=== PATIENT | male | born 1950 | race Caucasian/White ===

== ENCOUNTER → 2021-07-13 10:51 | Outpatient (BNVA) | payer OTHER, SELFPAY | PROVIDERS: Visit Provider Orthopaedic Surgery | DX: M25.561 Pain in right knee (principal); M76.891 Other specified enthesopathies of right lower limb, excluding foot | CPT/HCPCS: 73560; 73565 ==

== ENCOUNTER → 2021-12-26 13:01 | Outpatient (BNVA) | payer OTHER, SELFPAY | PROVIDERS: PCP Family Medicine; Referring Provider Family Medicine; Visit Provider Podiatrist Foot & Ankle Surgery | DX: R23.4 Changes in skin texture (principal); E11.42 Type 2 diabetes mellitus with diabetic polyneuropathy; L60.3 Nail dystrophy; M21.619 Bunion of unspecified foot; M21.41 Flat foot [pes planus] (acquired), right foot; M21.611 Bunion of right foot; M21.42 Flat foot [pes planus] (acquired), left foot; M21.612 Bunion of left foot | CPT/HCPCS: 11056; 11721; 99204 ==

== ENCOUNTER → 2022-01-21 13:59 | Outpatient (BNVA) | payer OTHER, SELFPAY | PROVIDERS: PCP Family Medicine; Visit Provider Internal Medicine | DX: I25.10 Atherosclerotic heart disease of native coronary artery without angina pectoris (principal); R07.9 Chest pain, unspecified; I10 Essential (primary) hypertension; E78.5 Hyperlipidemia, unspecified; Z95.1 Presence of aortocoronary bypass graft; I44.0 Atrioventricular block, first degree | CPT/HCPCS: 93005; 99204 ==

== ENCOUNTER 2022-03-01 10:25 | Outpatient (CLI) | payer OTHER, SELFPAY ==
[2022-03-01 10:51] VITALS: BMI 38.5
--- NOTE | 2022-03-01 10:53 | ECG_ITS ---
[facility] Test Date: 2022-03-01 Pat Name: German Carreon Department: Room: Gender: Male Business Coordinator: Mera Bravo : 1950 Requested By: Kamlesh Duckworth Order Number: [id number] Windy MD: Kamlesh Duckworth M.D. Interpretive Statements NAME OF STUDY: LEXISCAN SESTAMIBI STRESS TEST INDICATION: [sob/cp, ] Procedure: At the baseline, the blood pressure was 105/75 mmHg with a heart rate of 64 bpm. The electrocardiogram showed normal sinus rhythm, incomplete right bundle branch block, normal axis with normal ST and T's. The Lexiscan was infused over a period of 20 seconds. A total of 0.4 mg of Lexiscan was infused. The stress phase was continued for a total of 5 minutes. Heart rate was at the end of stress phase was 76 bpm and a blood pressure of 107/73 mmHg. The EKG at the peak infusion revealed since normal sinus rhythm with no significant ST-T wave changes. Sestamibi was injected 20 seconds after the Lexiscan infusion. Blood pressure at the end of recovery phase was 124/74 mmHg with a heart rate of 71 bpm. Conclusion: 1. Normal EKG response to Lexiscan infusion 2. No Lexiscan induced chest pain or cardiac arrhythmia. 3. Normal blood pressure and heart rate response. 4. Sestamibi/sestamibi perfusion scan pending; see separate report. Electronically Signed On 03-12-2022 14:53:02 CDT by Kamlesh Duckworth M.D. [email or web address]
--- NOTE | 2022-03-01 10:54 | NMCV_ITS ---
NM carolyne perf SPECT r/s* [id number] Velma German Age: 71 Gender: M : 1950 Exam Date: 03/01/2022 10:54 Ordering Phys: Kamlesh Duckworth M.D ([email or web address]) Technologist: MAHI Diaz Exam Location: [facility] Indications: SHORTNESS OF BREATH STRESS TEST Please see separate stress test report in [facility] for full findings IMAGE PROTOCOL Rest/Stress 1 Lexiscan Day Radiopharmaceutical Dose (mCi) Administration Site Administered by Rest: Tc-99m 10.6 IV MAHI Quintero Sestamibi Stress:Tc-99m 33.0 IV MAHI Diaz Sestamiiban Rest: 01-Mar-2022 60 Discovery 630 Stress: 01-Mar-2022 30 Discovery 630 0.4mg Lexiscan. Supine position only as patient was unable to lay prone. SPECT RESULTS Technical Quality: Good Raw Data Analysis: Normal Image Corrections: No attenuation or motion correction applied Summed Stress Score: 4 Summed Rest Score: 2 Summed Difference Score: 2 PERFUSION FINDINGS There is a moderate to large sized mostly reversible perfusion defect in the lateral, anterior and anrterolateral car[place]. This is consistent with ischemia in the LAD and Left circumflex artery territory. FUNCTIONAL RESULTS (calculated via Gated SPECT) Stress Image LV EF (%): 52 Stress EDV (mL):119 TID: 1.16 Stress ESV (mL):57 FUNCTIONAL FINDINGS: There is normal left ventricular systolic function. IMPRESSIONS 1. Abnormal myocardial perfusion imaging with evidence of moderate to large area of ischemia in the LAD and left circumflex artery territory. 2. LV systolic function is normal Kamlesh Duckworth MD (Electronically Signed) Final Date: 05 March 2022 17:43 S
[2022-03-01 12:39] VITALS: BP 124/74; PULSE 74
[2022-03-01] MEDS: regadenoson 0.4 Mg/5 ml Syringe IVP (12:41)
== END 2022-03-01 10:26 | disposition home or self-care (01) ==
LOC: CDL 10:27
PROVIDERS: PCP Family Medicine; Visit Provider Internal Medicine
DX: R06.02 Shortness of breath (principal); I25.9 Chronic ischemic heart disease, unspecified
CPT/HCPCS: 78452; 93017; A9500; J2785

== ENCOUNTER 2022-03-18 11:05 | Outpatient (CLI) | payer OTHER, SELFPAY ==
[2022-03-18 12:18] LABS: Basophils # 0.1 10^3/uL (0.0-0.1); Basophils % 0.9 %; Eosinophils # 0.3 10^3/uL (0.0-0.8); Eosinophils % 3.4 %; Hemoglobin 16.5 g/dL (11.7-16.6); Lymphocytes # 2.2 10^3/uL (0.8-4.8); Mean Corpuscular HGB Conc 33.7 g/dL (30.0-36.0); Mean Corpuscular Hemoglobin 29.5 pg (28.0-34.0); Mean Corpuscular Volume 87.7 fl (80-94); Mean Platelet Volume 10.8 fL (7.4-10.4); Monocytes # 0.6 10^3/uL (0.2-0.9); Neutrophils # 4.23 10^3/uL (1.8-7.7); Neutrophils % 57.4 %; Nucleated Red Blood Cells % 0 %; Platelet Count 201 10^3/cmm (130-400); Red Blood Count 5.59 10^6/uL (4.1-5.3); Red Cell Distribution Width 13.7 % (12.1-15.1); White Blood Count 7.4 10^3/uL (4.0-10.0)
[2022-03-18 12:33] LABS: INR 1.01 (0.83-1.21); Prothrombin Time (Patient) 13.6 Seconds (12.0-15.1)
== END 2022-03-18 11:06 | disposition home or self-care (01) ==
LOC: LAB 11:08
PROVIDERS: PCP Family Medicine; Visit Provider Internal Medicine
DX: I10 Essential (primary) hypertension (principal); R58 Hemorrhage, not elsewhere classified
CPT/HCPCS: 85025; 85610

== ENCOUNTER 2022-03-21 07:14 | Outpatient (CLI) | payer OTHER, SELFPAY ==
[2022-03-20 11:42] LABS: Anion Gap 13.7 (5-19); Blood Urea Nitrogen 20 mg/dL (8-23); Calcium 8.8 mg/dL (8.5-10.5); Carbon Dioxide 30 mmol/L (22-29); Chloride 97 mmol/L (98-107); Glucose 127 mg/dL (65-115); Osmolality Calculated 286 mOsm/kg (285-295); Potassium 4.7 mmol/L (3.5-5.1); Sodium 136 mmol/L (136-145)
[2022-03-21] VITALS (18 sets, daily range): BP systolic 87–137; BP diastolic 54–81; PULSE 57–84; RESP 14–23; TEMP 36.6; O2SAT 95–98; BMI 39.2
[2022-03-21] MEDS: diphenhydrAMINE 50 mg Capsule PO (08:12)
--- NOTE | 2022-03-21 08:30 | XACV_ITS ---
Exam Room: 2 Ht: 188 cm Wt: 139 kg BSA: 2.75 m2 Gender: Male : 1950 Any Known Allergies: No known allergies Exam Priority: Routine Procedure(s): Procedure Description: Diagnostic procedure Procedure Description: Venous Graft Catheterization Procedure Description: ANSARI Graft Catheterization Procedure Description: Miscellaneous Procedure Description: Angio-Seal Procedure Description: Coronary Angiography Diagnostic Cath Status: Elective Diagnostic Findings * INDICATION: 72-year-old man with past medical history of hypertension, coronary artery disease s/p three-vessel CABG in 2010 who was referred for new onset substernal chest pains for several months. He underwent stress test that shows moderate large area of ischemia in LAD and left circumflex artery territory. . * Left main artery: Patent LAD: Totally occluded in the proximal section. Gives rise to small sized diagonal arteries that are diffusely diseased. Left circumflex artery: Ostially occluded. RCA: Occluded SVG to RCA: Patent however does not supply a large area. SVG to OM: Patent. Has moderate stenosis close to anastomosis. ANSARI to LAD: Patent. However [place] artery after ANSARI touchdown has severe diffuse disease with subtotal occlusion.. * Coronary angiography shows right dominance. Conclusions 1. Left main artery: Patent LAD: Totally occluded in the proximal section. Gives rise to small sized diagonal arteries that are diffusely diseased. Left circumflex artery: Ostially occluded. RCA: Occluded SVG to RCA: Patent however does not supply a large area. SVG to OM: Patent. Has moderate stenosis close to anastomosis. ANSARI to LAD: Patent. However [place] artery after ANSARI touchdown has severe diffuse disease with subtotal occlusion.. 2. Patient has prior CABG. Recommendations * After touchdown LAD has diffuse disease and subtotal occlusion. Unfortunately it is not revascularizable given the diffuse disease and small sized vessel. We will medically manage CAD at this time. * Ordering echocardiogram * . * We will uptitrate Imdur as tolerated. * Outpatient cardiology follow-up 2 weeks. Interventional RX Recommendation: medical therapy and/or counseling Diagnostic RX Recommendation: medical therapy and/or counseling Pressures Phase:Rest AO : 100 / 75 ( 87 ) @ 10:11:00 AM 105 / 73 ( 88 ) @ 10:15:00 AM 106 / 77 ( 90 ) @ 10:22:00 AM Clinical Evaluation EBL: 5mL-10mL Procedural Details Procedure Consent Obtained. Pre-Procedure Time Out. Identified patient by full name and date of as verbalized by the patient/guarantor. Does the consent match the physician's order: Yes. Accurate & Complete Informed Consent: Yes. Inpatient/Outpatient History & Physical on Chart: Yes. If H&P is completed, is and addenduem needed: No; If yes, is the addendum complete: N/A. Relevant Radiology Images available: Yes. Pre-op teaching completed and patient verbalized understanding. The risks, benefits, and alternatives of sedation and/or procedure were discussed by physician. The patient agrees to continue. Procedure started. [facility] Clinical Fraility Score: 3: Managing Well. Physician arrived. Supply Chain Intern Indications: Suspected CAD. Chest Pain Symptom Assessment: Atypical Angina. Correct patient, site and procedure confirmed by cath team. Current diagnosis: Chest Pain. PERRLA. Strong, equal hand material specialist bilaterally. Lungs clear x 5 lobes. IV Site on Arrival: 20 gauge in the right anticubital. IV Fluids: 0.9% NaCl at KVO. 0 mL infused prior to dairy laboratory technician. Pre Procedural Pulses: bilateral dorsalis pedis was 2+. Pre Procedural Pulses: bilateral posterior tibial was 1+. Pre Procedural Pulses: right radial was 1+. Oxygen started at 2liters/min via nasal canula. bilateral groins was prepped with chloroprep then draped in the usual sterile fashion. Baseline sample Acquired. HR: 66 BPM. Physician scrubbed in. Immediate Pre-Procedure Time Out. Correct Patient: Yes; Correct Procedure: Yes; Correct Site: Yes; Correct Patient Position: Yes; Correct Supplies: Yes; Dried Flammable Prep: Yes; Blood Products Available: N/A;. Lidocaine 1% infiltrated to the right groin. Arterial access obtained with micropuncture set. A 6 greek JL4 catheter in over wire. Multiple views taken of left coronary artery. Catheter removed over the standard wire. A 5 greek JR4 catheter in over wire. A view taken of right coronary artery. SVG's to RCA visualized and patent. ANSARI to LAD visualized. Catheter removed over the standard wire. A 5 greek LCB catheter in over wire. Catheter removed over the standard wire. A 5 greek AL1 catheter in over wire. Catheter removed over the standard wire. A 5 greek Angled Pig catheter in over wire. Catheter removed over the standard wire. A 5 greek JR4 catheter in over wire. Catheter removed over the standard wire. A 5 greek AL1 catheter in over wire. SVG's to OM visualized and patent. Catheter removed over the standard wire. A Right femoral angiogram was performed to determine safe placement of closure device. Lidocaine 1% infiltrated to the right groin. A Angio-Seal VIP ([place]) was successful obtaining hemostatsis at the Right Femoral artery insertion site. Post Procedure: Pulses reassessed and unchanged. PERRLA. Strong, equal hand material specialist bilaterally. No VTE prophylaxis required. Total IV fluids: 70 mL. Medication's Wasted: Lidocaine 1% = 2 mL. Contrast type used: Omnipaque 300 mgI/mL, 500 mL bottle. Complications: None. Estimated blood loss: 5mL-10mL. Responsiveness - Normal response to verbal stimuli; alert and oriented, PERRLA. Airway - Unaffected, no intervention required; spontaneous ventilation. Circulation: W/N/L, pulses unchanged. Nausea/Vomiting: No. Procedure completed. Patient transferred by bed to ICU. Vital chart was stopped. Access Site Site: Right Femoral artery Sheath Size: 6 Fr Hemostasis Method: Angio-Seal VIP ([place]) Hemostasis Success: Successful Procedure Medications Start: 9:00 AM Stop: 9:00 AM Medication: Versed Amount: 1 mg Route: I.V. Start: 9:00 AM Stop: 9:00 AM Medication: Fentanyl Amount: 50 mcg Route: I.V. Start: 9:06 AM Stop: 9:06 AM Medication: Versed Amount: 1 mg Route: I.V. Start: 9:14 AM Stop: 9:14 AM Medication: Versed Amount: 1 mg Route: I.V. Start: 9:27 AM Stop: 9:27 AM Medication: Versed Amount: 1 mg Route: I.V. Start: 9:49 AM Stop: 9:49 AM Medication: Fentanyl Amount: 25 mcg Route: I.V. Start: 9:52 AM Stop: 9:52 AM Medication: Fentanyl Amount: 25 mcg Route: I.V. I, the attending physician, have reviewed and verified all procedure medications. Yes, all medications given per verbal order History/Risk Factors Hypertension: Yes Dyslipidemia: Yes Peripheral Arterial Disease (PAD): No Myocardial Infarction (MT): No Obesity: No Renal Disease: No Prior Interventions CABG: Yes Valve Surgery: No Report Signatures Finalized by Kamlesh Duckworth MD on 03/28/2022 11:43 AM
--- NOTE | 2022-03-21 08:54 | P.HP_ITS ---
Same Day Surgery H&P Indication for Procedure/HPI DATE OF PROCEDURE: March 21, 2022 CHIEF COMPLAINT/INDICATIONFOR SURGICAL PROCEDURE: Chest pain/abnormal stress test PREOP DIAGNOSIS: Chest pain/abnormal stress test PLANNED PROCEDURE: Operation Date: 03/21/22 08:30 Proposed Procedures p Cardiac Catheterization(Left) - Kamlesh Duckworth M.D Possible percutaneous coronary intervention 71-year-old man with past medical history of hypertension, coronary artery disease s/p three-vessel CABG in 2010 was referred for new onset chest pain symptoms. Imdur was uptitrated and chest discomfort symptoms are relatively better but he still is getting those. Stress test showed moderate to large area of reversible ischemia in LAD and left circumflex artery territory. Plan for left heart cath with possible percutaneous coronary intervention. Medications/Allergies* Home Medications Medication Instructions Recorded Confirmed Type artifi.tears(hypromellose)(PF) 0.3 1 drp OPHTHALMIC (EYE) DAILY PRN 07/13/21 03/21/22 History % eye drops aspirin 81 mg tablet,delayed 81 mg PO DAILY 07/13/21 03/21/22 History release atenolol 100 mg tablet 100 mg PO DAILY 07/13/21 03/21/22 History lisinopril 20 1 tab PO DAILY 07/13/21 03/21/22 History mg-hydrochlorothiazide 25 mg tablet pregabalin 150 mg capsule 150 mg PO DAILY 07/13/21 03/21/22 History sildenafil 25 mg tablet 25 mg PO DAILY PRN 07/13/21 03/21/22 History sildenafil 50 mg tablet 50 mg PO DAILY PRN 07/13/21 03/21/22 History simvastatin 80 mg tablet 80 mg PO DAILY 07/13/21 03/21/22 History tamsulosin 0.4 mg capsule 0.4 mg PO DAILY 07/13/21 03/21/22 History alpha lipoic acid 600 mg capsule 600 mg PO BID 01/21/22 03/21/22 History citalopram 40 mg tablet 40 mg PO DAILY tab 01/21/22 03/21/22 History doxepin 75 mg capsule 75 mg PO BID cap 01/21/22 03/21/22 History glipizide 5 mg tablet 5 mg PO DAILY tab 01/21/22 03/21/22 History hemp PO 01/21/22 03/11/22 History isosorbide mononitrate 60 mg 60 mg PO DAILY 01/21/22 03/21/22 History tablet,extended release 24 hr metformin 500 mg tablet 1,000 mg PO BID tab 01/21/22 03/21/22 History Allergies/Adverse Reactions Allergy/AdvReac Type Severity Reaction Status Date / Time No Known Allergies Allergy Verified 03/11/22 11:06 Current Medications: Generic Name Dose Route Start Last Admin Trade Name Freq PRN Reason Stop Dose Admin Sodium Chloride 1,000 mls @ 50 mls/hr 03/21/22 07:30 03/21/22 08:12 Sodium Chloride 0.9% IV 03/22/22 03:29 Not Given .Q20H ONE Pertinent History/Comorbid Conditions* Medical History (Updated 01/21/22 @ 15:42 by Kamlesh Duckworth M.D) Alcohol abuse Atherosclerotic heart disease of [place] coronary artery with unspecified angina pectoris Benign prostatic hyperplasia with lower urinary tract symptoms Carpal tunnel syndrome History of malignant melanoma Hyperlipidemia Hypertension Major depressive disorder Male erectile dysfunction Malignant neoplasm of skin Multiple nodules of lung Opioid abuse PTSD (post-traumatic stress disorder) Thoracic aortic aneurysm without rupture Type 2 diabetes mellitus Social History Smoking and tobacco status: never smoked Alcohol intake: former History of recent travel: Yes Pertinent Exam Findings alert, oriented x 3, clear to auscultation bilaterally and regular rate & rhythm Conscious Sedation Assessment PATIENT ASSESSED PRIOR TO SEDATION, WITH NO CHANGE NOTED: Yes AIRWAY EVAL/ANESTHESIA PLAN: normal airway, ASA III, Local Anesthesia, Risks, benefits & alternatives of sedation and/or procedure discussed and Patient agrees to continue as planned ADDITIONAL INFORMATION: Moderate sedation Recommendations Surgery/Procedure today (Left heart cath with possible percutaneous coronary intervention) Coding Level of Care Code Acute Automation Sales Manager for Daniella Mosquera
--- NOTE | 2022-03-21 10:30 | PC.NURSE ---
Pt was admitted to ICU via bed post cath. Dressing in place over right groin site. No hematoma noted.
--- NOTE | 2022-03-21 15:45 | PC.NURSE ---
All discharge instructions were given to pt and teach back method was used. Pt asked to be discharged so he could go to the vending machines and wait on his . Right groin site showed no signs of hematoma.
== END 2022-03-21 15:00 | disposition home or self-care (01) ==
LOC: CCL 07:21 → ICU 09:03
PROVIDERS: PCP Family Medicine; Visit Provider Internal Medicine
DX: I25.10 Atherosclerotic heart disease of native coronary artery without angina pectoris (principal); I10 Essential (primary) hypertension; Z95.1 Presence of aortocoronary bypass graft; E78.5 Hyperlipidemia, unspecified; E11.9 Type 2 diabetes mellitus without complications
CPT/HCPCS: 36415; 80048; 93455; 96360; 99152; 99153; C1760; C1769; C1887; C1894; J1644; J2250; J3010; J7030; Q0163; Q9967

== ENCOUNTER → 2022-03-26 13:41 | Outpatient (BNVA) | payer OTHER, SELFPAY | PROVIDERS: PCP Family Medicine; Visit Provider Internal Medicine | DX: I25.119 Atherosclerotic heart disease of native coronary artery with unspecified angina pectoris (principal); I10 Essential (primary) hypertension; E78.5 Hyperlipidemia, unspecified | CPT/HCPCS: 99213; 99214 ==

== ENCOUNTER 2022-04-08 13:59 | Outpatient (CLI) | payer OTHER, SELFPAY ==
--- NOTE | 2022-04-08 14:30 | USCV_ITS ---
German Carreon Age: 72 Gender: M : 1950 Exam Date: 04/08/2022 15:09 Ordering Phys: Kamlesh Duckworth M.D ([email or web address]) Technologist: Fadumo Cavazos Exam Location: [facility] Indication: SOB, CP, CAD BP: 110 / 70 HR: 62 Rhythm: Sinus Technical Quality: Fair MEASUREMENTS (Male / Female) Normal Values 2D ECHO LV Diastolic Diameter PLAX 4.1 cm 4.2 - 5.9 / 3.9 - 5.3 cm LV Systolic Diameter PLAX 2.4 cm IVS Diastolic Thickness 1.5 cm 0.6 - 1.0 / 0.6 - 0.9 cm IVS Systolic Thickness 1.8 cm LVPW Diastolic Thickness 1.8 cm 0.6 - 1.0 / 0.6 - 0.9 cm LVPW Systolic Thickness 2.8 cm LVOT Diameter 2.3 cm LV Ejection Fraction 2D Teich 73.5 % LV Ejection Fraction MOD 2C 55.5 % LV Ejection Fraction 2C AL 58.6 % LA Diameter 4.0 cm LA Width 3.6 cm LA Height 5.8 cm RA Width 4.5 cm RA Height 4.1 cm Aorta at Sinotubular Diameter 3.3 cm IVC Diameter 1.6 cm DOPPLER AV Peak Velocity 113.0 cm/s LVOT Peak Velocity 93.0 cm/s AV Area Cont Eq vti 3.2 cm squared AV Area Cont Eq pk 3.4 cm squared MV Peak Velocity 83.0 cm/s MV Area PHT 4.3 cm squared Mitral E to A Ratio 1.1 MV E' Velocity 37.2 cm/s Mitral E to MV E' Ratio 8.8 Mitral E to LV E' Lateral Ratio 7.8 Mitral E to LV E' Septal Ratio 10.1 Right Atrial Pressure 3.0 mmHg PV Peak Velocity 55.0 cm/s RV Acceleration Time 0.1 s FINDINGS Left Ventricle Normal left ventricular size. Technically limited quality echocardiogram because of poor ultrasonic windows. Grossly LV systolic function is moderately reduced. Accurate assessment of regional wall motion abnormality is not possible because of poor ultrasonic windows Right Ventricle The right ventricle is normal in size and function. Right Atrium The right atrium is normal in size. Left Atrium The left atrium is normal in size. Mitral Valve Structurally normal mitral valve without significant stenosis or prolapse. There is no mitral regurgitation. Aortic Valve Grossly normal. Mild aortic regurgitation. No significant stenosis Tricuspid Valve Grossly normal Pulmonic Valve Not well-visualized Pericardium Normal pericardium without effusion. Aorta Mildly dilated aorta IVC CONCLUSIONS Technically limited quality echocardiogram because of poor ultrasonic windows. Grossly LV systolic function is moderately reduced. Regional wall motion abnormalities cannot be assessed accurately because of poor ultrasonic windows. Mild aortic regurgitation. Mildly dilated aorta No comparison studies are available Kamlesh Duckworth MD (Electronically Signed) Final Date: 17 April 2022 18:01 S
== END 2022-04-08 14:00 | disposition home or self-care (01) ==
LOC: RAD 14:01
PROVIDERS: PCP Family Medicine; Visit Provider Internal Medicine
DX: R06.02 Shortness of breath (principal); R07.9 Chest pain, unspecified; I25.10 Atherosclerotic heart disease of native coronary artery without angina pectoris; I35.1 Nonrheumatic aortic (valve) insufficiency
CPT/HCPCS: 93306

== ENCOUNTER → 2022-04-24 10:54 | Outpatient (BNVA) | payer OTHER, SELFPAY | PROVIDERS: PCP Family Medicine; Visit Provider Podiatrist Foot & Ankle Surgery | DX: M21.41 Flat foot [pes planus] (acquired), right foot (principal); M21.611 Bunion of right foot; M21.42 Flat foot [pes planus] (acquired), left foot; M21.612 Bunion of left foot; R23.4 Changes in skin texture; L60.3 Nail dystrophy; E11.42 Type 2 diabetes mellitus with diabetic polyneuropathy; Z79.84 Long term (current) use of oral hypoglycemic drugs | CPT/HCPCS: 99214 ==

== ENCOUNTER 2022-09-19 13:49 | Outpatient (CLI) | payer OTHER, SELFPAY ==
[2022-09-19 14:25] LABS: Basophils # 0.1 10^3/uL (0.0-0.1); Basophils % 0.8 %; Eosinophils # 0.2 10^3/uL (0.0-0.8); Eosinophils % 3.2 %; Hematocrit 53.4 % (42.0-52.0); Hemoglobin 17.6 g/dL (11.7-16.6); Lymphocytes # 3.3 10^3/uL (0.8-4.8); Lymphocytes % 43.6 %; Mean Corpuscular Hemoglobin 27.6 pg (28.0-34.0); Mean Corpuscular Volume 83.8 fl (80-94); Monocytes # 0.6 10^3/uL (0.2-0.9); Neutrophils # 3.36 10^3/uL (1.8-7.7); Neutrophils % 44.3 %; Nucleated Red Blood Cells % 0 %; Platelet Count 234 10^3/cmm (130-400); Red Blood Count 6.37 10^6/uL (4.1-5.3); Red Cell Distribution Width 15.1 % (12.1-15.1); White Blood Count 7.6 10^3/uL (4.0-10.0)
[2022-09-19 14:46] LABS: Alanine Aminotransferase 25 U/L (0-41); Albumin Level 4.2 g/dL (3.5-5.2); Alkaline Phosphatase 117 U/L (40-130); Anion Gap 13.3 (5-19); Aspartate Amino Transferase 21 U/L (0-40); Blood Urea Nitrogen 16 mg/dL (8-23); Calcium 9.7 mg/dL (8.5-10.5); Carbon Dioxide 26 mmol/L (22-29); Chloride 99 mmol/L (98-107); Glucose 159 mg/dL (65-115); Lactate Dehydrogenase 193 U/L (135-225); Osmolality Calculated 283 mOsm/kg (285-295); Potassium 4.3 mmol/L (3.5-5.1); Sodium 134 mmol/L (136-145); Total Bilirubin 0.5 mg/dL (0.15-1.2); Total Protein 7.2 g/dL (6.6-8.7)
== END 2022-09-19 13:50 | disposition home or self-care (01) ==
PROVIDERS: PCP Family Medicine; Visit Provider Nurse Practitioner Family
DX: R53.83 Other fatigue (principal); R59.1 Generalized enlarged lymph nodes; Z85.820 Personal history of malignant melanoma of skin
CPT/HCPCS: 36415; 80053; 83615; 85025

== ENCOUNTER → 2022-09-24 15:25 | Outpatient (BNVA) | payer OTHER, SELFPAY | PROVIDERS: PCP Family Medicine; Visit Provider Internal Medicine | DX: R07.9 Chest pain, unspecified (principal); I10 Essential (primary) hypertension; E78.5 Hyperlipidemia, unspecified; I25.10 Atherosclerotic heart disease of native coronary artery without angina pectoris | CPT/HCPCS: 99214 ==

== ENCOUNTER → 2022-12-17 10:10 | Outpatient (BNVA) | payer OTHER, SELFPAY | PROVIDERS: PCP Family Medicine; Visit Provider Podiatrist Foot & Ankle Surgery | DX: E11.8 Type 2 diabetes mellitus with unspecified complications (principal); R23.4 Changes in skin texture; E11.42 Type 2 diabetes mellitus with diabetic polyneuropathy; L60.3 Nail dystrophy; M21.42 Flat foot [pes planus] (acquired), left foot; M21.41 Flat foot [pes planus] (acquired), right foot; M21.611 Bunion of right foot; M21.612 Bunion of left foot; Z79.84 Long term (current) use of oral hypoglycemic drugs | CPT/HCPCS: 99213 ==

== ENCOUNTER 2022-12-20 11:49 | Outpatient (CLI) | payer OTHER, SELFPAY ==
--- NOTE | 2022-12-20 12:02 | CT_ITS ---
WS: [id number] CT CHEST, ABDOMEN AND PELVIS WITH AND WITHOUT CONTRAST. HISTORY: Malignant melanoma excised additional Lymphadenopathy. TECHNIQUE: Noncontrast imaging through the chest. Contiguous 5 mm axial imaging performed through the chest, abdomen and pelvis with IV contrast, oral contrast has been provided. Coronal and sagittal re formats chest. Coronal and sagittal reformats through the abdomen and pelvis. All CT scans at [facility] use at least one of these dose optimization techniques: automated exposure control; mA an d/or kV adjustment per patient size (includes targeted exams where dose is matched to clinical indica tion); or iterative reconstruction. CONTRAST: Omnipaque 350; 100 mL IV. DLP: 3101.04 mGy.cm COMPARISON: None available. Chest CT: RIGHT upper lobe and LEFT lower lobe calcified nodules consistent with granulomas. There is a noncalcified 2 mm nodule in the superior segment RIGHT lower lobe. Additional noncalcified 3 mm no dule at the RIGHT lung base. No pneumonia. Atherosclerosis aorta. Prior CABG. Normal size pulmonary a rtery. Heart size is normal. No pericardial or pleural effusions. No mediastinal or hilar adenopathy. No destructive bone lesions. Abdomen CT: Small hiatal hernia. No metastatic lesions within the liver. Normal portal vein. Well-dis tended gallbladder. Small amount of debris layering in the dependent gallbladder may be stones. No pe richolecystic fluid. Fatty replacement of the pancreas. No bile duct dilatation. Normal spleen and ad renal glands. No renal obstruction. Mild atherosclerosis aorta. Stomach is nondistended. No small bowel obstruction. Moderate diffuse constipation. Appendix is not d efinitely visualized. No colon obstruction. No ascites or adenopathy. No mesenteric implants. Pelvic CT: Minimally distended urinary bladder. No prostate enlargement. No adenopathy. No enlarged i nguinal lymph nodes are identified. No soft tissue implants are identified. No osteoblastic or osteolytic bone disease. CT/[place]dpel wo/w [id number] IMPRESSION: 1. No suspicious lymphadenopathy within the chest, abdomen or pelvis. 2. No ascites. 3. Benign calcified granulomata RIGHT upper and LEFT lower lobes. 4. Additional very small micronodules in the RIGHT lower lobe. Largest nodule is 3 mm. These are typically benign. With patient's history of possible metasta tic disease consider 3-[address] follow-up. 5. Mild debris in the gallbladder may be cholelithiasis. No evidence for acute cholecystitis. 6. Diffuse constipation.
[2022-12-20] MEDS: iohexol 350 mg/mL 500 mL Btl (per mL) IV (12:04)
[2022-12-20] MEDS: iohexol 350 mg/mL 500 mL Btl (per mL) PO (12:05)
[2022-12-20 13:48] LABS: Blood Urea Nitrogen 23 mg/dL (8-23)
== END 2022-12-20 11:50 | disposition home or self-care (01) ==
LOC: RAD 11:52
PROVIDERS: PCP Family Medicine; Visit Provider Nurse Practitioner Family
DX: Z85.820 Personal history of malignant melanoma of skin (principal); R53.83 Other fatigue; R59.1 Generalized enlarged lymph nodes; K59.00 Constipation, unspecified
CPT/HCPCS: 71260; 74178; 82565; 84520; Q9967

== ENCOUNTER 2022-12-27 11:51 | Outpatient (CLI) | payer OTHER, SELFPAY ==
--- NOTE | 2022-12-27 12:04 | CT_ITS ---
WS: [id number] CT NECK WITH CONTRAST HISTORY: Malignant melanoma excised additional Lymphadenopathy. TECHNIQUE: Contiguous 5 mm axial images are performed through the neck with intravenous contrast. Sag ittal and coronal reformats are also submitted. All CT scans at [facility] use at least one o f these dose optimization techniques: automated exposure control; mA and/or kV adjustment per patient size (includes targeted exams where dose is matched to clinical indication); or iterative reconstruc tion. CONTRAST: CONTRAST: Omnipaque 350; 100 mL IV. DLP: 365.08 mGy.cm COMPARISON: None available. Marker is placed along the LEFT neck at the site of the prior skin biopsy. There is very minimal soft tissue thickening but no aggressive process identified by CT. Nasopharynx, oropharynx, hypopharynx and larynx are unremarkable. No soft tissue masses or abnormal e nhancement. Torus tubarius and fossa of [place]ull[place] and parapharyngeal fat are normal. No significant lymphadenopathy is identified. Thyroid gland and salivary glands are normally enhancing with no masses. No osseous abnormalities. Visualized portions of the skull base demonstrate no abnormalities. Orbits and globes are within norm al limits. No soft tissue masses. Visualized paranasal sinuses and mastoid air cells are normal. Granuloma RIGHT upper lobe. Atherosclerosis aorta and carotid arteries. CT/CT neck w con* [id number] IMPRESSION: 1. No lymphadenopathy throughout the cervical chains. 2. No residual mass identified at the region of the skin biopsy.
[2022-12-27] MEDS: iohexol 350 mg/mL 100 mL Btl IV (12:45)
== END 2022-12-27 11:52 | disposition home or self-care (01) ==
PROVIDERS: PCP Family Medicine; Visit Provider Nurse Practitioner Family
DX: Z85.820 Personal history of malignant melanoma of skin (principal); R59.1 Generalized enlarged lymph nodes; R53.83 Other fatigue
CPT/HCPCS: 70491; Q9967

== ENCOUNTER → 2023-02-03 10:44 | Outpatient (BNVA) | payer OTHER, SELFPAY | PROVIDERS: PCP Family Medicine; Visit Provider Internal Medicine Pulmonary Disease | DX: R91.8 Other nonspecific abnormal finding of lung field (principal); Z85.820 Personal history of malignant melanoma of skin; I25.10 Atherosclerotic heart disease of native coronary artery without angina pectoris; Z95.5 Presence of coronary angioplasty implant and graft | CPT/HCPCS: 99204 ==

== ENCOUNTER → 2023-03-26 14:13 | Outpatient (BNVA) | payer OTHER, SELFPAY | PROVIDERS: PCP Family Medicine; Visit Provider Internal Medicine | DX: R07.9 Chest pain, unspecified (principal); I10 Essential (primary) hypertension; E78.5 Hyperlipidemia, unspecified; I25.10 Atherosclerotic heart disease of native coronary artery without angina pectoris | CPT/HCPCS: 99214 ==

== ENCOUNTER 2023-07-21 12:00 | Outpatient (CLI) | payer OTHER, SELFPAY ==
--- NOTE | 2023-07-21 12:10 | CT_ITS ---
WS: [id number] CT CHEST TECHNIQUE: Contrast enhanced CT of the chest with coronal and sagittal reformatted images. CLINICAL INFORMATION: FOLLOW UP COMPARISON: CT 12/20/2022 DLP: 739.[address] scans at [facility] use at least one of these dose optimization techniques: automated e xposure control; mA and/or kV adjustment per patient size (includes targeted exams where dose is matc hed to clinical indication); or iterative reconstruction. FINDINGS: No acute pulmonary infiltrates. No focal pneumonia or pleural fluid. A few stable tiny nodules RIGHT lower lobe. These are unchanged. No new suspicious pulmonary parenchymal opacities. Calcified granulo ma RIGHT upper and RIGHT lower lobes. Cholelithiasis. Adrenal glands are normal. IMPRESSION: 1. Previously described tiny nodules in RIGHT lower lobe are stable. No new suspicious pulmonary par enchymal opacities. 2. No mediastinal or hilar lymphadenopathy. 3. Cholelithiasis.
[2023-07-21] MEDS: iohexol 350 mg/mL 500 mL Btl (per mL) IV (12:49)
== END 2023-07-21 12:01 | disposition home or self-care (01) ==
LOC: RAD 12:00
PROVIDERS: PCP Family Medicine; Visit Provider Family Medicine
DX: Z01.89 Encounter for other specified special examinations (principal); R91.8 Other nonspecific abnormal finding of lung field; K80.20 Calculus of gallbladder without cholecystitis without obstruction
CPT/HCPCS: 71260; Q9967

== ENCOUNTER → 2023-08-07 08:48 | Outpatient (BNVA) | payer OTHER, SELFPAY | PROVIDERS: PCP Family Medicine; Visit Provider Internal Medicine Pulmonary Disease | DX: R91.8 Other nonspecific abnormal finding of lung field (principal); Z85.820 Personal history of malignant melanoma of skin; I25.10 Atherosclerotic heart disease of native coronary artery without angina pectoris; Z95.5 Presence of coronary angioplasty implant and graft | CPT/HCPCS: 99214 ==

== ENCOUNTER → 2023-08-20 13:05 | Outpatient (BNVA) | payer OTHER, SELFPAY | PROVIDERS: PCP Family Medicine; Visit Provider Nurse Practitioner Family | DX: L57.8 Other skin changes due to chronic exposure to nonionizing radiation (principal); L81.4 Other melanin hyperpigmentation; D22.4 Melanocytic nevi of scalp and neck; Z85.828 Personal history of other malignant neoplasm of skin; Z08 Encounter for follow-up examination after completed treatment for malignant neoplasm; Z85.820 Personal history of malignant melanoma of skin; L57.0 Actinic keratosis | CPT/HCPCS: 17000; 99213 ==

== ENCOUNTER → 2023-10-01 14:42 | Outpatient (BNVA) | payer OTHER, SELFPAY | PROVIDERS: PCP Family Medicine; Visit Provider Internal Medicine | DX: R07.9 Chest pain, unspecified (principal); I10 Essential (primary) hypertension; E78.5 Hyperlipidemia, unspecified; I25.10 Atherosclerotic heart disease of native coronary artery without angina pectoris | CPT/HCPCS: 99214 ==

== ENCOUNTER 2024-01-08 13:33 | Outpatient (CLI) | payer OTHER, SELFPAY ==
--- NOTE | 2024-01-08 13:36 | MR_ITS ---
WS: [id number] MRI BRAIN WITHOUT CONTRAST HISTORY: VERTIGO COMPARISON: None available. TECHNIQUE: Diffusion imaging, multiplanar T1, T2 and FLAIR imaging obtained. No evidence for acute infarct or hemorrhage. Harris-white matter differentiation is normal. Moderate patchy and confluent small vessel ischemic disease throughout the white matter. No ischemic change in the wolfgang or cerebellum. Mild temporal lobe atrophy. Ventricles and extra-axial spaces are normal. No inferior displacement of cerebellar tonsils. The sella turcica and pituitary gland are unremarkabl e. Dural venous sinuses and [place] demonstrate no abnormality on this unenhanced studies. Very small caliber distal RIGHT vertebral artery. Paranasal sinuses: Clear. Mastoid air cells: Normal. Calvarium and scalp: Intact. IMPRESSION: 1. No acute infarct. 2. Moderate small vessel ischemic changes bilaterally throughout the white matter. No prior infarct.
== END 2024-01-08 13:34 | disposition home or self-care (01) ==
LOC: RAD 13:33
PROVIDERS: PCP Family Medicine; Visit Provider Family Medicine
DX: R42 Dizziness and giddiness (principal)
CPT/HCPCS: 70551

== ENCOUNTER → 2024-01-27 10:18 | Outpatient (BNVA) | payer OTHER, SELFPAY | PROVIDERS: PCP Family Medicine; Visit Provider Nurse Practitioner Family | DX: L57.0 Actinic keratosis (principal); L81.4 Other melanin hyperpigmentation; D22.5 Melanocytic nevi of trunk; D17.21 Benign lipomatous neoplasm of skin and subcutaneous tissue of right arm; L60.3 Nail dystrophy; Z85.820 Personal history of malignant melanoma of skin; Z85.828 Personal history of other malignant neoplasm of skin | CPT/HCPCS: 17000; 99213 ==

== ENCOUNTER → 2024-02-02 10:43 | Outpatient (BNVA) | payer OTHER, SELFPAY | PROVIDERS: PCP Family Medicine; Visit Provider Podiatrist Foot & Ankle Surgery | DX: E11.42 Type 2 diabetes mellitus with diabetic polyneuropathy; R23.4 Changes in skin texture; M21.611 Bunion of right foot; M21.612 Bunion of left foot; Z79.84 Long term (current) use of oral hypoglycemic drugs | CPT/HCPCS: 99213 ==

== ENCOUNTER → 2024-04-07 15:18 | Outpatient (BNVA) | payer OTHER, SELFPAY | PROVIDERS: PCP Family Medicine; Visit Provider Internal Medicine | DX: R07.9 Chest pain, unspecified (principal); I10 Essential (primary) hypertension; E78.5 Hyperlipidemia, unspecified; I25.10 Atherosclerotic heart disease of native coronary artery without angina pectoris | CPT/HCPCS: 99214 ==

== ENCOUNTER 2024-04-09 13:37 | Outpatient (CLI) | payer OTHER, SELFPAY ==
--- NOTE | 2024-04-09 13:39 | CT_ITS ---
WS: [id number] CTA THORACIC TECHNIQUE: Contrast enhanced CTA of the thoracic aorta with coronal and sagittal reformatted images a nd maximum intensity projection (MIP) images. CLINICAL INFORMATION: THORACIC ANEURYSM COMPARISON: CT 2022 DLP: 1188.[address] scans at [facility] use at least one of these dose optimization techniques: automated e xposure control; mA and/or kV adjustment per patient size (includes targeted exams where dose is matc hed to clinical indication); or iterative reconstruction. FINDINGS: Slightly ectatic ascending thoracic aorta measuring 4.1 cm. Aortic calcification. Coronary calcificat ion. Sternotomy with CABG. Proximal main pulmonary arteries are normal. Adrenal glands are normal. Mild thoracic curve. Hypertro phic changes thoracic spine. A few scattered subcentimeter pulmonary nodules largest measuring 4 mm R IGHT lower lobe. Nodule with central calcification LEFT lower lobe. Few calcified granulomas. Cholelithiasis. Adrenal glands are normal. CT/CT angio chest [id number] IMPRESSION: 1. Slightly ectatic ascending thoracic aorta measuring 4.1 cm. Normal aortic a rch and descending thoracic aorta. 2. Prior CABG. Coronary calcification. 3. Cholelithiasis 4. No other acute findings.
[2024-04-09] MEDS: iohexol 350 mg/mL 500 mL Btl (per mL) IV (14:13)
== END 2024-04-09 13:38 | disposition home or self-care (01) ==
LOC: RAD 13:37
PROVIDERS: PCP Family Medicine; Visit Provider Family Medicine
DX: Z95.1 Presence of aortocoronary bypass graft (principal); I77.810 Thoracic aortic ectasia; R91.8 Other nonspecific abnormal finding of lung field; I25.10 Atherosclerotic heart disease of native coronary artery without angina pectoris; M43.8X4 Other specified deforming dorsopathies, thoracic region; K80.20 Calculus of gallbladder without cholecystitis without obstruction
CPT/HCPCS: 71275; Q9967

== ENCOUNTER 2024-05-07 13:42 | Outpatient (CLI) | payer OTHER, SELFPAY ==
--- NOTE | 2024-05-07 14:15 | USCV_ITS ---
German Carreon Age: 74 Gender: M : 1950 Exam Date: 05/07/2024 14:01 Ordering Phys: Kamlesh Duckworth M.D ([email or web address]) Technologist: CT Exam Location: [facility] Indication: cp BP: 140 / 76 HR: 71 Rhythm: Sinus Technical Quality: Adequate MEASUREMENTS (Male / Female) Normal Values 2D ECHO LVOT Diameter 2.6 cm LV Ejection Fraction MOD 4C 41.5 % LV Ejection Fraction MOD 2C 50.1 % LV Ejection Fraction 2C AL 49.9 % LA Diameter 4.1 cm RA Systolic Volume 4C AL 47.9 ml RA Systolic Volume 4C MOD 48.9 ml LA Sys Volume AL 62.6 cm cubed LA Sys Volume Index AL 22.6 cm cubed/m squared Aorta at Sinotubular Diameter 3.3 cm M-MODE LA Ao Ratio MM 1.4 AV Cusp Separation MM 2.6 cm DOPPLER AV Peak Velocity 102.0 cm/s LVOT Peak Velocity 78.0 cm/s AV Area Cont Eq vti 3.8 cm squared AV Area Cont Eq pk 4.1 cm squared MV Peak Velocity 87.0 cm/s MV Area PHT 3.7 cm squared Mitral E to A Ratio 1.1 TR Peak Velocity 107.0 cm/s TR Peak Gradient 4.6 mmHg TV Peak E Velocity 79.0 cm/s Right Atrial Pressure 3.0 mmHg Pulmonary Artery Systolic Pressu 7.6 mmHg PV Peak Velocity 77.0 cm/s FINDINGS Left Ventricle Technically limited quality echocardiogram because of poor ultrasonic windows. Left ventricle is normal in size. LV systolic function is normal with EF of 50 to 55%. No regional wall motion abnormalities are seen. Right Ventricle Normal in size and function Right Atrium Normal in size Left Atrium Normal in size Mitral Valve Mitral valve is thickened. Trace mitral regurgitation. Aortic Valve Structurally normal aortic valve. Mild aortic regurgitation. No significant stenosis. Tricuspid Valve Insufficient TR jet to calculate RVSP. Pulmonic Valve Not well visualized Pericardium Normal Aorta Normal in size IVC Not well visualized CONCLUSIONS Technically limited quality echocardiogram because of poor ultrasonic windows. LV systolic function is normal with EF of 50 to 55%. Trace mitral regurgitation Mild aortic regurgitation Accurate comparison with prior study is not possible because of limited visualization on prior study. Kamlesh Duckworth MD (Electronically Signed) Final Date: 14 May 2024 22:18 S
== END 2024-05-07 13:43 | disposition home or self-care (01) ==
LOC: RAD 13:44
PROVIDERS: PCP Family Medicine; Visit Provider Internal Medicine
DX: R07.9 Chest pain, unspecified (principal)
CPT/HCPCS: 93306

== ENCOUNTER 2024-06-10 12:11 | Emergency (ER) | payer OTHER, MEDICARE, SELFPAY ==
[2024-06-10] VITALS (28 sets, daily range): BP systolic 100–143; BP diastolic 63–110; PULSE 71–82; RESP 7–33; TEMP 36.9; O2SAT 82–95; BMI 40.1
--- NOTE | 2024-06-10 12:16 | XRR_ITS ---
PROCEDURE INFORMATION: Exam: XR Chest Exam date and time: 06/10/2024 12:49 PM Age: 74 years old Clinical indication: Shortness of breath; Prior surgery; Surgery date: 6+ months; Surgery type: Open heart/bypass, patient HX: HX of melanoma; Additional info: SOB TECHNIQUE: Imaging protocol: Radiologic exam of the chest. Views: 1 view. COMPARISON: CT angio chest [id number] 04/09/2024 2:00 PM FINDINGS: Tubes, catheters and devices: Median sternotomy suture wires. Lungs: Unremarkable. No consolidation. Pleural spaces: Unremarkable. No pleural effusion. No pneumothorax. Heart/Mediastinum: See Vasculature finding. Vasculature: Mild cardiomegaly and uncoiling of the thoracic aorta. Bones/joints: Unremarkable. XR/XR chest 1V portable [id number] IMPRESSION: No acute findings.
--- NOTE | 2024-06-10 12:22 | ECG_ITS ---
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 Measurements Intervals [place] Rate: 76 P: 56 [place]: 243 QRS: -21 QRSD: 110 T: 66 QT: 395 QTc: 444 Interpretive Statements SINUS RHYTHM WITH FIRST DEGREE AV BLOCK INDETERMINATE AXIS LOW QRS VOLTAGE IN PRECORDIAL LEADS [QRS DEFLECTION < 1.0 mV IN CHEST LEADS] PATTERN CONSISTENT WITH PULMONARY DISEASE INFERIOR MYOCARDIAL INFARCTION , OF INDETERMINATE AGE [40+ ms Q WAVE AND/OR ST/T ABNORMALITY IN II/aVF] INTERPRETATION BASED ON A DEFAULT AGE OF 40 YEARS No previous ECG available for comparison Electronically Signed On 06-10-2024 13:57:41 CDT by Janneth Dia M.D. [id number] f
--- NOTE | 2024-06-10 13:05 | ED_ITS ---
HPI - SOB/Dyspnea 2 General: Chief Complaint: Shortness of Breath/Dyspnea Stated Complaint[facility], sob Time Seen by Provider: 06/10/24 13:00 Source: patient Mode of arrival: ambulatory Limitations: no limitations History of Present Illness: HPI Narrative: 74-year-old male [facility] he states he has been having increasing shortness of breath for the last month or 2. He states it is very exertional in nature he denies any chest pains. He denies any cough or fever denies any history of COPD or CHF. Patient was 84% here on room air currently on 3 L Associated symptoms: Deny abdominal pain, chest pain, fever(s), nausea or vomiting Related Data Home Medications Medication Instructions Recorded Confirmed aspirin 81 mg tablet,delayed 81 mg PO DAILY 07/13/21 06/10/24 release atenolol 100 mg tablet 50 mg PO DAILY 07/13/21 06/10/24 lisinopril 20 1 tab PO DAILY 07/13/21 06/10/24 mg-hydrochlorothiazide 25 mg tablet pregabalin 150 mg capsule 150 mg PO DAILY 07/13/21 06/10/24 sildenafil 50 mg tablet 50 mg PO DAILY PRN Sexual Activity 07/13/21 06/10/24 simvastatin 80 mg tablet 80 mg PO DAILY 07/13/21 06/10/24 tamsulosin 0.4 mg capsule 0.4 mg PO DAILY 07/13/21 06/10/24 alpha lipoic acid 600 mg capsule 600 mg PO BID 01/21/22 06/10/24 glipizide 5 mg tablet 5 mg PO BID 01/21/22 06/10/24 isosorbide mononitrate 60 mg 60 mg PO DAILY 01/21/22 06/10/24 tablet,extended release 24 hr fluticasone propionate 50 2 spray intranasal DAILY PRN 08/07/23 06/10/24 mcg/actuation nasal allergy symptoms spray,suspension (Allergy Relief (fluticasone)) doxepin 75 mg capsule 75 mg PO TID 04/07/24 06/10/24 ammonium lactate 12 % topical cream 1 applic topical BID PRN Dry Skin 06/10/24 06/10/24 furosemide 20 mg tablet (Lasix) 20 mg PO BID Edema 06/10/24 06/10/24 metformin 1,000 mg tablet 1,000 mg PO BID 06/10/24 06/10/24 mupirocin 2 % topical ointment 1 applic topical BID PRN Skin 06/10/24 06/10/24 Irritation pregabalin 200 mg capsule 200 mg PO BEDTIME 06/10/24 06/10/24 ranolazine 500 mg tablet,extended 500 mg PO BID 06/10/24 06/10/24 release,12 hr Previous Rx's Medication Instructions Recorded potassium chloride 10 mEq 10 meq PO DAILY #14 tabs 04/12/24 tablet,extended release Allergies Allergy/AdvReac Type Severity Reaction Status Date / Time No Known Allergies Allergy Verified 04/07/24 15:38 Review of Systems 2 Const: Denies: fever(s), chills, body aches or change in appetite ENMT: Denies: throat pain or dental pain Card: Denies: chest pain Resp: Reports: dyspnea GI: Denies: abdominal pain, nausea, vomiting or diarrhea Musc: Denies: neck pain or back pain Skin/Breast: Denies: rash Neuro: Denies: headache(s) PFSH ED 2 PFSH: Medical History History of nonmelanoma skin cancer History of malignant melanoma Atherosclerotic heart disease of [place] coronary artery with unspecified angina pectoris Benign prostatic hyperplasia with lower urinary tract symptoms Carpal tunnel syndrome Hypertension Hyperlipidemia Major depressive disorder Male erectile dysfunction Multiple nodules of lung PTSD (post-traumatic stress disorder) Type 2 diabetes mellitus Alcohol abuse Opioid abuse Malignant neoplasm of skin Thoracic aortic aneurysm without rupture Social History Smoking and tobacco/nicotine status: never used tobacco/nicotine Alcohol intake: former Physical Exam 2 Const: COMMON NORMALS: patient oriented x3 HENMT: COMMON NORMALS: normocephalic and atraumatic HEAD & SCALP: n ormocephalic and atraumatic Eye: COMMON NORMALS: Equal, round and reactive pupils present and EOMs intact bilaterally PUPIL: Yes Equal, round and reactive pupils present Neck/C-Spine: COMMON NORMALS: full ROM and supple Chest: COMMONS NORMALS: normal inspection of the chest and normal palpation of entire chest wall Resp: COMMON NORMALS: normal respiratory effort, No retractions, No use of accessory muscles and clear to auscultation bilaterally AUSCULTATION: clear to auscultation bilaterally Cardio: COMMON NORMALS: regular rate, regular rhythm and No murmurs present (Cardio) RATE: regular rate RHYTHM: regular rhythm Extremity: COMMON NORMALS: normal to inspection and full ROM Neuro: COMMON NORMALS: patient oriented x3, moves all extremities and no focal motor deficits Psych: COMMON NORMALS: mental status grossly normal, Normal thought process present and cooperative THOUGHT PROCESS: Normal thought process present Skin: COMMON NORMALS: no rashes or lesions noted and no wounds GENERAL SKIN EXAM: no rashes or lesions noted Course 2 Vital Signs: Vital signs: Vital Signs Temperature 98.4 F 06/10/24 12:18 Pulse Rate 76 06/10/24 15:50 Respiratory Rate 21 H 06/10/24 15:50 Blood Pressure 109/63 06/10/24 15:50 Pulse Oximetry 92 06/10/24 15:50 Oxygen Delivery Me thod Nasal Cannula 06/10/24 15:50 Oxygen Flow Rate 3 06/10/24 15:50 MDM - SOB/Dyspnea Medical Decision Making Patient presents for shortness of breath was hypoxic here as well. Dyspnea is been going on for quite some time he is had no worsening he denies any chest pain or cough chest x-ray showed no pneumonia as his D-dimer was negative no signs of PE is likely been chronically hypoxic. Did offer him admission he states that he wants to go home does not want to stay did set him up for home oxygen of 3 L [facility] worsening. Medical Records I reviewed the patient's medical records. Lab Data I reviewed the patient's lab results. 06/10/24 13:30 06/10/24 13:30 Labs/Radiology: Radiology Impressions Chest X-Ray 06/10/24 12:16 IMPRESSION: No acute findings. Laboratory Results WBC 8.24 10^3/uL (3.29-11.43) 06/10/24 13:30 RBC 5.59 10^6/uL (3.85-5.65) 06/10/24 13:30 Hgb 17.00 g/dL (11.27-16.99) H 06/10/24 13:30 Hct 47.9 % (37-53) 06/10/24 13:30 MCV 85.7 fl (82-101) 06/10/24 13:30 MCH 30.4 pg (27-33) 06/10/24 13:30 MCHC 35.5 g/dL (30-55) 06/10/24 13:30 RDW 13.2 % (12.1-15.1) 06/10/24 13:30 Plt Count 220 10^3/cmm (157-399) 06/10/24 13:30 MPV 9.9 fL (7.4-10.4) 06/10/24 13:30 Neut % (Auto) 53.8 % 06/10/24 13:30 Lymph % (Auto) 34.6 % 06/10/24 13:30 Morrill % (Auto) 8.4 % 06/10/24 13:30 Eos % (Auto) 2.3 % 06/10/24 13:30 Baso % (Auto) 0.7 % 06/10/24 13:30 Neut # (Auto) 4.43 10^3/uL (1.8-7.7) 06/10/24 13:30 Lymph # (Auto) 2.9 10^3/uL (0.8-4.8) 06/10/24 13:30 Morrill # (Auto) 0.7 10^3/uL (0.2-0.9) 06/10/24 13:30 Eos # (Auto) 0.2 10^3/uL (0.0-0.8) 06/10/24 13:30 Baso # (Auto) 0.1 10^3/uL (0.0-0.1) 06/10/24 13:30 Nucleated RBC % (auto) 0 % 06/10/24 13:30 Nucleated RBCs # 0.0 /100WBC 06/10/24 13:30 D-Dimer 0.39 ug/mLFEU (0-0.59) 06/10/24 13:30 Sodium 139 mmol/L (136-145) 06/10/24 13:30 Potassium 4.4 mmol/L (3.5-5.1) 06/10/24 13:30 Chloride 99 mmol/L (98-107) 06/10/24 13:30 Carbon Dioxide 28 mmol/L (22-29) 06/10/24 13:30 Anion Gap 16.4 (5-19) 06/10/24 13:30 BUN 17 mg/dL (8-23) 06/10/24 13:30 Creatinine 0.9 mg/dL (0.7-1.2) 06/10/24 13:30 GFR Calculation Not Reportable 06/10/24 13:30 Glucose 111 mg/dL (65-115) 06/10/24 13:30 Calculated Osmolality 290 mOsm/kg (285-295) 06/10/24 13:30 Calcium 8.8 mg/dL (8.5-10.5) 06/10/24 13:30 Total Bilirubin 0.5 mg/dL (0.15-1.2) 06/10/24 13:30 AST 16 U/L (0-40) 06/10/24 13:30 ALT 15 U/L (0-41) 06/10/24 13:30 Alkaline Phosphatase 110 U/L (40-130) 06/10/24 13:30 Troponin T Baseline 15 ng/L (0-15) 06/10/24 13:30 NT-Pro-B Natriuret Pep 250 pg/mL (0-125) H 06/10/24 13:30 Total Protein 6.6 g/dL (6.6-8.7) 06/10/24 13:30 Albumin 4.2 g/dL (3.5-5.2) 06/10/24 13:30 Globulin 2.4 g/dL (1.3-4.6) 06/10/24 13:30 Coronavirus (PCR) Negative (Negative) 06/10/24 13:40 Influenza A (PCR) Negative (Negative) 06/10/24 13:40 Influenza Type B (PCR) Negative (Negative) 06/10/24 13:40 RSV (PCR) Negative (Negative) 06/10/24 13:40 All radiology interpretation(s) finalized by discharge EKG Data EKG 1: I personally reviewed and interpreted this EKG as follows: EKG Interpretation Date: 06/10/24 EKG interpretation time: 12:22 Interpretation: nsr hr [address] elevation qrs 110 qtc 425 Discharge Plan Discharge Patient Disposition: Home Clinical Impression: Hypoxia Condition: Stable Prescriptions: No Action atenolol 100 mg tablet 50 mg PO DAILY lisinopril-hydrochlorothiazide 20-25 mg tablet 1 tab PO DAILY pregabalin 150 mg capsule 150 mg PO DAILY Rx Instructions: along with 200mg [id number] total simvastatin 80 mg tablet 80 mg PO DAILY aspirin 81 mg tablet,delayed release (DR/EC) 81 mg PO DAILY sildenafil 50 mg tablet 50 mg PO DAILY PRN (Reason: Sexual Activity) Rx Instructions: administer 30 minutes to 4 hours before activity tamsulosin 0.4 mg capsule 0.4 mg PO DAILY glipizide 5 mg tablet 5 mg PO BID doxepin 75 mg capsule 75 mg PO TID isosorbide mononitrate 60 mg tablet extended release 24 hr 60 mg PO DAILY alpha lipoic acid 600 mg capsule 600 mg PO BID fluticasone propionate [Allergy Relief (fluticasone)] 50 mcg/actuation spray,suspension 2 spray intranasal DAILY PRN (Reason: allergy symptoms) Rx Instructions: administer into each nostril potassium chloride 10 mEq tablet extended release 10 meq PO DAILY Qty: 14 0RF metformin 1,000 mg Tablet 1,000 mg PO BID pregabalin 200 mg capsule 200 mg PO BEDTIME Rx Instructions: along with 150mg [id number] total ranolazine 500 mg Tablet Extended Release 12 Hr 500 mg PO BID ammonium lactate 12 % cream 1 applic topical BID PRN (Reason: Dry Skin) mupirocin 2 % ointment 1 applic topical BID PRN (Reason: Skin Irritation) Lasix 20 mg tablet 20 mg PO BID Discharge Orders: Discharge ED (Routine); Ordered 06/10/24 Ordered By: Gustavo Prakash Other Ambulatory Orders: DME: Oxygen (Order) Location: None Selected Ordered By: Gustavo Prakash Referrals: Suzy Castaneda MD [Primary Care Provider] - Discharge Diet: Advance as tolerated Discharge Activity: Resume usual activity Patient Instructions: Hypoxia (ED) Coding Level of Care Code ED Otter Trawler Boatswain for Daniella Mosquera
--- NOTE | 2024-06-10 13:06 | ECG_ITS ---
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 Measurements Intervals [place] Rate: 72 P: 50 [place]: 248 QRS: -36 QRSD: 114 T: 65 QT: 404 QTc: 443 Interpretive Statements SINUS RHYTHM WITH FIRST DEGREE AV BLOCK LEFT AXIS DEVIATION [QRS AXIS < -30] PATTERN CONSISTENT WITH PULMONARY DISEASE INFERIOR MYOCARDIAL INFARCTION , OF INDETERMINATE AGE [40+ ms Q WAVE AND/OR ST/T ABNORMALITY IN II/aVF] Compared to ECG 06/10/2024 12:22:22 Left-axis deviation now present Indeterminate axis no longer present Myocardial infarct finding still present Electronically Signed On 06-10-2024 13:57:23 CDT by Janneth Dia M.D. [id number]
--- NOTE | 2024-06-10 13:46 | PC.PHAR ---
[facility] 06/10/24 1:45pm
[2024-06-10 13:52] LABS: Basophils # 0.1 10^3/uL (0.0-0.1); Basophils % 0.7 %; Eosinophils # 0.2 10^3/uL (0.0-0.8); Eosinophils % 2.3 %; Hematocrit 47.9 % (37-53); Lymphocytes # 2.9 10^3/uL (0.8-4.8); Lymphocytes % 34.6 %; Mean Corpuscular HGB Conc 35.5 g/dL (30-55); Mean Corpuscular Hemoglobin 30.4 pg (27-33); Mean Corpuscular Volume 85.7 fl (82-101); Mean Platelet Volume 9.9 fL (7.4-10.4); Monocytes # 0.7 10^3/uL (0.2-0.9); Monocytes % 8.4 %; Neutrophils # 4.43 10^3/uL (1.8-7.7); Neutrophils % 53.8 %; Nucleated Red Blood Cells % 0 %; Platelet Count 220 10^3/cmm (157-399); Red Blood Count 5.59 10^6/uL (3.85-5.65); Red Cell Distribution Width 13.2 % (12.1-15.1); White Blood Count 8.24 10^3/uL (3.29-11.43)
[2024-06-10 14:10] LABS: D Dimer 0.39 ug/mLFEU (0-0.59)
[2024-06-10 14:21] LABS: Troponin(5th) Baseline 15 ng/L (0-15)
[2024-06-10 14:33] LABS: Covid PCR NEGATIVE (Negative); Influenza A NEGATIVE (Negative); Influenza B NEGATIVE (Negative); Respiratory Syncytial Virus Ce NEGATIVE (Negative)
[2024-06-10 14:36] LABS: Alanine Aminotransferase 15 U/L (0-41); Albumin Level 4.2 g/dL (3.5-5.2); Alkaline Phosphatase 110 U/L (40-130); Aspartate Amino Transferase 16 U/L (0-40); Blood Urea Nitrogen 17 mg/dL (8-23); Calcium 8.8 mg/dL (8.5-10.5); Carbon Dioxide 28 mmol/L (22-29); Chloride 99 mmol/L (98-107); Creatinine Clr Calc Pharmacy 108.0746; Globulin 2.4 g/dL (1.3-4.6); Glucose 111 mg/dL (65-115); NT Pro B Type Natriuretic Pept 250 pg/mL (0-125); Osmolality Calculated 290 mOsm/kg (285-295); Sodium 139 mmol/L (136-145); Total Bilirubin 0.5 mg/dL (0.15-1.2); Total Protein 6.6 g/dL (6.6-8.7)
[2024-06-10 14:39] LABS: Anion Gap 16.4 (5-19); Potassium 4.4 mmol/L (3.5-5.1)
[2024-06-10] MEDS: dexamethasone 10 mg/mL INJ IVP (14:56)
== END 2024-06-10 16:00 | disposition home or self-care (01) ==
PROVIDERS: Emergency Provider Emergency Medicine; PCP Family Medicine
DX: R09.02 Hypoxemia (principal); Z79.82 Long term (current) use of aspirin; Z79.84 Long term (current) use of oral hypoglycemic drugs; I25.10 Atherosclerotic heart disease of native coronary artery without angina pectoris; I10 Essential (primary) hypertension; E78.5 Hyperlipidemia, unspecified; E11.9 Type 2 diabetes mellitus without complications
CPT/HCPCS: 0241U; 71045; 80053; 83880; 84484; 85025; 85378; 93005; 96374; 99285; J1100

== ENCOUNTER 2024-07-02 14:02 | Outpatient (CLI) | payer OTHER, SELFPAY ==
--- NOTE | 2024-07-02 14:07 | CTR_ITS ---
PROCEDURE INFORMATION: Exam: CT Chest With Contrast; Diagnostic Exam date and time: 07/02/2024 2:41 PM Age: 74 years old Clinical indication: Dyspnea; Prior surgery; Surgery date: 6+ months; Surgery type: --3x bypass, stents; Additional info: Dyspnea, no tobacco HX, lung scarring, hypoxia TECHNIQUE: Imaging protocol: Diagnostic computed tomography of the chest with contrast. Radiation optimization: All CT scans at this facility use at least one of these dose optimization techniques: automated exposure control; mA and/or kV adjustment per patient size (includes targeted exams where dose is matched to clinical indication); or iterative reconstruction. Contrast material: OMNI 350; Contrast volume: 95 ml; Contrast route: INTRAVENOUS (IV); COMPARISON: 1. CT angio chest [id number] 04/09/2024 2:[address] dated 07/21/2023. RADIATION DOSE METRICS: Total DLP (mGy-cm): 790.36 FINDINGS: Thyroid: The visualized thyroid gland is normal. Trachea: The central airways are patent. Lungs: Multiple stable bilateral subcentimeter nodules measuring up to 6 mm in the posterior aspect of the right upper lobe, stable dating back to 2022. Stable left lower lobe subpleural nodule with coarse central calcification, unchanged since 2022. Pleural spaces: No significant pleural effusion. No pneumothorax. Heart: The heart is enlarged. No pericardial effusion. Coronary arteries: Status post CABG. Cannot assess for patency of the graft in this non tailored examination. Severe coronary artery disease. Lymph nodes: No enlarged lymph nodes by size criteria. Vasculature: Stable mild aneurysmal dilation of the ascending aorta measuring up to 4.2 cm. The aorta demonstrates moderate atherosclerotic calcification. Bones/joints: Status post median sternotomy. The spine demonstrates mild degenerative changes at multiple levels. Soft tissues: Soft tissues are unremarkable as visualized. CT/CT chest w con* [id number] IMPRESSION: 1. No acute findings. 2. Stable mild aneurysmal dilation of the ascending aorta measuring up to 4.2 cm. 3. Multiple stable bilateral subcentimeter nodules measuring up to 6 mm in the posterior aspect of the right upper lobe, stable dating back to 2022. Consider CT follow-up in 1 year to document 2 year stability. 4. Stable left lower lobe pulmonary nodule with coarse central calcification.
[2024-07-02] MEDS: iohexol 350 mg/mL 500 mL Btl (per mL) IV (15:42)
== END 2024-07-02 14:03 | disposition home or self-care (01) ==
LOC: RAD 14:03
PROVIDERS: PCP Family Medicine; Visit Provider Family Medicine
DX: R91.8 Other nonspecific abnormal finding of lung field (principal)
CPT/HCPCS: 71260

== ENCOUNTER → 2024-07-29 10:46 | Outpatient (BNVA) | payer OTHER, SELFPAY | PROVIDERS: PCP Family Medicine; Referring Provider Family Medicine; Visit Provider Student in an Organized Health Care Education/Training Program | DX: Z12.11 Encounter for screening for malignant neoplasm of colon (principal); R03.0 Elevated blood-pressure reading, without diagnosis of hypertension | CPT/HCPCS: 99204 ==

== ENCOUNTER → 2024-08-03 10:48 | Outpatient (BNVA) | payer OTHER, SELFPAY | PROVIDERS: PCP Family Medicine; Visit Provider Podiatrist Foot & Ankle Surgery | DX: E11.42 Type 2 diabetes mellitus with diabetic polyneuropathy; R23.4 Changes in skin texture; M21.611 Bunion of right foot; M21.612 Bunion of left foot; Z79.84 Long term (current) use of oral hypoglycemic drugs | CPT/HCPCS: 99213 ==

== ENCOUNTER 2024-10-04 10:28 | Day surgery (SDC) | payer OTHER, SELFPAY ==
--- OUTSIDE RECORDS SUMMARY | 2024-07-29 16:01 | XMS_ITS | Patient Health Record ---
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 Name Role Phone Brant Oviedo MD Primary Care Provider Raymundo Todd Unavailable [phone] Reason For Referral Reason abdominal aortic ane urysm - attempted unsuccessfully to obtain previous imaging multiple times patient needs CTA abd/pelvis once [facility] auth received - faxed RFS on 11/14/23 refaxed [facility] on 01/28/24 Diagnosis 1 Abdominal aortic ane urysm (AAA) without rupture, unspecified part (I71.40) Referring Provider First Name [place] Christopher ff Referring Provider Last Name [place] Referring Provider [facility] Referred Organization [facility] Referred Provider Raymundo Anne Referred Address [address] [facility] [address], [place],[address], Referred Provider Specialty Vascular Arabella aj General Notes Danielle Carrasco 11/19/2022 11:09:00 AM >[facility] called to check status of authorization, Monster Taveras 11/27/2022 02:00:21 PM >[facility] CALLED TO CHECK STATUS, Ainsley Fisher 11/27/2022 03:00:38 PM >requested that images be sent by disk and a copy of the report by fax.Phillip Lisa 11/28/2022 04:20:07 PM >received Echo and stress test - need something showing aneurysm, Ainsley Fisher 12/05/2022 08:32:47 AM >called and left a message with [facility] to find out what testing the patient has recently had, DaniloDanielle 12/16/2022 08:21:30 AM >[facility] checking status of patient, Ainsley Fisher 12/17/2022 01:40:08 PM >bring patient in to see nachtigal with US, DaniloAnu huangsammy Xiao 12/18/2022 01:14:27 PM >Called patient to schedule appointment LVM, Danielle Carrasco 12/18/2022 04:13:57 PM >Appointment scheduled on 01.16 @ 2:45, Ainsley Fisher 02/24/2024 03:51:15 PM >Contact patient to see if he wishes to follow-up with a CTA, Ainsley Fisher 02/25/2024 02:46:28 PM >called and left a message to return call, Ainsley Fisher 02/26/2024 08:48:25 AM >patient returned call. He thinks that [facility] is [facility] to follow[facility] in [place] but isn't sure. He will call [facility] and try to find out something., Ainsley Fisher 03/12/2024 10:34:30 AM >per [facility] - seeing another vascular surgeon Referral Priority Routine Medications Medication SIG (Take, Route, Frequency, Duration) Notes Start Date End Date Status Tamsulosin HCl 0.4 MG 1 capsule Orally O nce a day Active Doxepin HCl 75 MG 1 capsule at bedtime Orally Once a day Active Aspirin Adult Low Dose 81 MG 1 tablet Orally Once a day Active Lyrica 300 MG 1 capsule in the john nathaniel 1 to 3 hours before bedtime Orally Once a day Active Simvastatin 40 MG 1 tablet in the even ing Orally Once a day Active Citalopram Hydrobromide 40 MG 0.5 tablet Orally Once a day Active glipiZIDE 5 MG 1 tablet 30 minutes before breakfast Orally twice daily Active metFORMIN HCl 1000 MG 1 tablet with a me al Orally twice a day Active Lisinopril-hydroCHLOROthiaz pao 20-25 MG 1 tablet Orally Once a day Active Isosorbide Mononitrate ER 60 MG 1 tablet in the morning Orally Once a day Active Social History Tobacco Use: Social History Observation Description Date Details (start date - stop date) Never Smoker NA - NA xTobacco Use/Smoking Question Answer Notes Are you a nonsmoker Plan Of Treatment Pending Test Test Name Order Date US Doppler Aorta, IVC, [id number] 01/16 US Doppler Aorta, IVC, [id number] 01/16 Future Test Test Name Order Date Blood Urea Nitrogen (BUN) [id number] 01/22/20 23 Creatinine (B) 45196 01/21/2023 CT Angio Abd/Pelvis w/con, incl noncontr ast [id number] 01/21/2023 Insurance Providers Payer Name Payer Address Payer Phone Subscriber Number Group Number Insured Name Patient Relationship to Insured Coverage Start Date Coverage End Date [employer] [address] [place] [phone] [id number] GREER CALIX Self - patient is the insured Medical (General) History Medical History History ICD Code CAD HTN DM hyper cholestrolemia Surgical History Surgery Date(Month/Year) CABG x #
[2024-10-04 11:12] VITALS: BP 125/86; PULSE 75; RESP 16; TEMP 36.3; O2SAT 93
--- NOTE | 2024-10-04 11:22 | ANES.PREANE2 ---
Pre-Anesthetic Assessment Height/Weight: Height 1.88 m Preop Diagnosis: screening Operation Date: 10/04/24 11:45 Proposed Procedures p COLONOSCOPY - 43484,G0121,Z12.11(Not Applicable) - Jacoby Charles MD Familial anesthetic complications: none Last intake: meal 10/02/23 clear- 1999 Social No alcohol and No tobacco Exam alert, oriented x 3, clear to auscultation bilaterally and regular rate & rhythm Airway Submandibular: within normal limits Cervical ROM: within normal limits Mallampati: Class II Comments: Comments: some missing teeth partial removed. Pulmonary Shortness of Breath (pulmonary nodules following diagnosis 15 years old.) supposed to wear oxygen patient wears PRN. 93% on room air. CV/HEM Stable Angina (reports improvement of cardiac symptoms.), Coronary Artery Disease, Hypertension and Myocardial Infarction 2010- CABG 04/2024 CONCLUSIONS Technically limited quality echocardiogram because of poor ultrasonic windows. LV systolic function is normal with EF of 50 to 55%. Trace mitral regurgitation Mild aortic regurgitation Accurate comparison with prior study is not possible because of limited visualization on prior study. None reported Hepatic None reported GI Gastroesophageal Reflux Disease Metabolic Diabetes Mellitus, Hyperlipidemia and Morbid Obesity Musc/skel cane use. Neuropsych Anxiety, Depression and Transient Ischemic Attack Anesthetic Plan ASA status: 4 Anesthesia: MAC Other: cardiac risk explained to patient. Medications/Allergies Home Medications Medication Instructions Recorded Confirmed Last Taken Type aspirin 81 mg tablet,delayed 81 mg PO DAILY 07/13/21 10/01/24 10/01/24 History release atenolol 100 mg tablet 50 mg PO DAILY 07/13/21 10/01/24 10/03/24 History lisinopril 20 1 tab PO DAILY 07/13/21 10/01/24 10/04/24 History mg-hydrochlorothiazide 25 mg tablet pregabalin 150 mg capsule 150 mg PO DAILY 07/13/21 10/01/24 10/01/24 History sildenafil 50 mg tablet 50 mg PO DAILY PRN Sexual Activity 07/13/21 10/01/24 10/01/24 History simvastatin 80 mg tablet 80 mg PO DAILY 07/13/21 10/01/24 10/01/24 History tamsulosin 0.4 mg capsule 0.4 mg PO DAILY 07/13/21 10/01/24 10/01/24 History alpha lipoic acid 600 mg capsule 600 mg PO BID 01/21/22 10/01/24 10/01/24 History glipizide 5 mg tablet 5 mg PO BID 01/21/22 10/01/24 10/01/24 History isosorbide mononitrate 60 mg 60 mg PO DAILY 01/21/22 10/01/24 10/04/24 History tablet,extended release 24 hr fluticasone propionate 50 2 spray intranasal DAILY PRN 08/07/23 10/01/24 10/01/24 History mcg/actuation nasal allergy symptoms spray,suspension (Allergy Relief (fluticasone)) doxepin 75 mg capsule 150 mg PO DAILY 04/07/24 10/01/24 10/01/24 History metformin 1,000 mg tablet 1,000 mg PO BID 06/10/24 10/01/24 10/01/24 History pregabalin 200 mg capsule 200 mg PO BEDTIME 06/10/24 10/01/24 10/01/24 History ranolazine 500 mg tablet,extended 500 mg PO BID 06/10/24 10/01/24 10/01/24 History release,12 hr bisacodyl 5 mg tablet,delayed 5 mg PO DAILY #4 tabs 07/29/24 10/01/24 10/01/24 Rx release (Dulcolax (bisacodyl)) magnesium citrate 300 ml PO DAILY PRN constipation 07/29/24 10/01/24 10/01/24 Rx #296 mL finasteride 5 mg tablet 5 mg PO DAILY 10/01/24 10/01/24 10/01/24 History Allergies Allergy/AdvReac Type Severity Reaction Status Date / Time No Known Allergies Allergy Verified 08/03/24 10:59 [facility] Anesthesia Medical History History of nonmelanoma skin cancer History of malignant melanoma Atherosclerotic heart disease of [place] coronary artery with unspecified angina pectoris Benign prostatic hyperplasia with lower urinary tract symptoms Carpal tunnel syndrome Hypertension Hyperlipidemia Major depressive disorder Male erectile dysfunction Multiple nodules of lung PTSD (post-traumatic stress disorder) Type 2 diabetes mellitus Alcohol abuse Opioid abuse Malignant neoplasm of skin Thoracic aortic aneurysm without rupture Social History Smoking and tobacco/nicotine status: never used tobacco/nicotine Alcohol intake: former Data Anesthesia Cardiac Studies: Echocardiogram 05/07/24 Sestamibi Stress Test (Cardiology) 03/01/22
[2024-10-04] MEDS: sodium chloride 0.9% 1,000 ML 30 ML IV (11:23)
[2024-10-04 11:28] LABS: Glucose Point of Care 137 mg/dL (70-110)
--- NOTE | 2024-10-04 11:30 | ANE.PACU2 ---
Inpatient post-anesthesia follow up: Airway intact: Yes Vital signs: Temperature 97.1 F Pulse Rate 68 Respiratory Rate 20 Blood Pressure 120/73 Pulse Oximetry 94 Oxygen Delivery Me thod Room Air Oxygen Flow Rate Fraction of Inspir ed Oxygen Hydration adequate: Yes Nausea and vomiting: No Pain level: 1 Mental status: Baseline
--- NOTE | 2024-10-04 11:38 | P.HP_ITS ---
Same Day Surgery H&P Indication for Procedure/HPI DATE OF PROCEDURE: October 04, 2024 CHIEF COMPLAINT/INDICATIONFOR SURGICAL PROCEDURE: changes in bowel habits PREOP DIAGNOSIS: changes in bowel habits PLANNED PROCEDURE: Operation Date: 10/04/24 11:45 Proposed Procedures p COLONOSCOPY - 06430,G0121,Z12.11(Not Applicable) - Jacoby Charles MD Medications/Allergies* Home Medications Medication Instructions Recorded Confirmed Type aspirin 81 mg tablet,delayed 81 mg PO DAILY 07/13/21 10/01/24 History release atenolol 100 mg tablet 50 mg PO DAILY 07/13/21 10/01/24 History lisinopril 20 1 tab PO DAILY 07/13/21 10/01/24 History mg-hydrochlorothiazide 25 mg tablet pregabalin 150 mg capsule 150 mg PO DAILY 07/13/21 10/01/24 History sildenafil 50 mg tablet 50 mg PO DAILY PRN Sexual Activity 07/13/21 10/01/24 History simvastatin 80 mg tablet 80 mg PO DAILY 07/13/21 10/01/24 History tamsulosin 0.4 mg capsule 0.4 mg PO DAILY 07/13/21 10/01/24 History alpha lipoic acid 600 mg capsule 600 mg PO BID 01/21/22 10/01/24 History glipizide 5 mg tablet 5 mg PO BID 01/21/22 10/01/24 History isosorbide mononitrate 60 mg 60 mg PO DAILY 01/21/22 10/01/24 History tablet,extended release 24 hr fluticasone propionate 50 2 spray intranasal DAILY PRN 08/07/23 10/01/24 History mcg/actuation nasal allergy symptoms spray,suspension (Allergy Relief (fluticasone)) doxepin 75 mg capsule 150 mg PO DAILY 04/07/24 10/01/24 History metformin 1,000 mg tablet 1,000 mg PO BID 06/10/24 10/01/24 History pregabalin 200 mg capsule 200 mg PO BEDTIME 06/10/24 10/01/24 History ranolazine 500 mg tablet,extended 500 mg PO BID 06/10/24 10/01/24 History release,12 hr finasteride 5 mg tablet 5 mg PO DAILY 10/01/24 10/01/24 History Allergies/Adverse Reactions Allergy/AdvReac Type Severity Reaction Status Date / Time No Known Allergies Allergy Verified 08/03/24 10:59 Current Medications: Generic Name Dose Route Start Last Admin Trade Name Perfectoq PRN Reason Stop Dose Admin Sodium Chloride 1,000 mls @ 30 mls/hr 10/04/24 11:00 10/04/24 11:23 Sodium Chloride 0.9% IV 30 mls/hr .Q24H [place] Administration Pertinent History/Comorbid Conditions* Medical History (Updated 06/10/24 @ 14:51 by Gustavo Prakash MD) History of nonmelanoma skin cancer History of malignant melanoma Atherosclerotic heart disease of [place] coronary artery with unspecified angina pectoris Benign prostatic hyperplasia with lower urinary tract symptoms Carpal tunnel syndrome Hypertension Hyperlipidemia Major depressive disorder Male erectile dysfunction Multiple nodules of lung PTSD (post-traumatic stress disorder) Type 2 diabetes mellitus Alcohol abuse Opioid abuse Malignant neoplasm of skin Thoracic aortic aneurysm without rupture Social History Smoking and tobacco/nicotine status: never used tobacco/nicotine Alcohol intake: former Pertinent Exam Findings alert, oriented x 3, clear to auscultation bilaterally, regular rate & rhythm a nd procedure specific exam findings abdomen soft, nt, nd Recommendations Surgery/Procedure today Coding Level of Care Code Acute Code for Chg Fwd
[2024-10-04 11:57] VITALS: BP 105/56; PULSE 67; RESP 20; TEMP 36.2; O2SAT 99
[2024-10-04 12:02] VITALS: BP 97/61; PULSE 66; RESP 20; O2SAT 92
[2024-10-04 12:12] VITALS: BP 107/67; PULSE 67; RESP 20; O2SAT 91
[2024-10-04 12:18] VITALS: BP 120/73; PULSE 68; RESP 20; O2SAT 94
== END 2024-10-04 12:30 | disposition home or self-care (01) ==
PROVIDERS: PCP Family Medicine; Visit Provider Student in an Organized Health Care Education/Training Program
PROC: 0DJD8ZZ Inspection of Lower Intestinal Tract, Via Natural or Artificial Opening Endoscopic (ICD-10-PCS; CPT 45330; principal; 2024-10-04 11:45)
DX: Z12.11 Encounter for screening for malignant neoplasm of colon (principal); E11.9 Type 2 diabetes mellitus without complications; E78.5 Hyperlipidemia, unspecified; E66.01 Morbid (severe) obesity due to excess calories; Z68.37 Body mass index [BMI] 37.0-37.9, adult; F41.9 Anxiety disorder, unspecified; F32.A Depression, unspecified; Z86.73 Personal history of transient ischemic attack (TIA), and cerebral infarction without residual deficits; Z79.82 Long term (current) use of aspirin; Z79.84 Long term (current) use of oral hypoglycemic drugs; I10 Essential (primary) hypertension
CPT/HCPCS: 36416; 45330; 82962; J2371; J2704; J3490; J7030

== ENCOUNTER → 2024-10-13 13:50 | Outpatient (BNVA) | payer OTHER, SELFPAY | PROVIDERS: PCP Family Medicine; Visit Provider Internal Medicine | DX: I25.10 Atherosclerotic heart disease of native coronary artery without angina pectoris (principal); R07.9 Chest pain, unspecified; I10 Essential (primary) hypertension; E78.5 Hyperlipidemia, unspecified | CPT/HCPCS: 99214 ==

== ENCOUNTER 2024-11-16 10:18 | Day surgery (SDC) | payer OTHER, SELFPAY ==
[2024-11-16 10:27] VITALS: BP 127/81; PULSE 73; RESP 18; TEMP 36.1; O2SAT 93
[2024-11-16] MEDS: sodium chloride 0.9% 500 ML 15 ML IV (10:52)
[2024-11-16 11:24] LABS: Glucose Point of Care 133 mg/dL (70-110)
--- NOTE | 2024-11-16 12:35 | ANES.PREANE2 ---
Pre-Anesthetic Assessment Height/Weight: Height 1.88 m Weight 131.542 kg Temp Pulse Resp BP Pulse Ox O2 Del Method 97.0 F L 73 18 127/81 93 Room Air 11/16/24 10:27 11/16/24 10:27 11/16/24 10:27 11/16/24 10:27 11/16/24 10:27 11/16/24 10:27 Operation Date: 11/16/24 11:45 Proposed Procedures p [id number], G0121, Z12.11(Not Applicable) - Jacoby Charles MD Familial anesthetic complications: none Was Beta Ariella taken within 24 hours: N/A Was Clonidine taken within 24 hours: N/A Last intake: Intake Last Liquid Date 11/15/24 Last Liquid Time 21:00 Last Solid Date 11/14/24 Last Solid Time 18:00 Social No alcohol and No tobacco Exam alert and oriented x 3 Airway Submandibular: within normal limits Cervical ROM: within normal limits Mallampati: Class I Dentition: full Pulmonary Shortness of Breath (pulmonary nodules following diagnosis 15 years old.) supposed to wear oxygen patient wears PRN. 91% on room air. CV/HEM Stable Angina (reports improvement of cardiac symptoms.), Coronary Artery Disease, Hypertension and Myocardial Infarction 2010- CABG 04/2024 CONCLUSIONS Technically limited quality echocardiogram because of poor ultrasonic windows. LV systolic function is normal with EF of 50 to 55%. Trace mitral regurgitation Mild aortic regurgitation Accurate comparison with prior study is not possible because of limited visualization on prior study. None reported Hepatic None reported Metabolic Diabetes Mellitus, Hyperlipidemia and Morbid Obesity Neuropsych Transient Ischemic Attack Anesthetic Plan ASA status: 4 Anesthesia: Anesthesia Evaluation and MAC Medications/Allergies Home Medications ?Medication ?Instructions ?Recorded ?Confirmed ?Last Taken ?Type aspirin 81 mg tablet,delayed 81 mg PO DAILY 07/13/21 11/11/24 11/11/24 History release atenolol 100 mg tablet 50 mg PO DAILY 07/13/21 11/11/24 11/16/24 History lisinopril 20 1 tab PO DAILY 07/13/21 11/11/24 11/15/24 History mg-hydrochlorothiazide 25 mg tablet pregabalin 150 mg capsule 150 mg PO BEDTIME 07/13/21 11/11/24 11/15/24 History sildenafil 50 mg tablet 50 mg PO DAILY PRN Sexual Activity 07/13/21 11/11/24 11/15/24 History simvastatin 80 mg tablet 80 mg PO DAILY 07/13/21 11/11/24 11/15/24 History tamsulosin 0.4 mg capsule 0.4 mg PO DAILY 07/13/21 11/11/24 11/15/24 History alpha lipoic acid 600 mg capsule 600 mg PO BID 01/21/22 11/11/24 11/15/24 History glipizide 5 mg tablet 5 mg PO BID 01/21/22 11/11/24 11/11/24 History isosorbide mononitrate 60 mg 60 mg PO DAILY 01/21/22 11/11/24 11/16/24 History tablet,extended release 24 hr fluticasone propionate 50 2 spray intranasal DAILY PRN 08/07/23 11/11/24 11/15/24 History mcg/actuation nasal allergy symptoms spray,suspension (Allergy Relief (fluticasone)) doxepin 75 mg capsule 150 mg PO DAILY 04/07/24 11/11/24 11/15/24 History metformin 1,000 mg tablet 1,000 mg PO BID 06/10/24 11/11/24 11/11/24 History pregabalin 200 mg capsule 200 mg PO BEDTIME 06/10/24 11/11/24 11/15/24 History ranolazine 500 mg tablet,extended 500 mg PO BID 06/10/24 11/11/24 11/15/24 History release,12 hr finasteride 5 mg tablet 5 mg PO DAILY 10/01/24 11/11/24 11/15/24 History Allergies Allergy/AdvReac Type Severity Reaction Status Date / Time No Known Allergies Allergy Verified 11/11/24 11:39 Current Medications Generic Name Dose Route Start Last Admin Trade Name Freq PRN Reason Stop Dose Admin Sodium Chloride 500 mls @ 15 mls/hr 11/16/24 10:24 11/16/24 10:52 Sodium Chloride 0.9% IV 11/17/24 10:23 15 mls/hr .Q24H PRN Administration COLONOSCOPY FLUIDS PFSH Anesthesia Medical History History of nonmelanoma skin cancer History of malignant melanoma Atherosclerotic heart disease of [place] coronary artery with unspecified angina pectoris Benign prostatic hyperplasia with lower urinary tract symptoms Carpal tunnel syndrome Hypertension Hyperlipidemia Major depressive disorder Male erectile dysfunction Multiple nodules of lung PTSD (post-traumatic stress disorder) Type 2 diabetes mellitus Alcohol abuse Opioid abuse Malignant neoplasm of skin Thoracic aortic aneurysm without rupture Social History Smoking and tobacco/nicotine status: never used tobacco/nicotine Alcohol intake: former Data Anesthesia Cardiac Studies: Echocardiogram 05/07/24 Sestamibi Stress Test (Cardiology) 03/01/22
--- NOTE | 2024-11-16 12:38 | W.PM.OPSFHP ---
Same Day Surgery H&P Indication for Procedure/HPI DATE OF PROCEDURE: November 16, 2024 CHIEF COMPLAINT/INDICATIONFOR SURGICAL PROCEDURE: screening colonoscopy PREOP DIAGNOSIS: screening colonoscopy PLANNED PROCEDURE: Operation Date: 11/16/24 11:45 Proposed Procedures p [id number], G0121, Z12.11(Not Applicable) - Jacoby Charles MD Medications/Allergies* Home Medications ?Medication ?Instructions ?Recorded ?Confirmed ?Type aspirin 81 mg tablet,delayed 81 mg PO DAILY 07/13/21 11/11/24 History release atenolol 100 mg tablet 50 mg PO DAILY 07/13/21 11/11/24 History lisinopril 20 1 tab PO DAILY 07/13/21 11/11/24 History mg-hydrochlorothiazide 25 mg tablet pregabalin 150 mg capsule 150 mg PO BEDTIME 07/13/21 11/11/24 History sildenafil 50 mg tablet 50 mg PO DAILY PRN Sexual Activity 07/13/21 11/11/24 History simvastatin 80 mg tablet 80 mg PO DAILY 07/13/21 11/11/24 History tamsulosin 0.4 mg capsule 0.4 mg PO DAILY 07/13/21 11/11/24 History alpha lipoic acid 600 mg capsule 600 mg PO BID 01/21/22 11/11/24 History glipizide 5 mg tablet 5 mg PO BID 01/21/22 11/11/24 History isosorbide mononitrate 60 mg 60 mg PO DAILY 01/21/22 11/11/24 History tablet,extended release 24 hr fluticasone propionate 50 2 spray intranasal DAILY PRN 08/07/23 11/11/24 History mcg/actuation nasal allergy symptoms spray,suspension (Allergy Relief (fluticasone)) doxepin 75 mg capsule 150 mg PO DAILY 04/07/24 11/11/24 History metformin 1,000 mg tablet 1,000 mg PO BID 06/10/24 11/11/24 History pregabalin 200 mg capsule 200 mg PO BEDTIME 06/10/24 11/11/24 History ranolazine 500 mg tablet,extended 500 mg PO BID 06/10/24 11/11/24 History release,12 hr finasteride 5 mg tablet 5 mg PO DAILY 10/01/24 11/11/24 History Allergies/Adverse Reactions Allergy/AdvReac Type Severity Reaction Status Date / Time No Known Allergies Allergy Verified 11/11/24 11:39 Current Medications: Generic Name Dose Route Start Last Admin Trade Name Freq PRN Reason Stop Dose Admin Sodium Chloride 500 mls @ 15 mls/hr 11/16/24 10:24 11/16/24 10:52 Sodium Chloride 0.9% IV 11/17/24 10:23 15 mls/hr .Q24H PRN Administration COLONOSCOPY FLUIDS Pertinent History/Comorbid Conditions* Medical History (Updated 06/10/24 @ 14:51 by Gustavo Prakash MD) History of nonmelanoma skin cancer History of malignant melanoma Atherosclerotic heart disease of [place] coronary artery with unspecified angina pectoris Benign prostatic hyperplasia with lower urinary tract symptoms Carpal tunnel syndrome Hypertension Hyperlipidemia Major depressive disorder Male erectile dysfunction Multiple nodules of lung PTSD (post-traumatic stress disorder) Type 2 diabetes mellitus Alcohol abuse Opioid abuse Malignant neoplasm of skin Thoracic aortic aneurysm without rupture Social History Smoking and tobacco/nicotine status: never used tobacco/nicotine Alcohol intake: former Pertinent Exam Findings alert, oriented x 3, clear to auscultation bilaterally, regular rate & rhythm and procedure specific exam findings abdomen soft, nt, nd Recommendations Surgery/Procedure today Coding Level of Care Code Acute Code for Chg Fwd
[2024-11-16 13:06] VITALS: BP 107/66; PULSE 82; RESP 18; TEMP 36.2; O2SAT 90
--- NOTE | 2024-11-16 13:09 | ANE.PACU2 ---
Inpatient post-anesthesia follow up: Airway intact: Yes Vital signs: Temperature 97.0 F Pulse Rate 73 Respiratory Rate 18 Blood Pressure 127/81 Pulse Oximetry 93 Oxygen Delivery Me thod Room Air Oxygen Flow Rate Fraction of Inspir ed Oxygen Hydration adequate: Yes Nausea and vomiting: No Pain level: 1 Mental status: Baseline
[2024-11-16 13:21] VITALS: BP 103/82; PULSE 76; RESP 18; O2SAT 91
== END 2024-11-16 13:43 | disposition home or self-care (01) ==
PROVIDERS: PCP Family Medicine; Visit Provider Student in an Organized Health Care Education/Training Program
PROC: 0DJD8ZZ Inspection of Lower Intestinal Tract, Via Natural or Artificial Opening Endoscopic (ICD-10-PCS; CPT 45378; principal; 2024-11-16 11:45)
DX: Z12.11 Encounter for screening for malignant neoplasm of colon (principal); I25.10 Atherosclerotic heart disease of native coronary artery without angina pectoris; I10 Essential (primary) hypertension; E78.5 Hyperlipidemia, unspecified; E11.9 Type 2 diabetes mellitus without complications; F32.9 Major depressive disorder, single episode, unspecified; Z79.82 Long term (current) use of aspirin; Z79.899 Other long term (current) drug therapy; Z79.84 Long term (current) use of oral hypoglycemic drugs; Z85.820 Personal history of malignant melanoma of skin
CPT/HCPCS: 36416; 45378; 82962; J2704; J7040

== ENCOUNTER → 2024-12-16 11:05 | Outpatient (BNVA) | payer OTHER, SELFPAY | PROVIDERS: PCP Family Medicine; Visit Provider Nurse Practitioner Family | DX: S80.921A Unspecified superficial injury of right lower leg, initial encounter (principal); X58.XXXA Exposure to other specified factors, initial encounter; L81.4 Other melanin hyperpigmentation; D22.5 Melanocytic nevi of trunk; L57.8 Other skin changes due to chronic exposure to nonionizing radiation; Z85.820 Personal history of malignant melanoma of skin; Z08 Encounter for follow-up examination after completed treatment for malignant neoplasm; Z85.828 Personal history of other malignant neoplasm of skin; D48.5 Neoplasm of uncertain behavior of skin; L57.0 Actinic keratosis | CPT/HCPCS: 11102; 17000; 99214 ==

== ENCOUNTER → 2025-04-07 13:56 | Outpatient (BNVA) | payer OTHER, SELFPAY | PROVIDERS: PCP Family Medicine; Visit Provider Podiatrist Foot & Ankle Surgery | DX: L97.513 Non-pressure chronic ulcer of other part of right foot with necrosis of muscle (principal) | CPT/HCPCS: 87070; 87075; 87205 ==

== ENCOUNTER 2025-04-07 14:17 | Outpatient (CLI) | payer OTHER, SELFPAY | END 2025-04-07 14:18 | disposition home or self-care (01) | LOC: SPT 14:19 | PROVIDERS: PCP Family Medicine; Visit Provider Podiatrist Foot & Ankle Surgery | DX: Z46.89 Encounter for fitting and adjustment of other specified devices (principal); L97.513 Non-pressure chronic ulcer of other part of right foot with necrosis of muscle | CPT/HCPCS: L4361 ==

== ENCOUNTER → 2025-04-18 11:10 | Outpatient (BNVA) | payer OTHER, SELFPAY | PROVIDERS: PCP Family Medicine; Visit Provider Podiatrist Foot & Ankle Surgery | DX: E11.621 Type 2 diabetes mellitus with foot ulcer (principal); L97.512 Non-pressure chronic ulcer of other part of right foot with fat layer exposed; E11.42 Type 2 diabetes mellitus with diabetic polyneuropathy; L03.115 Cellulitis of right lower limb; M20.21 Hallux rigidus, right foot; M21.611 Bunion of right foot; M21.612 Bunion of left foot; Z79.84 Long term (current) use of oral hypoglycemic drugs | CPT/HCPCS: 11042; 99214 ==

== ENCOUNTER → 2025-05-02 10:02 | Outpatient (BNVA) | payer OTHER, SELFPAY | PROVIDERS: PCP Family Medicine; Visit Provider Podiatrist Foot & Ankle Surgery | DX: E11.42 Type 2 diabetes mellitus with diabetic polyneuropathy (principal); M20.21 Hallux rigidus, right foot; M21.611 Bunion of right foot; M21.612 Bunion of left foot; Z79.84 Long term (current) use of oral hypoglycemic drugs | CPT/HCPCS: 99213 ==

== ENCOUNTER → 2025-05-17 13:29 | Outpatient (BNVA) | payer OTHER, SELFPAY | PROVIDERS: PCP Family Medicine; Visit Provider Internal Medicine | DX: I25.118 Atherosclerotic heart disease of native coronary artery with other forms of angina pectoris (principal); I10 Essential (primary) hypertension; E78.5 Hyperlipidemia, unspecified; Z79.82 Long term (current) use of aspirin | CPT/HCPCS: 99214 ==

== ENCOUNTER → 2025-05-25 13:52 | Outpatient (BNVA) | payer OTHER, SELFPAY | PROVIDERS: PCP Family Medicine; Visit Provider Podiatrist Foot & Ankle Surgery | DX: E11.621 Type 2 diabetes mellitus with foot ulcer (principal); L97.512 Non-pressure chronic ulcer of other part of right foot with fat layer exposed; E11.42 Type 2 diabetes mellitus with diabetic polyneuropathy; M20.21 Hallux rigidus, right foot; L03.115 Cellulitis of right lower limb; M21.612 Bunion of left foot; M21.611 Bunion of right foot; Z79.84 Long term (current) use of oral hypoglycemic drugs | CPT/HCPCS: 11042; 99214 ==

== ENCOUNTER 2025-05-31 09:23 | Outpatient (CLI) | payer OTHER, SELFPAY ==
--- NOTE | 2025-05-31 | ECG_ITS ---
[facility] Test Date: 2025-05-31 Pat Name: German Carreon Department: Room: Gender: Male Wind Development Director: : 1950 Requested By: Kamlesh Duckworth Order Number: [id number] Windy MD: Kamlesh Duckworth M.D. Interpretive Statements LEXISCAN: Procedure: At the baseline, the blood pressure was 123/79 mmHg with a heart rate of 66 bpm. The electrocardiogram showed normal sinus rhythm, incomplete right bundle branch block with normal ST and T's. The Lexiscan was infused over a period of 20 seconds. A total of 0.4 mg of Lexiscan was infused. The stress phase was continued for a total of 5 minutes. Heart rate was at the end of stress phase was 77 bpm and a blood pressure of 96/70 mmHg. The EKG at the peak infusion revealed normal sinus rhythm with no significant ST-T wave changes. Sestamibi was injected 20 seconds after the Lexiscan infusion. Blood pressure at the end of recovery phase was 103/59 mmHg with a heart rate of 76 bpm. Conclusion: 1. Normal EKG response to Lexiscan infusion 2. No Lexiscan induced chest pain or cardiac arrhythmia. 3. Normal blood pressure and heart rate response. 4. Sestamibi/sestamibi perfusion scan pending; see separate report. Electronically Signed On 06-08-2025 21:11:21 CDT by Kamlesh Duckworth M.D. [email or web address] [id number]
[2025-05-31 10:05] VITALS: BMI 38.5
--- NOTE | 2025-05-31 10:08 | NMCV_ITS ---
NM carolyne perf SPECT r/s* [id number] German Carreon Age: 75 Gender: M : 1950 Exam Date: 05/31/2025 10:49 Ordering Phys: Kamlesh Duckworth M.D ([email or web address]) Technologist: MAHI Daniel Exam Location: [facility] Indications: cp STRESS TEST [facility] IMAGE PROTOCOL Rest/Stress 1 Lexiscan Day Radiopharmaceutical Dose (mCi) Administration Site Administered by Rest: Tc-99m 10.5 IV MAHI Daniel Sestamibi Stress:Tc-99m 33 IV Rachana Burton, YARD JOCKEY Sestamibi Rest: 31-May-2025 60 Discovery 630 Stress: 31-May-2025 30 Discovery 630 0.4mg Lexiscan. Supine position only as patient was unable to lay prone. SPECT RESULTS Technical Quality: Good Raw Data Analysis: Normal Image Corrections: No attenuation or motion correction applied Summed Stress Score: 13 Summed Rest Score: 5 Summed Difference Score: 9 PERFUSION FINDINGS Large area of reversible perfusion defect seen in the anterior, anterolateral carrington. This is consistent with large area of ischemia seen in the LAD territory. Large area of partially reversible perfusion defect seen in the inferolateral and apical lateral carrington. This is consistent with large area of prior infarct with large area of jesica-infarct ischemis seen in the left circumflex artery territory. FUNCTIONAL RESULTS (calculated via Gated SPECT) Stress Image LV EF (%): 61 Stress EDV (mL):113 TID: 0.86 Stress ESV (mL):44 FUNCTIONAL FINDINGS: There is normal left ventricular systolic function. IMPRESSIONS 1. Abnormal myocardial perfusion imaging with large area of ischemia in the LAD territory. 2. Large area of prior infarct with large area of jesica-infarct ischemia seen in the left circumflex artery 3. LV systolic function is normal Kamlesh Duckworth MD (Electronically Signed) Final Date: 05 June 2025 00:58 S
[2025-05-31 11:37] VITALS: BP 103/59; PULSE 76
== END 2025-05-31 09:24 | disposition home or self-care (01) ==
PROVIDERS: PCP Family Medicine; Visit Provider Internal Medicine
DX: R07.9 Chest pain, unspecified (principal)
CPT/HCPCS: 36415; 78452; 93017; 96374; A9500; J2785

== ENCOUNTER → 2025-06-02 12:17 | Outpatient (BNVA) | payer OTHER, SELFPAY | PROVIDERS: PCP Family Medicine; Visit Provider Podiatrist Foot & Ankle Surgery | DX: E11.42 Type 2 diabetes mellitus with diabetic polyneuropathy (principal); M20.21 Hallux rigidus, right foot; E11.621 Type 2 diabetes mellitus with foot ulcer; L97.512 Non-pressure chronic ulcer of other part of right foot with fat layer exposed; L03.115 Cellulitis of right lower limb; M21.611 Bunion of right foot; M21.612 Bunion of left foot; Z79.84 Long term (current) use of oral hypoglycemic drugs | CPT/HCPCS: 99213 ==

== ENCOUNTER 2025-06-24 08:33 | Outpatient (CLI) | payer OTHER, SELFPAY ==
[2025-06-24] VITALS (28 sets, daily range): BP systolic 102–140; BP diastolic 62–92; PULSE 70–83; RESP 15–27; TEMP 36.4–36.8; O2SAT 89–96; BMI 38.5; BMI 40.4
--- NOTE | 2025-06-24 09:00 | XACV_ITS ---
Exam Room: 2 Ht: 188 cm Wt: 136 kg BSA: 2.72 m2 Gender: Male : 1950 Any Known Allergies: No known allergies Exam Priority: Routine Procedure(s): Procedure Description: Diagnostic procedure Procedure Description: PCI procedure Procedure Description: Venous Graft Catheterization Procedure Description: ANSARI Graft Catheterization Procedure Description: Drug Eluting Coronary Stent Procedure Description: PTCA Procedure Description: Miscellaneous Procedure Description: Angio-Seal Procedure Description: ACT Procedure Description: Coronary Angiography Diagnostic Cath Status: Elective Diagnostic Findings * INDICATION: Worsening angina/ abnormal stress test. * Left Main has moderate to severe disease. * Proximal Left Anterior Descending: chronic total occlusion, RAYNA: 0 flow. * Proximal Right Coronary Artery: chronic total occlusion, RAYNA: 0 flow. * Proximal Circumflex: chronic total occlusion, RAYNA: 0 flow. * Bypass grafts: ANSARI to LAD is patent. However after touchdown, LAD is subtotally to totally occluded. SVG to RCA has critical 99% mid graft stenosis. SVG to OM has severe 70-80% stenosis. . * Coronary angiography shows right dominance. PCI Status: Elective Interventional Findings * Procedure detail: We engaged SVG to RCA with JR4 guide catheter. We placed 3.0 x 22 mm resolute [place] drug-eluting stent in mid SVG graft. Postdilated the stent with 3.25 x 15 mm NC balloon at high pressure. At this time final angiogram showed excellent stent expansion and no residual stenosis. Guidewire and guide catheter were removed. We used AL-1 guide catheter to engage SVG to OM. We tried to advance a stent however because of degree of stenosis and lack of guide support could not be advanced. We used guide liner and predilated the stenosis with 3.2 515 mm NC balloon. This was followed by placement of a 4.0 x 15 mm resolute [place] drug-eluting stent. At this time final angiogram was performed that showed excellent stent, no residual stenosis and RAYNA 3 flow. Guidewire and guide catheter were removed. Patient left the test lab technician in a stable condition. . Conclusions 1. Severe SVG to OM stenosis s/p PCI with 1 stent. Severe mid SVG to RCA stenosis s/p PCI with 1 stent. 2. Patient has prior CABG. Recommendations * Dual antiplatelet therapy with aspirin and plavix. * High intensity statin therapy. * Outpatient cardiology follow up in 2 weeks. Interventional RX Recommendation: PCI w/o planned CABG Diagnostic RX Recommendation: PCI w/o planned CABG Anticoagulation: Heparin Pressures Phase:Rest AO : 106 / 81 ( 93 ) @ 11:42:00 AM 109 / 85 ( 98 ) @ 11:58:00 AM 101 / 75 ( 88 ) @ 12:11:00 PM Clinical Evaluation EBL: 5mL-10mL Procedural Details Procedure Consent Obtained. Pre-Procedure Time Out. Identified patient by full name and date of as verbalized by the patient/guarantor. Does the consent match the physician's order: Yes. Accurate & Complete Informed Consent: Yes. Inpatient/Outpatient History & Physical on Chart: Yes. If H&P is completed, is and addenduem needed: No. Visualize and Verify Site with Patient/Guarantor: N/A. Relevant Radiology Images available: Yes. The risks, benefits, and alternatives of sedation and/or procedure were discussed by physician. The patient agrees to continue. Procedure started. [facility] Clinical Fraility Score: 3: Managing Well. [place] Worker Indications: Suspected CAD/Abnormal stress test. Chest Pain Symptom Assessment: Typical Angina Symptoms. Cardiovascular Instability: No. Correct patient, site and procedure confirmed by cath team. PERRLA. Strong, equal hand coffin maker bilaterally. Lungs clear x 5 lobes. IV Site on Arrival: 20 gauge in the right wrist. IV Fluids: 0.9% NaCl at KVO. 0 mL infused prior to test lab technician. Pre Procedural Pulses: right dorsalis pedis was 3+. Pre Procedural Pulses: left dorsalis pedis was 1+. Pre Procedural Pulses: right posterior tibial was 2+. Pre Procedural Pulses: left posterior tibial was 1+. Pre Procedural Pulses: bilateral radial was 3+. Oxygen started at 4liters/min via nasal canula. bilateral groins was prepped with chloroprep then draped in the usual sterile fashion. Physician notified. Baseline sample Acquired. HR: 77 BPM. Patient's family is in CPRU room #4. Dr. Duckworth will update at the completion of the procedure. Equipment: 6F - Femoral. Cardiac Cath Pack. ACIST Manifold Kit Model BT 2000. Heparinized Saline (2 units/mL), 1000 mL bag. Kit, Micropuncture. Physician arrived. Physician scrubbed in. Immediate Pre-Procedure Time Out. Correct Patient: Yes; Correct Procedure: Yes; Correct Site: Yes; Correct Patient Position: Yes; Correct Supplies: Yes; Dried Flammable Prep: Yes; Blood Products Available: N/A;. Lidocaine 1% infiltrated to the right groin. Arterial access obtained with micropuncture set. A 5 [place] JL4 catheter in over the exchange J wire. Multiple views taken of left coronary artery. Catheter removed over the standard J wire. A 5 [place]oc[place] JR4 catheter in over the standard J wire. Catheter redirected to the SVG --> RCA. SVG's to RCA visualized. Catheter removed over the standard J wire. A 5 moroccan JR4 catheter in over wire. ANSARI to LAD visualized. Catheter removed over the standard J wire. A 5 moroc[place] AL1 catheter in over the standard J wire. SVG's to OM visualized. Catheter removed over the standard J wire. PCI Indication: CAD (without ischemic symptoms). 6 moroccan JR 4 guide catheter was inserted over the standard J wire. Runthrough guidewire was advanced through the guide catheter to lesion in the SVG-->mid RCA. Inflation Number : 1 A MDT R TARA 3.0X22 WERO -Lot Number# [id number] Exp. was prepped and advanced across the Aorta Right -> Mid RCA. The stent was deployed at 14 ANASTASIA for 0:18 seconds. Stent balloon out over wire. Inflation number : 2 A MDT NC EUPHORA RX [id number] BALLOON was prepped and advanced across the Aorta Right -> Mid RCA , then inflated to 16 ANASTASIA for 0:16 seconds. Balloon out. Wire out. Guide catheter out over the standard J wire. 6 moroccan AL I guide catheter was inserted over the standard J wire. Runthrough guidewire was advanced through the guide catheter to lesion in the SVG --> OM. TARA 4.0mm x 15mm stent in. Unable to cross, removed intact. MDT NC [place] 3.25mm x 15mm balloon in, unable to cross, removed. Guideliner in OTW. Inflation number: 1 The MDT NC EUPHORA RX [id number] BALLOON was reinflated across the Aorta Right -> 1st Ob [place], to 12 ANASTASIA for 0:12 seconds. Balloon out. Inflation Number : 1 A MDT R TARA 4.0X15 WERO -Lot Number# [id number] Exp. was prepped and advanced across the Aorta Right -> 1st Ob [place]. The stent was deployed at 12 ANASTASIA for 0:15 seconds. Stent balloon out over wire. Guideliner out OTW. Results checked. Wire out. ACT drawn. Results out of range HI. Guide catheter out over the standard J wire. A Right femoral angiogram was performed to determine safe placement of closure device. A Angio-Seal VIP ([place]) was successful obtaining hemostatsis at the Right Femoral artery insertion site. Lidocaine 1% infiltrated to the right groin. Angioseal placed without complications. No signs or symptoms of hematoma noted. Sterile dressing applied per usual sterile fashion. Lot # [id number] Exp. . Post Procedure: Pulses reassessed and unchanged. PERRLA. Strong, equal hand coffin maker bilaterally. No VTE prophylaxis required. Medication's Wasted: Heparin = 3000 units. Total IV fluids: 85 mL. Post-op diagnosis: WERO x 1 to SVG --> Mid RCA/WERO x 1 to SCG --> OM. Complications: none. Estimated blood loss: 5mL-10mL. Responsiveness - Normal response to verbal stimuli; alert and oriented, PERRLA. Airway - Unaffected, no intervention required; spontaneous ventilation. Circulation: W/N/L, pulses unchanged. Nausea/Vomiting: No. Vital chart was stopped. Procedure completed. Patient transferred by bed to CPRU. Access Site Site: Right Femoral artery Sheath Size: 6 Fr Hemostasis Method: Angio-Seal VIP ([facility]) Hemostasis Success: Successful Procedure Medications Start: 10:34 AM Stop: 10:34 AM Medication: Versed Amount: 2 mg Route: I.V. Start: 10:36 AM Stop: 10:36 AM Medication: Versed Amount: 1 mg Route: I.V. Start: 10:37 AM Stop: 10:37 AM Medication: Versed Amount: 1 mg Route: I.V. Start: 10:56 AM Stop: 10:56 AM Medication: Heparin Amount: 04450 units Route: I.V. Start: 11:01 AM Stop: 11:01 AM Medication: Versed Amount: 1 mg Route: I.V. Start: 11:04 AM Stop: 11:04 AM Medication: Heparin Amount: 1000 units Route: I.V. Start: 11:15 AM Stop: 11:15 AM Medication: Heparin Amount: 1000 units Route: I.V. Start: 11: AM Stop: : AM Medication: Versed Amount: 1 mg Route: I.V. Start: 11: AM Stop: : AM Medication: Heparin Amount: 1000 units Route: I.V. Start: 11:45 AM Stop: 11:45 AM Medication: Plavix Amount: 600 mg Route: P.O. I, the attending physician, have reviewed and verified all procedure medications. Yes, all medications given per verbal order History/Risk Factors Hypertension: Yes Dyslipidemia: Yes Peripheral Arterial Disease (PAD): No Myocardial Infarction ([place]): No Obesity: Yes Renal Disease: No Tobacco Use: Never Prior Interventions PCI: No CABG: Yes Valve Surgery: No Report Signatures Finalized by Kamlesh Duckworth MD on 06/26/2025 11:56 AM
[2025-06-24 09:16] LABS: Hematocrit 49.7 % (37-53); Hemoglobin 17.30 g/dL (11.27-16.99); Mean Corpuscular HGB Conc 34.8 g/dL (30-55); Mean Corpuscular Hemoglobin 31.1 pg (27-33); Mean Corpuscular Volume 89.4 fl (82-101); Nucleated Red Blood Cells % 0 %; Platelet Count 217 10^3/cmm (157-399); Red Blood Count 5.56 10^6/uL (3.85-5.65); White Blood Count 8.63 10^3/uL (3.29-11.43)
[2025-06-24 09:35] LABS: Anion Gap 17.3 (5-19); Blood Urea Nitrogen 13 mg/dL (8-23); Calcium 9.0 mg/dL (8.5-10.5); Carbon Dioxide 27 mmol/L (22-29); Chloride 99 mmol/L (98-107); Glucose 134 mg/dL (65-115); Osmolality Calculated 290 mOsm/kg (285-295); Potassium 4.3 mmol/L (3.5-5.1); Sodium 139 mmol/L (136-145)
--- NOTE | 2025-06-24 10:13 | W.PM.OPSFHP ---
Same Day Surgery H&P Indication for Procedure/HPI DATE OF PROCEDURE: June 24, 2025 CHIEF COMPLAINT/INDICATIONFOR SURGICAL PROCEDURE: Worsening angina/abnormal stress test PREOP DIAGNOSIS: Worsening angina/abnormal stress test PLANNED PROCEDURE: Operation Date: 06/24/25 10:00 Proposed Procedures p Cardiac Catheterization - [facility] w/wo lv & coros(Left) - Kamlesh Duckworth M.D Possible percutaneous coronary intervention 75 year old man with PMH of CAD and CABG in 2010. He has been having worsening angina and dyspnea on exertion. Had stress test that is abnormal. Plan for coronary angiogram with possible PCI Medications/Allergies* Home Medications ?Medication ?Instructions ?Recorded ?Confirmed ?Type aspirin 81 mg tablet,delayed 81 mg PO DAILY 07/13/21 06/23/25 History release atenolol 100 mg tablet 50 mg PO DAILY 07/13/21 06/23/25 History lisinopril 20 1 tab PO DAILY 07/13/21 06/23/25 History mg-hydrochlorothiazide 25 mg tablet pregabalin 150 mg capsule 150 mg PO BEDTIME 07/13/21 06/23/25 History simvastatin 80 mg tablet 80 mg PO DAILY 07/13/21 06/23/25 History tamsulosin 0.4 mg capsule 0.4 mg PO DAILY 07/13/21 06/23/25 History alpha lipoic acid 600 mg capsule 600 mg PO BID 01/21/22 06/23/25 History glipizide 5 mg tablet 5 mg PO BID 01/21/22 06/23/25 History isosorbide mononitrate 60 mg 60 mg PO DAILY 01/21/22 06/23/25 History tablet,extended release 24 hr fluticasone propionate 50 2 spray intranasal DAILY PRN 08/07/23 06/23/25 History mcg/actuation nasal allergy symptoms spray,suspension (Allergy Relief (fluticasone)) doxepin 75 mg capsule 150 mg PO DAILY 04/07/24 06/23/25 History metformin 1,000 mg tablet 1,000 mg PO BID 06/10/24 06/23/25 History pregabalin 200 mg capsule 200 mg PO BEDTIME 06/10/24 06/23/25 History ranolazine 500 mg tablet,extended 500 mg PO BID 06/10/24 06/23/25 History release,12 hr finasteride 5 mg tablet 5 mg PO DAILY 10/01/24 06/23/25 History Allergies/Adverse Reactions Allergy/AdvReac Type Severity Reaction Status Date / Time No Known Allergies Allergy Verified 06/02/25 12:41 Current Medications: Generic Name Dose Route Start Last Admin Trade Name Car PRN Reason Stop Dose Admin Sodium Chloride 1,000 mls @ 50 mls/hr 06/24/25 09:00 06/24/25 09:32 Sodium Chloride 0.9% IV 06/25/25 04:59 Not Given .Q20H ONE Pertinent History/Comorbid Conditions* Medical History (Updated 04/22/25 @ 15:14 by Dao Barnes DPM) History of nonmelanoma skin cancer History of malignant melanoma Atherosclerotic heart disease of [place] coronary artery with unspecified angina pectoris Benign prostatic hyperplasia with lower urinary tract symptoms Carpal tunnel syndrome Hypertension Hyperlipidemia Major depressive disorder Male erectile dysfunction Multiple nodules of lung PTSD (post-traumatic stress disorder) Type 2 diabetes mellitus Alcohol abuse Opioid abuse Malignant neoplasm of skin Thoracic aortic aneurysm without rupture Social History Smoking and tobacco/nicotine status: never used tobacco/nicotine Alcohol intake: former Pertinent Exam Findings alert, oriented x 3, clear to auscultation bilaterally and regular rate & rhythm Conscious Sedation Assessment PATIENT ASSESSED PRIOR TO SEDATION, WITH NO CHANGE NOTED: Yes AIRWAY EVAL/ANESTHESIA PLAN: normal airway, ASA III, Monitored Anesthesia and Local Anesthesia ADDITIONAL INFORMATION: Moderate sedation Recommendations Risks and benefits of procedure reviewed and Patient/family agree to proceed Surgery/Procedure today (Left heart cath with possible PCI) Coding Level of Care Code Acute Code for Daniella Fwreynaldo
--- NOTE | 2025-06-24 11:55 | PM.PROC ---
Procedure Note: Date of procedure: 06/24/25 Pre-procedure diagnosis: Worsening angina/ abnormal stress test Post-procedure diagnosis: other (Severe SVG to OM stenosis s/p PCI with 1 stent. Severe SVG to RCA stenosis s/p PCI with 1 stent) Procedure: ANSARI to LAD is patent however [place] LAD is a almost totally occluded with atretic vessel. SVG to RCA has critical 99% mid vessel stenosis post PCI with 1 stent. SVG to OM has severe 80 to 90% stenosis status post PCI with 1 stent. [place] coronary arteries are all occluded. Dual antiplatelet therapy with aspirin and plavix for atleast 1 year High intensity statin therapy Outpatient cardiology follow up in 2 weeks Performing Provider: Kamlesh Duckworth Estimated blood loss (mL): 10 Complications: None Condition: stable Disposition: floor Coding Level of Care Code Acute Code for Chg Fwreynaldo
--- NOTE | 2025-06-24 14:54 | PC.NURSE ---
received from cardiac feed mill lab technician via stretcher in to room 108,at 1420.report received.pt is alert and awake and oriented x 4.denies pain at present.sr on monitor.right femoral cath site with dressing dry and intact .no hematoma noted.(sheath site had been closed with angioseal in feed mill lab technician).right leg is warm to touch and with brisk capillary refill.palpable dp pulse noted.pt instructed in activity restrictions s/p femoral artery procedure...and instructed to notify staff for any bleeding,pain,sob,or for any concerns at all.pt verb understanding of instructions
[2025-06-24] MEDS: FLU VACC TS2025-26(6MOS UP)/PF 45 MCG/0.5 ML SYRINGE IM (16:19)
[2025-06-25] VITALS: BP 143/97; PULSE 72; RESP 19; TEMP 36.9; O2SAT 97
[2025-06-25 03:29] VITALS: BP 144/86; PULSE 84; RESP 21; TEMP 36.6; O2SAT 94
[2025-06-25 04:22] LABS: Hematocrit 47.7 % (37-53); Hemoglobin 15.90 g/dL (11.27-16.99); Mean Corpuscular HGB Conc 33.3 g/dL (30-55); Mean Corpuscular Hemoglobin 30.5 pg (27-33); Mean Corpuscular Volume 91.4 fl (82-101); Nucleated Red Blood Cells % 0 %; Platelet Count 159 10^3/cmm (157-399); Red Blood Count 5.22 10^6/uL (3.85-5.65); White Blood Count 7.07 10^3/uL (3.29-11.43)
[2025-06-25 04:32] LABS: Anion Gap 12.1 (5-19); Blood Urea Nitrogen 12 mg/dL (8-23); Calcium 8.7 mg/dL (8.5-10.5); Carbon Dioxide 30 mmol/L (22-29); Chloride 100 mmol/L (98-107); Creatinine Clr Calc Pharmacy 105.8549; Glucose 171 mg/dL (65-115); Osmolality Calculated 290 mOsm/kg (285-295); Potassium 4.1 mmol/L (3.5-5.1); Sodium 138 mmol/L (136-145)
[2025-06-25 06:00] VITALS: PULSE 75
--- NOTE | 2025-06-25 08:57 | P.DS_ITS ---
Discharge Providers Date of Admission: 06/24/2025 Date of Discharge: June 25, 2025 Attending Provider at Admission: Kamlesh Duckworth MD Attending Provider at Discharge: Kamlesh Duckworth M.D Primary Care Provider: Hoa Villeda MD Reason for Visit Reason for Visit: R94.39 Brief History: 75 year old man with PMH of CAD and CABG in 2010. He has been having worsening angina and dyspnea on exertion. Had stress test that is abnormal. Plan for coronary angiogram with possible PCI Hospital Course Hospital Course Patient had successful revascularization of SVG graft to RCA with 1 stent and SVG graft to OM with 1 stent. Stayed stable overnight and discharged home in a stable condition on dual antiplatelet agents. Physical Exam Narrative: GENERAL: Patient is alert, awake and oriented x3. HEART: Regular S1 and S2. No murmur, rub or gallop. LUNGS: Clear to auscultate bilaterally. CENTRAL NERVOUS SYSTEM: Grossly nonfocal. EXTREMITIES: Lower extremities with out edema bilaterally. Discharge Data Studies Completed and Pending Pending at discharge Category Date Time Status [place] [place] request for service Routine Exams 06/24/25 09:00 Taken Laboratory Results WBC 7.07 10^3/uL (3.29-11.43) 06/25/25 03:38 RBC 5.22 10^6/uL (3.85-5.65) 06/25/25 03:38 Hgb 15.90 g/dL (11.27-16.99) 06/25/25 03:38 Hct 47.7 % (37-53) 06/25/25 03:38 MCV 91.4 fl (82-101) 06/25/25 03:38 MCH 30.5 pg (27-33) 06/25/25 03:38 MCHC 33.3 g/dL (30-55) 06/25/25 03:38 RDW 12.8 % (12.1-15.1) 06/25/25 03:38 Plt Count 159 10^3/cmm (157-399) 06/25/25 03:38 MPV 10.0 fL (7.4-10.4) 06/25/25 03:38 Neut % (Auto) 59.7 % 06/25/25 03:38 Lymph % (Auto) 26.0 % 06/25/25 03:38 Rooks % (Auto) 8.1 % 06/25/25 03:38 Eos % (Auto) 5.2 % 06/25/25 03:38 Baso % (Auto) 0.7 % 06/25/25 03:38 Neut # (Auto) 4.22 10^3/uL (1.8-7.7) 06/25/25 03:38 Lymph # (Auto) 1.8 10^3/uL (0.8-4.8) 06/25/25 03:38 Rooks # (Auto) 0.6 10^3/uL (0.2-0.9) 06/25/25 03:38 Eos # (Auto) 0.4 10^3/uL (0.0-0.8) 06/25/25 03:38 Baso # (Auto) 0.1 10^3/uL (0.0-0.1) 06/25/25 03:38 Nucleated RBC % (auto) 0 % 06/25/25 03:38 Nucleated RBCs # 0.0 /100WBC 06/25/25 03:38 Sodium 138 mmol/L (136-145) 06/25/25 03:38 Potassium 4.1 mmol/L (3.5-5.1) 06/25/25 03:38 Chloride 100 mmol/L (98-107) 06/25/25 03:38 Carbon Dioxide 30 mmol/L (22-29) H 06/25/25 03:38 Anion Gap 12.1 (5-19) 06/25/25 03:38 BUN 12 mg/dL (8-23) 06/25/25 03:38 Creatinine 0.9 mg/dL (0.7-1.2) 06/25/25 03:38 GFR Calculation Not Reportable 06/25/25 03:38 Glucose 171 mg/dL (65-115) H 06/25/25 03:38 POC Glucose 172 mg/dL (70-110) H 06/25/25 06:25 Calculated Osmolality 290 mOsm/kg (285-295) 06/25/25 03:38 Calcium 8.7 mg/dL (8.5-10.5) 06/25/25 03:38 Vitals Last Vital Signs Temp 97.9 F 06/25/25 03:29 Pulse 75 06/25/25 06:00 Resp 21 H 06/25/25 03:29 BP 144/86 06/25/25 03:29 Pulse Ox 94 06/25/25 03:29 O2 Del Method Nasal Cannula 06/25/25 03:29 O2 Flow Rate 3 06/24/25 13:45 Discharge Plan Discharge Patient Disposition: Home Prescriptions: New clopidogrel 75 mg tablet 75 mg PO DAILY Qty: 90 3RF Continued atenolol 100 mg tablet 50 mg PO DAILY lisinopril-hydrochlorothiazide 20-25 mg tablet 1 tab PO DAILY pregabalin 150 mg capsule 150 mg PO BEDTIME Rx Instructions: along with 200mg [id number] total simvastatin 80 mg tablet 80 mg PO DAILY aspirin 81 mg tablet,delayed release (DR/EC) 81 mg PO DAILY tamsulosin 0.4 mg capsule 0.4 mg PO DAILY glipizide 5 mg tablet 5 mg PO BID doxepin 75 mg capsule 150 mg PO DAILY isosorbide mononitrate 60 mg tablet extended release 24 hr 60 mg PO DAILY alpha lipoic acid 600 mg capsule 600 mg PO BID fluticasone propionate [Allergy Relief (fluticasone)] 50 mcg/actuation spray,suspension 2 spray intranasal DAILY PRN (Reason: allergy symptoms) Rx Instructions: administer into each nostril (DME) 1 pair Diabetic tosin- A5500 See Rx Instructions .Route .MEDSUPPLY Qty: 1 0RF Rx Instructions: As directed (DME) SANJEEV dillon See Rx Instructions .Route .MEDSUPPLY Qty: 1 0RF Rx Instructions: As directed (DME) custom orthotic inserts [id number] See Rx Instructions .Route .MEDSUPPLY Qty: 2 0RF Rx Instructions: As directed by Georgina Sarabia's extension pregabalin 200 mg capsule 200 mg PO BEDTIME Rx Instructions: along with 150mg on=178tk total ranolazine 500 mg Tablet Extended Release 12 Hr 500 mg PO BID finasteride 5 mg Tablet 5 mg PO DAILY Held metformin 1,000 mg Tablet 1,000 mg PO BID Hold Instructions: Resume on 06/27/25. No Action doxycycline hyclate 100 mg capsule 100 mg PO BID 10 Days Qty: 20 0RF Discharge Order = DC NOW: Discharge Order (Routine); Ordered 06/25/25 Ordered By: Kamlesh Duckworth Referrals: Kamlesh Duckworth M.D [Physician, Cardiology] - 2 weeks Referral Note: We have notified your physician's clinic of the need for a follow-up appointment to be scheduled. If you have not heard from them within the next 2 business days, please call them directly. Hoa Villeda MD [Primary Care Provider, Family Practice] Referral Note: Patient will need to call the office Friday to schedule a hospital follow in 7-10 days Diet: Diabetic Activity: Increase activity as tolerated Patient Instructions: Clopidogrel (By mouth), Coronary Artery Disease (DC), Heart Catheterization (DC), Post Angiogram Home Care Instructions, Post Heart Attack Stoplight Print Language: [place] Discharge Date/Time: 06/25/25 10:34 Discharge Attestations Time Spent in Discharge Care*: less than 30 min Quality Metrics Clinical Quality Measures [ No reported AMI, CVA or VTE this stay] Coding Level of Care Code Acute Code for Chg Fwreynaldo
[2025-06-25 09:36] VITALS: BP 144/86; PULSE 73; RESP 16; O2SAT 93
--- NOTE | 2025-06-25 10:33 | PC.NURSE ---
discharge instructions given and explained.plavix provided by [employer] to beds program.pt verb understanding of instructions.discharged via w/c to exit at this time.spouse to drive pt home
== END 2025-06-25 10:34 | disposition home or self-care (01) ==
LOC: CCL 09:37 → CSU 14:21
PROVIDERS: Nurse Practitioner Family; PCP Family Medicine; Visit Provider Internal Medicine
DX: I25.118 Atherosclerotic heart disease of native coronary artery with other forms of angina pectoris (principal); I25.82 Chronic total occlusion of coronary artery; I10 Essential (primary) hypertension; E78.5 Hyperlipidemia, unspecified; Z95.1 Presence of aortocoronary bypass graft; E66.9 Obesity, unspecified; Z68.39 Body mass index [BMI] 39.0-39.9, adult; Z79.82 Long term (current) use of aspirin; E11.9 Type 2 diabetes mellitus without complications; Z79.84 Long term (current) use of oral hypoglycemic drugs; F32.9 Major depressive disorder, single episode, unspecified; F43.10 Post-traumatic stress disorder, unspecified
CPT/HCPCS: 36415; 36416; 80048; 82962; 85025; 85347; 90471; 90656; 93455; 99152; 99153; C1725; C1760; C1769; C1874; C1887; C1894; C9600; G0269; J1644; J2250; J3490; J7030; J9999; Q0163; Q9967

== ENCOUNTER 2025-07-01 12:36 | Emergency (ER) | payer OTHER, SELFPAY ==
[2025-07-01 12:47] VITALS: BP 139/85; PULSE 76; RESP 18; TEMP 36.7; O2SAT 93
--- NOTE | 2025-07-01 13:09 | XRR_ITS ---
PROCEDURE INFORMATION: Exam: XR Right Foot Exam date and time: 07/01/2025 1:58 PM Age: 75 years old Clinical indication: Pain; Foot; Right; Additional info: Pain discoloration TECHNIQUE: Imaging protocol: Radiologic exam of the right foot. Views: 3 or more views. COMPARISON: CR XR foot RT min 3V* [id number] 04/05/2025 12:49 PM FINDINGS: Bones/joints: Shortened 2nd metatarsal with cortical thickening is unchanged, likely reflecting healed fracture. Unchanged 1st metatarsal head osteophytes, associated with hallux valgus. No acute fracture or dislocation. Small plantar calcaneal bone spur again noted. Anterior tibial plafond osteophyte again noted. Soft tissues: Mild soft tissue swelling involves the great toe and 1st metatarsophalangeal joint. Small subcutaneous gas collection noted over the plantar aspect of the great toe, possibly reflecting laceration. XR/XR foot RT min 3V* [id number] IMPRESSION: 1. Mild soft tissue swelling involves the great toe and 1st metatarsophalangeal joint. 2. Small subcutaneous gas collection noted over the plantar aspect of the great toe, possibly representing laceration or ulceration. Clinical assessment is recommended.
--- NOTE | 2025-07-01 13:16 | W.ED.EXTPRO ---
HPI - Extremity Problem General: Chief complaint: Extremity Injury, Lower Stated complaint: Big Toe R foot Red and black Time Seen by Provider: 07/01/25 13:15 History of Present Illness: 75-year-old male presents emergency room concerns about his right great toe he has been following with Dr. Barnes for an ulcer on his toe for some time home health nursing at today and recommended to him that he go to the emergency room. No fever sweats or chills. Associated symptoms: Deny chest pain, fever(s) or rash Related Data Home Medications ?Medication ?Instructions ?Recorded ?Confirmed aspirin 81 mg tablet,delayed 81 mg PO DAILY 07/13/21 06/23/25 release atenolol 100 mg tablet 50 mg PO DAILY 07/13/21 06/23/25 lisinopril 20 1 tab PO DAILY 07/13/21 06/23/25 mg-hydrochlorothiazide 25 mg tablet pregabalin 150 mg capsule 150 mg PO BEDTIME 07/13/21 06/23/25 simvastatin 80 mg tablet 80 mg PO DAILY 07/13/21 06/23/25 tamsulosin 0.4 mg capsule 0.4 mg PO DAILY 07/13/21 06/23/25 alpha lipoic acid 600 mg capsule 600 mg PO BID 01/21/22 06/23/25 glipizide 5 mg tablet 5 mg PO BID 01/21/22 06/23/25 isosorbide mononitrate 60 mg 60 mg PO DAILY 01/21/22 06/23/25 tablet,extended release 24 hr fluticasone propionate 50 2 spray intranasal DAILY PRN 08/07/23 06/23/25 mcg/actuation nasal allergy symptoms spray,suspension (Allergy Relief (fluticasone)) doxepin 75 mg capsule 150 mg PO DAILY 04/07/24 06/23/25 metformin 1,000 mg tablet 1,000 mg PO BID 06/10/24 06/23/25 Held on 06/25/25. Instructions: Resume on 06/27/25. pregabalin 200 mg capsule 200 mg PO BEDTIME 06/10/24 06/23/25 ranolazine 500 mg tablet,extended 500 mg PO BID 06/10/24 06/23/25 release,12 hr finasteride 5 mg tablet 5 mg PO DAILY 10/01/24 06/23/25 Previous Rx's ?Medication ?Instructions ?Recorded CAM walker #1 ea 04/07/25 custom orthotic inserts A5513 #2 ea 04/19/25 1 pair Diabetic shoes- A5500 #1 ea 05/25/25 clopidogrel 75 mg tablet 75 mg PO DAILY #90 tabs 06/25/25 doxycycline hyclate 100 mg capsule 100 mg PO BID 10 days #20 caps 07/01/25 Allergies Allergy/AdvReac Type Severity Reaction Status Date / Time No Known Allergies Allergy Verified 06/02/25 12:41 Review of Systems Const: Denies: fever(s) or chills Card: Denies: chest pain Resp: Denies: dyspnea GI: Denies: abdominal pain : Denies: dysuria, urinary frequency or urinary urgency Musc: Denies: neck pain or back pain Skin/Breast: Denies: rash PFSH ED PFSH: Medical History History of nonmelanoma skin cancer History of malignant melanoma 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 Benign prostatic hyperplasia with lower urinary tract symptoms Carpal tunnel syndrome Hypertension Hyperlipidemia Major depressive disorder Male erectile dysfunction Multiple nodules of lung PTSD (post-traumatic stress disorder) Type 2 diabetes mellitus Alcohol abuse Opioid abuse Malignant neoplasm of skin Thoracic aortic aneurysm without rupture Social History Smoking and tobacco/nicotine status: never used tobacco/nicotine Alcohol intake: former Physical Exam Const: GENERAL APPEARANCE: cooperative ORIENTATION/CONSCIOUSNESS: Yes awake, Yes oriented to person, Yes oriented to place and Yes oriented to time HENMT: COMMON NORMALS: normocephalic, atraumatic and hearing grossly normal bilaterally HEAD & SCALP: normocephalic and atraumatic Resp: COMMON NORMALS: normal respiratory effort, No retractions, No use of accessory muscles and clear to auscultation bilaterally AUSCULTATION: clear to auscultation bilaterally Cardio: COMMON NORMALS: regular rate, regular rhythm and No murmurs present (Cardio) RATE: regular rate RHYTHM: regular rhythm GI: COMMON NORMALS: Soft to palpation and No hepatosplenomegaly present AUSCULTATION: Yes normoactive bowel sounds PALPATION: Yes Soft to palpation, No Tenderness to palpation present (GI), No Guarding due to palpation present (GI) and Yes No hepatosplenomegaly present Extremity: OTHER: Neuro: SENSORIUM/ORIENTATION: Yes oriented to person, Yes oriented to place and Yes oriented to time Skin: COMMON NORMALS: no rashes or lesions noted GENERAL SKIN EXAM: no rashes or lesions noted Course Vital Signs: Vital signs: Vital Signs Temperature 98.0 F 07/01/25 12:47 Pulse Rate 77 07/01/25 14:49 Respiratory Rate 18 07/01/25 12:47 Blood Pressure 176/87 07/01/25 14:49 Pulse Oximetry 99 07/01/25 14:49 Oxygen Delivery Me thod Room Air 07/01/25 12:47 MDM - Extremity (Nontraumatic) Medical Decision Making Reviewed with Dr. Barnes. No evidence of osteomyelitis there is a mild cellulitis dorsum of the toe is mildly reddened on the x-ray at makes comment about subcu air think that is the actual skin defect. do not believe he has any subcu air at this time there is no evidence of gangrene at this time. The darkened area of the skin appears to be more collection of blood along the flexor crease on the great toe. Will start him on doxycycline 100 twice daily for [address] Barnes will see him in the office in 3 days and debride as appropriate. Labs imaging reviewed as found in the chart for today's visit Medical Records I reviewed the patient's medical records. Lab Data I reviewed the patient's lab results. 07/01/25 13:38 07/01/25 13:38 Radiology Impressions Foot X-Ray 07/01/25 13:09 IMPRESSION: 1. Mild soft tissue swelling involves the great toe and 1st metatarsophalangeal joint. 2. Small subcutaneous gas collection noted over the plantar aspect of the great toe, possibly representing laceration or ulceration. Clinical assessment is recommended. Laboratory Results WBC 11.16 10^3/uL (3.29-11.43) 07/01/25 13:38 RBC 5.50 10^6/uL (3.85-5.65) 07/01/25 13:38 Hgb 17.10 g/dL (11.27-16.99) H 07/01/25 13:38 Hct 49.3 % (37-53) 07/01/25 13:38 MCV 89.6 fl (82-101) 07/01/25 13:38 MCH 31.1 pg (27-33) 07/01/25 13:38 MCHC 34.7 g/dL (30-55) 07/01/25 13:38 RDW 12.8 % (12.1-15.1) 07/01/25 13:38 Plt Count 213 10^3/cmm (157-399) 07/01/25 13:38 MPV 10.0 fL (7.4-10.4) 07/01/25 13:38 Neut % (Auto) 61.7 % 07/01/25 13:38 Lymph % (Auto) 27.2 % 07/01/25 13:38 [place] % (Auto) 6.9 % 07/01/25 13:38 Eos % (Auto) 3.2 % 07/01/25 13:38 Baso % (Auto) 0.6 % 07/01/25 13:38 Neut # (Auto) 6.88 10^3/uL (1.8-7.7) 07/01/25 13:38 Lymph # (Auto) 3.0 10^3/uL (0.8-4.8) 07/01/25 13:38 [place] # (Auto) 0.8 10^3/uL (0.2-0.9) 07/01/25 13:38 Eos # (Auto) 0.4 10^3/uL (0.0-0.8) 07/01/25 13:38 Baso # (Auto) 0.1 10^3/uL (0.0-0.1) 07/01/25 13:38 Nucleated RBC % (auto) 0 % 07/01/25 13:38 Nucleated RBCs # 0.0 /100WBC 07/01/25 13:38 Sodium 136 mmol/L (136-145) 07/01/25 13:38 Potassium 4.7 mmol/L (3.5-5.1) 07/01/25 13:38 Chloride 96 mmol/L (98-107) L 07/01/25 13:38 Carbon Dioxide 28 mmol/L (22-29) 07/01/25 13:38 Anion Gap 16.7 (5-19) 07/01/25 13:38 BUN 16 mg/dL (8-23) 07/01/25 13:38 Creatinine 0.9 mg/dL (0.7-1.2) 07/01/25 13:38 GFR Calculation Not Reportable 07/01/25 13:38 Glucose 127 mg/dL (65-115) H 07/01/25 13:38 Calculated Osmolality 285 mOsm/kg (285-295) 07/01/25 13:38 Calcium 9.3 mg/dL (8.5-10.5) 07/01/25 13:38 Total Bilirubin 0.3 mg/dL (0.15-1.2) 07/01/25 13:38 AST 16 U/L (0-40) 07/01/25 13:38 ALT 17 U/L (0-41) 07/01/25 13:38 Alkaline Phosphatase 108 U/L (40-130) 07/01/25 13:38 C-Reactive Protein 4.4 mg/L (0.0-4.9) 07/01/25 13:38 Total Protein 7.3 g/dL (6.6-8.7) 07/01/25 13:38 Albumin 4.3 g/dL (3.5-5.2) 07/01/25 13:38 Globulin 3.0 g/dL (1.3-4.6) 07/01/25 13:38 All radiology interpretation(s) finalized by discharge Discharge Plan Discharge Patient Disposition: Home Clinical Impression: Diabetic foot ulcer, Cellulitis of right foot Condition: Stable Prescriptions: New doxycycline hyclate 100 mg capsule 100 mg PO BID 10 Days Qty: 20 0RF No Action atenolol 100 mg tablet 50 mg PO DAILY lisinopril-hydrochlorothiazide 20-25 mg tablet 1 tab PO DAILY pregabalin 150 mg capsule 150 mg PO BEDTIME Rx Instructions: along with 200mg [id number] total simvastatin 80 mg tablet 80 mg PO DAILY aspirin 81 mg tablet,delayed release (DR/EC) 81 mg PO DAILY tamsulosin 0.4 mg capsule 0.4 mg PO DAILY glipizide 5 mg tablet 5 mg PO BID doxepin 75 mg capsule 150 mg PO DAILY isosorbide mononitrate 60 mg tablet extended release 24 hr 60 mg PO DAILY alpha lipoic acid 600 mg capsule 600 mg PO BID fluticasone propionate [Allergy Relief (fluticasone)] 50 mcg/actuation spray,suspension 2 spray intranasal DAILY PRN (Reason: allergy symptoms) Rx Instructions: administer into each nostril (DME) 1 pair Diabetic shoes- A5500 See Rx Instructions .Route .MEDSUPPLY Qty: 1 0RF Rx Instructions: As directed (DME) SANJEEV walker See Rx Instructions .Route .MEDSUPPLY Qty: 1 0RF Rx Instructions: As directed (DME) custom orthotic inserts A5513 See Rx Instructions .Route .MEDSUPPLY Qty: 2 0RF Rx Instructions: As directed by Georgina Sarabia'scooter extension metformin 1,000 mg Tablet 1,000 mg PO BID pregabalin 200 mg capsule 200 mg PO BEDTIME Rx Instructions: along with 150mg [id number] total ranolazine 500 mg Tablet Extended Release 12 Hr 500 mg PO BID finasteride 5 mg Tablet 5 mg PO DAILY clopidogrel 75 mg tablet 75 mg PO DAILY Qty: 90 3RF Discharge Orders: Discharge ED (Routine); Ordered 07/01/25 Ordered By: Sam Elizabeth Referrals: Hoa Villeda MD [Primary Care Provider, Family Practice] Discharge Diet: Usual diet Discharge Activity: Increase activity as tolerated Patient Instructions: Opioid Safety, Pain Management, Patient Portal & Claribel Instructions Activity Restrictions/Additional Instructions: Thank you for choosing [facility] for your healthcare needs today. It is very important that you follow up as instructed or that you return to the Emergency Department should you have concerns or if your condition changes or worsens in any way. Emergency department visits are focused on emergent conditions, in some cases you may require further evaluation on an outpatient basis. You are seen in the emergency room with concerns of your right toe. Does look like there is a mild cellulitis there we will start you on oral antibiotics. We put a picture of your toe on your chart and reviewed the picture and the x-ray done today with Dr. Barnes he agrees to the plan he recommends minimizing pressure on the toe while walking. Will give you a postop shoe to wear until you see Dr. Barnes. Apply [id number] topical antibiotic ointment to the wound and wrapped changing dressing twice a day. Dr. Barnes's office will contact you to make a follow-up appointment early next week. (Please note that included in your discharge packet is information concerning opioid safety and pain management. This information is given to all patients were discharged from the ER regardless of their discharge diagnosis or the medicines they usually take or are prescribed.) Print Language: Turkmen Coding Level of Care Code ED Special Delivery Messenger for Daniella Mosquera
[2025-07-01 13:58] LABS: Hematocrit 49.3 % (37-53); Hemoglobin 17.10 g/dL (11.27-16.99); Mean Corpuscular HGB Conc 34.7 g/dL (30-55); Mean Corpuscular Hemoglobin 31.1 pg (27-33); Mean Corpuscular Volume 89.6 fl (82-101); Nucleated Red Blood Cells % 0 %; Platelet Count 213 10^3/cmm (157-399); Red Blood Count 5.50 10^6/uL (3.85-5.65); White Blood Count 11.16 10^3/uL (3.29-11.43)
[2025-07-01 14:14] LABS: Alanine Aminotransferase 17 U/L (0-41); Albumin Level 4.3 g/dL (3.5-5.2); Alkaline Phosphatase 108 U/L (40-130); Aspartate Amino Transferase 16 U/L (0-40); Blood Urea Nitrogen 16 mg/dL (8-23); Calcium 9.3 mg/dL (8.5-10.5); Carbon Dioxide 28 mmol/L (22-29); Chloride 96 mmol/L (98-107); Creatinine Clr Calc Pharmacy 105.7093; Globulin 3.0 g/dL (1.3-4.6); Glucose 127 mg/dL (65-115); Osmolality Calculated 285 mOsm/kg (285-295); Sodium 136 mmol/L (136-145); Total Protein 7.3 g/dL (6.6-8.7)
[2025-07-01 14:22] LABS: Anion Gap 16.7 (5-19); Potassium 4.7 mmol/L (3.5-5.1)
[2025-07-01 14:49] VITALS: BP 176/87; PULSE 77; O2SAT 99
== END 2025-07-01 14:50 | disposition home or self-care (01) ==
PROVIDERS: Emergency Provider Family Medicine; PCP Family Medicine
DX: E11.621 Type 2 diabetes mellitus with foot ulcer (principal); L97.512 Non-pressure chronic ulcer of other part of right foot with fat layer exposed; L03.115 Cellulitis of right lower limb
CPT/HCPCS: 36415; 73630; 80053; 85025; 86140; 99284

== ENCOUNTER → 2025-07-04 10:42 | Outpatient (BNVA) | payer OTHER, SELFPAY | PROVIDERS: PCP Family Medicine; Visit Provider Podiatrist Foot & Ankle Surgery | DX: E11.621 Type 2 diabetes mellitus with foot ulcer (principal); L97.512 Non-pressure chronic ulcer of other part of right foot with fat layer exposed; E11.42 Type 2 diabetes mellitus with diabetic polyneuropathy; M20.21 Hallux rigidus, right foot; L03.115 Cellulitis of right lower limb; M21.611 Bunion of right foot; M21.612 Bunion of left foot; Z79.84 Long term (current) use of oral hypoglycemic drugs | CPT/HCPCS: 11042; 11045; 99214 ==

== ENCOUNTER → 2025-07-14 10:20 | Outpatient (BNVA) | payer OTHER, SELFPAY | PROVIDERS: PCP Family Medicine; Visit Provider Podiatrist Foot & Ankle Surgery | DX: E11.42 Type 2 diabetes mellitus with diabetic polyneuropathy (principal); M20.21 Hallux rigidus, right foot; L03.115 Cellulitis of right lower limb; L97.512 Non-pressure chronic ulcer of other part of right foot with fat layer exposed; M21.611 Bunion of right foot; M21.612 Bunion of left foot; Z79.84 Long term (current) use of oral hypoglycemic drugs | CPT/HCPCS: 99214 ==

== ENCOUNTER → 2025-07-22 10:43 | Outpatient (BNVA) | payer OTHER, SELFPAY | PROVIDERS: PCP Family Medicine; Visit Provider Internal Medicine Cardiovascular Disease | DX: I25.709 Atherosclerosis of coronary artery bypass graft(s), unspecified, with unspecified angina pectoris (principal); I25.82 Chronic total occlusion of coronary artery; E78.5 Hyperlipidemia, unspecified; I10 Essential (primary) hypertension; Z95.1 Presence of aortocoronary bypass graft; Z95.5 Presence of coronary angioplasty implant and graft | CPT/HCPCS: 99214 ==

== ENCOUNTER 2025-07-27 10:05 | Outpatient (CLI) | payer OTHER, SELFPAY | END 2025-07-27 10:06 | disposition home or self-care (01) | LOC: RAD 10:07 | PROVIDERS: PCP Family Medicine; Visit Provider Family Medicine | DX: R91.1 Solitary pulmonary nodule (principal); E11.621 Type 2 diabetes mellitus with foot ulcer; L97.512 Non-pressure chronic ulcer of other part of right foot with fat layer exposed; M21.611 Bunion of right foot; M21.612 Bunion of left foot; E11.42 Type 2 diabetes mellitus with diabetic polyneuropathy; M20.21 Hallux rigidus, right foot; Z79.84 Long term (current) use of oral hypoglycemic drugs | CPT/HCPCS: 11042 ==

== ENCOUNTER 2025-08-04 15:14 | Outpatient (CLI) | payer OTHER, SELFPAY ==
--- NOTE | 2025-08-04 15:28 | CT_ITS ---
WS: [id number] CT chest w con* [id number] HISTORY: FOLLOW UP PULMONARY NODULE TECHNIQUE: Axial imaging performed through the thorax. Coronal and sagittal reformats are submitted. All CT scans at [facility] use at least one of these dose optimization techniques: automated exposure control; mA and/or kV adjustment per patient size (includes targeted exams where dose is matched to clinical indication); or iterative reconstruction. CONTRAST: Omnipaque 350; 100 mL IV. DLP: 702.90 mGy.cm COMPARISON: 12/20/2022, 07/02/2024 Lungs and central airway: Lungs are slightly hyperinflated. Mild elevation RIGHT hemidiaphragm. Reidentified are multiple subcentimeter nodules in the posterior RIGHT upper lobe and in the superior segment RIGHT lower lobe. These nodules have increased in size. There are a few very tiny pleural nodules also. Stable nodule RIGHT lung base measures 3 mm. 1.6 cm nodule with central calcification at the LEFT lung base is stable. There is mild increased amount of pleural fat. Pleura: Normal. No pleural effusion. Heart and pericardium: Normal size heart. Dense coronary artery calcifications. Prior CABG. Mediastinum and ethan: No mediastinum or hilar adenopathy. Vessels: Mild dilatation ascending aorta to 4.1 cm. Mild atherosclerosis. Normal caliber descending aorta. Normal size pulmonary artery. Chest wall and lower neck: No soft tissue masses. Upper abdomen: No adrenal mass. Fatty replacement of the pancreas. Visualized gallbladder is negative. Osseous structures: No destructive process. CT/CT chest w con* [id number] IMPRESSION: 1. Long-term stability of subcentimeter pulmonary nodules. No increase in size or number of pulmonary nodules since 12/20/2022. 2. Partially calcified 1.6 cm nodule at the LEFT lung base is also stable. 3. No mediastinal or hilar adenopathy. 4. No pneumonia. 5. Prior CABG. 6. Stable mild dilatation ascending thoracic aorta, 4.1 cm.
[2025-08-04] MEDS: iohexol 350 mg/mL 500 mL Btl (per mL) IV (16:13)
== END 2025-08-04 15:15 | disposition home or self-care (01) ==
LOC: RAD 15:14
PROVIDERS: PCP Family Medicine; Visit Provider Nurse Practitioner
DX: Z01.89 Encounter for other specified special examinations (principal); R91.8 Other nonspecific abnormal finding of lung field; J98.6 Disorders of diaphragm; I70.0 Atherosclerosis of aorta; I25.10 Atherosclerotic heart disease of native coronary artery without angina pectoris; Z95.1 Presence of aortocoronary bypass graft
CPT/HCPCS: 71260

== ENCOUNTER 2025-08-09 10:41 | Outpatient (CLI) | payer OTHER, SELFPAY ==
--- NOTE | 2025-08-09 11:15 | USCV_ITS ---
German Carreon Age: 75 Gender: M : 1950 Exam Date: 08/09/2025 11:19 Ordering Phys: Guillermo Pedroza MD ([email or web address]) Technologist: Exam Location: [facility] – [place] Indication: cad hx of mi BP: 120 / 80 HR: 87 Rhythm: Sinus Technical Quality: MEASUREMENTS (Male / Female) Normal Values 2D ECHO LV Diastolic Diameter PLAX 4.4 cm 4.2 - 5.9 / 3.9 - 5.3 cm IVS Diastolic Thickness 1.5 cm 0.6 - 1.0 / 0.6 - 0.9 cm IVS Systolic Thickness 1.9 cm LVPW Diastolic Thickness 1.5 cm 0.6 - 1.0 / 0.6 - 0.9 cm LVPW Systolic Thickness 1.8 cm LVOT Diameter 2.0 cm LV Ejection Fraction 2D Teich 63.3 % LV Ejection Fraction MOD 4C 68.2 % LV Ejection Fraction MOD 2C 66.0 % LV Ejection Fraction 2C AL 66.7 % LA Diameter 4.3 cm RA Systolic Volume 4C AL 44.5 ml RA Systolic Volume 4C MOD 41.1 ml LA Sys Volume AL 69.0 cm cubed LA Sys Volume Index AL 25.4 cm cubed/m squared Aorta at Sinotubular Diameter 3.2 cm M-MODE LA Ao Ratio MM 1.0 AV Cusp Separation MM 3.0 cm DOPPLER MV Peak Velocity 73.0 cm/s MV Area PHT 4.2 cm squared Mitral E to A Ratio 0.9 TR Peak Velocity 123.0 cm/s TR Peak Gradient 6.1 mmHg TV Peak E Velocity 64.0 cm/s PV Peak Velocity 88.0 cm/s FINDINGS Left Ventricle Left ventricular cavity not well visualized. Normal left ventricular cavity size. Moderate left ventricular hypertrophy. Normal global left ventricular systolic function. Segmental wall motion assessment limited by technically difficult images. Left ventricular ejection fraction is approximately 55%. Normal diastolic function. Right Ventricle Normal right ventricular size and systolic function. RVSP could not be calculated due to incomplete tricuspid regurgitation velocity profile. Right Atrium Normal right atrial size. Left Atrium Normal left atrial size. IA Septum Normal appearance of the interatrial septum. Mitral Valve Normal mitral valve structure. No mitral valve stenosis or regurgitation. Aortic Valve Normal aortic valve structure. No aortic valve stenosis or regurgitation. Tricuspid Valve Normal tricuspid valve structure. No tricuspid valve stenosis or regurgitation. Pulmonic Valve Normal pulmonic valve structure. No pulmonic valve stenosis or regurgitation. Pericardium No pericardial effusion. Aorta Normal diameter of the aortic root and ascending thoracic aorta. IVC Inferior vena cava not visualized. CONCLUSIONS Left ventricular cavity not well visualized. Normal left ventricular cavity size. Moderate left ventricular hypertrophy. Normal global left ventricular systolic function. Segmental wall motion assessment limited by technically difficult images. Left ventricular ejection fraction is approximately 55%. Normal diastolic function. Normal right ventricular size and systolic function. No significant valvular abnormalities. Guillermo Pedroza MD, FACC (Electronically Signed) Final Date: 16 August 2025 20:35 S
== END 2025-08-09 10:42 | disposition home or self-care (01) ==
LOC: RAD 10:42
PROVIDERS: PCP Family Medicine; Visit Provider Internal Medicine Cardiovascular Disease
DX: R06.02 Shortness of breath (principal); I51.7 Cardiomegaly
CPT/HCPCS: 93306

== ENCOUNTER → 2025-08-10 14:07 | Outpatient (BNVA) | payer OTHER, SELFPAY | PROVIDERS: PCP Family Medicine; Visit Provider Podiatrist Foot & Ankle Surgery | DX: E11.621 Type 2 diabetes mellitus with foot ulcer (principal); L97.512 Non-pressure chronic ulcer of other part of right foot with fat layer exposed; E11.42 Type 2 diabetes mellitus with diabetic polyneuropathy; M20.21 Hallux rigidus, right foot; M21.611 Bunion of right foot; M21.612 Bunion of left foot; Z79.84 Long term (current) use of oral hypoglycemic drugs | CPT/HCPCS: 11042; 99213 ==

== ENCOUNTER 2025-08-11 11:09 | Emergency (ER) | payer OTHER, SELFPAY ==
--- OUTSIDE RECORDS SUMMARY | 2017-04-06 07:04 | XMS_ITS | Continuity of Care Document ---
Author Organization [facility] Address [address] [place] [phone] Phone Care Team Providers Care Loom Overhauler Name Role Phone MD Joyce, Ethan Unavailable Unavailable Procedures Procedure Date H Echo Advance Directives Directive Yes / No Effective Date File Name No Information Encounters Encounter Description Practice Location Reason(s) For Visit Diagnoses Date Provider Providers Copied on Encounter [facility], [address] [place] [address], [id number], tel:[phone] No Information 7 MD Ethan Cook. [address] [place] [address], [id number] , . tel:[phone] [facility], [address] [place] [address], [id number], tel:[phone] [place] No Information 7 MD Ethan Cook. [address] [place] [address], [id number] , . tel:[phone] Referring Provider: Ethan Cook MD, [address] [place] [address], [id number] . tel:[phone] Family History Family Member Type Diagnosis Age At Onset No Information Payers Payer name Insurance type Covered republican ID Authoriza tion(s) No Information Social History Type Description Quantity Date Captured Comments Sex Male Smoking Status No Information Chief Complaint And Reason For Visit No Information Reason For Referral Reason For Referral No Information History Of Present Illness Encounter Date Complaint History Of Prese nt Illness No Information Functional Status Date Functional Assessmen t No Information Instructions Date Instruction Additional Infor mation No Information Assessments Type Assessment Date No Information Patient Care Teams Name Effective Dates (start - stop) Status Members No Information
--- NOTE | 2025-08-11 11:59 | XR_ITS ---
WS: [id number] XR hand LT min 3V* [id number] REASON FOR EXAM: injury FINDINGS: Ring and pulse ox monitor partially obscures the fifth distal phalange and the fourth proximal phalange. Comminuted moderately displaced fracture of the tuft of the distal phalanx of the middle finger. No other acute bone or joint abnormality is identified. XR/XR hand LT min 3V* [id number] IMPRESSION: Middle finger fracture as above.
[2025-08-11 12:00] VITALS: BP 92/63; PULSE 82; RESP 18; O2SAT 90
--- NOTE | 2025-08-11 12:03 | W.ED.ANIMALB ---
HPI - Animal Bite General: Chief Complaint: Animal Bite Stated Complaint: Dog bites Middle finger L hand Time Seen by Provider: 08/11/25 11:51 Source: patient Mode of arrival: ambulatory Limitations: no limitations History of Present Illness: 75-year-old male states he is trying to break up a fight amongst his dogs. States 1 dog did attack him. He has multiple bite wounds worse bite wounds to his left middle finger with laceration with partial amputation distal tip. He has a bite to his left elbow right hand and left lower leg that are puncture wounds. He rates his pain a 6 out of 10 Related Data Home Medications ?Medication ?Instructions ?Recorded ?Confirmed aspirin 81 mg tablet,delayed 81 mg PO DAILY 07/13/21 08/10/25 release atenolol 100 mg tablet 50 mg PO DAILY 07/13/21 08/10/25 pregabalin 150 mg capsule 150 mg PO BEDTIME 07/13/21 08/10/25 simvastatin 80 mg tablet 80 mg PO DAILY 07/13/21 08/10/25 tamsulosin 0.4 mg capsule 0.4 mg PO DAILY 07/13/21 08/10/25 alpha lipoic acid 600 mg capsule 600 mg PO BID 01/21/22 08/10/25 glipizide 5 mg tablet 5 mg PO BID 01/21/22 08/10/25 fluticasone propionate 50 2 spray intranasal DAILY PRN 08/07/23 08/10/25 mcg/actuation nasal allergy symptoms spray,suspension (Allergy Relief (fluticasone)) doxepin 75 mg capsule 150 mg PO DAILY 04/07/24 08/10/25 metformin 1,000 mg tablet 1,000 mg PO BID 06/10/24 08/10/25 Held on 06/25/25. Instructions: Resume on 06/27/25. pregabalin 200 mg capsule 200 mg PO BEDTIME 06/10/24 08/10/25 finasteride 5 mg tablet 5 mg PO DAILY 10/01/24 08/10/25 Previous Rx's ?Medication ?Instructions ?Recorded CAM walker #1 ea 04/07/25 custom orthotic inserts A5513 #2 ea 04/19/25 1 pair Diabetic shoes- A5500 #1 ea 05/25/25 clopidogrel 75 mg tablet 75 mg PO DAILY #90 tabs 07/22/25 isosorbide mononitrate 60 mg 90 mg (1.5 x 60 mg) PO DAILY #135 07/22/25 tablet,extended release 24 hr tabs lisinopril 10 1 tab PO DAILY #90 tabs 07/22/25 mg-hydrochlorothiazide 12.5 mg tablet ranolazine 1,000 mg 1,000 mg PO BID #270 tabs 07/22/25 tablet,extended release,12 hr amoxicillin 500 mg-potassium 1 tab PO BID #14 tabs 08/11/25 clavulanate 125 mg tablet (Augmentin) Allergies Allergy/AdvReac Type Severity Reaction Status Date / Time No Known Allergies Allergy Verified 08/10/25 14:25 PFSH ED PFSH: Medical History History of nonmelanoma skin cancer History of malignant melanoma Atherosclerotic heart disease of [place] coronary artery with unspecified angina pectoris Benign prostatic hyperplasia with lower urinary tract symptoms Carpal tunnel syndrome Hypertension Hyperlipidemia Major depressive disorder Male erectile dysfunction Multiple nodules of lung PTSD (post-traumatic stress disorder) Type 2 diabetes mellitus Alcohol abuse Opioid abuse Malignant neoplasm of skin Thoracic aortic aneurysm without rupture Surgical History Hx of coronary artery bypass surgery Social History Smoking and tobacco/nicotine status: never used tobacco/nicotine Alcohol intake: former Physical Exam Const: COMMON NORMALS: no acute distress, patient oriented x3 and healthy appearing HENMT: COMMON NORMALS: normocephalic and atraumatic HEAD & SCALP: normocephalic and atraumatic Neck/C-Spine: COMMON NORMALS: full ROM and supple Chest: COMMONS NORMALS: normal inspection of the chest Resp: COMMON NORMALS: normal respiratory effort Cardio: COMMON NORMALS: regular rate RATE: regular rate Extremity: COMMON NORMALS: full ROM NARRATIVE EXTREMITY EXAM: Patient has laceration to tip of his left middle finger extends to the nailbed partial amputation. Skin abrasion over right hand from dog bite does have a puncture wound to left elbow left lower leg bleeding is controlled Neuro: COMMON NORMALS: patient oriented x3, moves all extremities and no focal motor deficits Psych: COMMON NORMALS: mental status grossly normal, Normal thought process present and cooperative THOUGHT PROCESS: Normal thought process present Skin: COMMON NORMALS: no rashes or lesions noted and no wounds GENERAL SKIN EXAM: no rashes or lesions noted Procedures Laceration Laceration 1: Site: hand Side (If applicable): left Size (cm): 3 Description: irregular Depth: simple, single layer Local Anesthetic: bupivacaine 0.5% Amount of anesthesia used (mL): 8 Pre-repair: wound explored and irrigated extensively Skin layer closed with: nylon Size (cm): 5-0 Number of sutures: 5 Technique: simple, interrupted Course Vital Signs: Vital signs: Vital Signs Pulse Rate 82 08/11/25 12:00 Respiratory Rate 18 08/11/25 12:00 Blood Pressure 92/63 08/11/25 12:00 Pulse Oximetry 90 08/11/25 12:00 Oxygen Delivery Me thod Nasal Cannula 08/11/25 12:00 Oxygen Flow Rate 2 08/11/25 12:00 MDM - Animal Bite Medical Decision Making 75-year-old male presents here after he was attacked by his dog. Dog was up-to-date on immunizations. Multiple abrasions and puncture wounds did have a near amputation to the tip of his right middle finger with a tuft fracture. Did suture the finger including the nailbed and will place him in a splint. I did irrigate the wound extremely thoroughly we will place him on Augmentin. Will give him follow-up with orthopedics as well. He also has a possible radial head fracture and placed in a sling. I informed him there is a chance that he could lose the distal tip of his finger. Will place him on Augmentin for prophylaxis informed him to watch for any signs of infection is to return immediately he understands agrees to plan. Medical Records I reviewed the patient's medical records. Lab Data Radiology Impressions Hand X-Ray 08/11/25 11:59 IMPRESSION: Middle finger fracture as above. Elbow X-Ray 08/11/25 12:07 IMPRESSION: Probable occult fracture of the radial head. All radiology interpretation(s) finalized by discharge Discharge Plan Discharge Patient Disposition: Home Clinical Impression: Open fracture of tuft of distal phalanx of finger, Left radial head fracture Dog bite Qualifiers: Encounter type: initial encounter Qualified Code(s): W54.0XXA - Bitten by dog, initial encounter Finger laceration Qualifiers: Encounter type: initial encounter Finger: middle finger Damage to nail status: with damage Foreign body presence: without foreign body Laterality: left Qualified Code(s): S61.313A - Laceration without foreign body of left middle finger with damage to nail, initial encounter Condition: Stable Prescriptions: New amoxicillin-pot clavulanate [Augmentin] 500-125 mg tablet 1 tab PO BID Qty: 14 0RF No Action atenolol 100 mg tablet 50 mg PO DAILY pregabalin 150 mg capsule 150 mg PO BEDTIME Rx Instructions: along with 200mg [id number] total simvastatin 80 mg tablet 80 mg PO DAILY aspirin 81 mg tablet,delayed release (DR/EC) 81 mg PO DAILY tamsulosin 0.4 mg capsule 0.4 mg PO DAILY glipizide 5 mg tablet 5 mg PO BID doxepin 75 mg capsule 150 mg PO DAILY alpha lipoic acid 600 mg capsule 600 mg PO BID fluticasone propionate [Allergy Relief (fluticasone)] 50 mcg/actuation spray,suspension 2 spray intranasal DAILY PRN (Reason: allergy symptoms) Rx Instructions: administer into each nostril (DME) 1 pair Diabetic tosin- A5500 See Rx Instructions .Route .MEDSUPPLY Qty: 1 0RF Rx Instructions: As directed (DME) SANJEVE dillon See Rx Instructions .Route .MEDSUPPLY Qty: 1 0RF Rx Instructions: As directed lisinopril-hydrochlorothiazide 10-12.5 mg tablet 1 tab PO DAILY Qty: 90 3RF isosorbide mononitrate 60 mg tablet extended release 24 hr 90 mg PO DAILY Qty: 135 3RF clopidogrel 75 mg tablet 75 mg PO DAILY Qty: 90 3RF ranolazine 1,000 mg tablet extended release 12 hr 1,000 mg PO BID Qty: 270 3RF (DME) custom orthotic inserts A5513 See Rx Instructions .Route .MEDSUPPLY Qty: 2 0RF Rx Instructions: As directed by Georgina lino metformin 1,000 mg Tablet 1,000 mg PO BID pregabalin 200 mg capsule 200 mg PO BEDTIME Rx Instructions: along with 150mg [id number] total finasteride 5 mg Tablet 5 mg PO DAILY Discharge Orders: Discharge ED (Routine); Ordered 08/11/25 Ordered By: Gustavo Prakash Referrals: Hoa Villeda MD [Primary Care Provider, Family Practice] - 4-7 days Discharge Diet: Advance as tolerated Discharge Activity: Resume usual activity Patient Instructions: Animal Bite (ED), Finger Laceration (ED) Print Language: Uzbek Coding Level of Care Code ED Co Founder for Daniella Mosquera
[2025-08-11] MEDS: BUPivacaine 0.5% INJ 10 mL INJECTION (12:06)
--- NOTE | 2025-08-11 12:07 | XR_ITS ---
WS: [id number] XR elbow LT min 3V* [id number] REASON FOR EXAM: injury FINDINGS: Spondylosis and in the cortex of the radial head which likely represents an occult nondisplaced radial head compression fracture. 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 No other acute bone or joint abnormality. XR/XR elbow LT min 3V* [id number] IMPRESSION: Probable occult fracture of the radial head.
[2025-08-11] MEDS: tetanus-dipt-pertussis 0.5 mL SDV IM (12:50)
--- OUTSIDE RECORDS SUMMARY | 2025-08-11 15:16 | XMS_ITS | Encounter Summary ---
Author Organization [facility] Address [address] [place] [address] Care Team Providers Care Industrial Controller Name Role Phone Katharine Back MD Primary Care Provider Encounter Details Date Type Department Care Team (Late st Contact Info) Description 12/18/2021 Digital Self COVID-1 9 Monitoring [facility] ABSTRACTION Provider, Abstract NO ADDRESS ON FILE Social History Tobacco Use Types Packs/Day Years Used Date Smoking Tobacco: Never Smokeless Tobacco: Never Sex and Gender Information Value Date Recorded Sex Assigned at Not on file Legal Sex Male 4:40 PM CDT Gender Identity Not on file Sexual Orientation Not on file COVID-19 Exposure Response Date Recorded In the last month, have you been in contact with someone who was confirmed or suspected to have Coronavirus / COVID-19? No / Unsure 12/14/2021 12:59 PM CDT documented as of this encounter Plan of Treatment Not on file documented as of this encounter Visit Diagnoses Not on filedocumented in this encounter Care Teams Industrial Controller Relationship Specialty Start Date End Date Katharine Back MD [address] [facility] [address] [place] [id number] PCP - General Family Practice 03/18/24 09/26/24 documented as of this encounter
--- OUTSIDE RECORDS SUMMARY | 2025-08-11 15:16 | XMS_ITS | Encounter Summary ---
Author Organization [facility] Address [address] [place] [address] Care Team Providers Care Offal Roller Name Role Phone Katharine Back MD Primary [...] on filedocumented in this encounter Care Teams Offal Roller Relationship Specialty Start Date End Date Katharine Back MD [address] [facility] [address] [place] [phone] PCP - General Family Practice 03/18/24 09/26/24 documented as of this encounter
--- OUTSIDE RECORDS SUMMARY | 2025-08-11 15:16 | XMS_ITS | Clinical Summary ---
Author Organization [facility] Address [address] [place] [address] Phone Care Team Providers Care Industrial Engineering Technician Name Role Phone Unavailable Primary Care Provider Unavailabl e Allergies No known active allergies Medications nitroglycerin (NITROSTAT) 0.4 mg Tablet, Sublingual Place 0.4 mg under tongue every 5 minutes as needed for Chest Pain. Active oxygen home deliveryIndicati ons:Shortness of breath Concentrator with portability at 2LPM via nasal cannula. Also, oxygen at a setting of 2 on a conserving device Length of need: 6 months or greater 1 Each 2 Active pulse oximetry - AMB non-monitoredInd ications:Shortne ss of breath Home continuous pulse oximeter use spot checks Length of Need: 1 month Your baseline Pulse Oximeter measurement is 92 % on 2 liters/min by nasal cannula. If your Pulse Oximeter reading goes below 90% call [employer] at [phone] or if you are in distress, please call 911 immediately. 1 Each 2 Active polyethylene glycol 3350 (MIRALAX) 17 gram/dose PowderIndication s:Constipation, unspecified constipation type Take 1 Scoop (17 Grams) by mouth daily. Dissolve in 8 ounces of fluid and drink entire liquid 850 Gram 3 4 Active simvastatin (ZOCOR) 40 mg tablet Take 20 mg by mouth. 5 Active lisinopril-hydro CHLOROthiazide (ZESTORETIC) 20-25 mg tablet Take by mouth. 4 Active aspirin (ECOTRIN EC) 81 mg Tablet, Delayed Release (E.C.) Take 81 mg by mouth. 4 Active albuterol sulfate HFA 90 mcg/actuation aerosol inhaler Take by inhalation. 5 Active furosemide (LASIX) 20 mg tablet Take 20 mg by mouth 2 times daily. Active isosorbide mononitrate (IMDUR) 60 mg Extended Release 24 hour tablet Take 1 Tablet by mouth daily. Active polyvinyl alcohol-povidon, PF, (REFRESH CLASSIC) 1.4-0.6 % solution by Ophthalmic route. 5 Active ranolazine ER (RANEXA) 500 mg Extended Release 12 hour tablet Take 500 mg by mouth. 5 Active atenoloL (TENORMIN) 100 mg tablet Take 50 mg by mouth. 5 Active doxepin (SINEquan) 75 mg Capsule Take 225 mg by mouth. 5 Active finasteride (PROSCAR) 5 mg tablet Take 5 mg by mouth. 5 Active glipiZIDE (GLUCOTROL) 5 mg tablet Take 5 mg by mouth. 5 Active metFORMIN (GLUCOPHAGE) 1,000 mg tablet 2 times daily. Active pregabalin (LYRICA) 200 mg Capsule Take 200 mg by mouth. 5 Active pregabalin (LYRICA) 150 mg Capsule Take 150 mg by mouth. 5 Active tamsulosin (FLOMAX) 0.4 mg capsule Take 0.4 mg by mouth. 5 Active Active Problems Problem Noted Date Diagnosed Date Thoracic aortic aneurysm without rupture 023 Overview (12/10/2022): Sep 01, 2019 Entered By: KAZ COATES Comment: Chest CT 09/09 stable at 4.1 cmDec 2019 Entered By: KAZ COATES Comment: Chest CT 09/10 - Thoracic Aorta WNL Restrictive lung disease 12/10/2022 Overview (12/10/2022): Nov 26, 2018 Entered By: KAZ COATES Comment: PFTs 12/08 w/ mild decreased DLCO and nonspecific borderline reductionNov 26, 2018 Entered By: KAZ COATES Comment: in spirometry Peripheral venous insufficiency 12/10/2022 Multiple nodules of lung 12/10/2022 Overview (12/10/2022): Dec 02, 2018 Entered By: KAZ COATES Comment: Chest CT 12/08 - repeat 3 monthsOct 2018 Entered By: KAZ COATES Comment: Chest CT 03/10 stable repeat 6 monthsDec 2018 Entered By: KAZ COATES Comment: Chest CT 09/09 - stable repeat 12 monthsDec 2019 Entered By: KAZ COATES Comment: Chest CT 09/10 - stable repeat 1 year Severe obesity (BMI 35.0-39.9) with comorbidity 12/10/2022 Nondependent alcohol abuse, in remission 023 Overview (12/10/2022): Jul 30, 2018 Entered By: KAZ COATES Comment: quit 1985 History of melanoma 12/10/2022 Recurrent major depressive disorder, in partial remission 12/10/2022 Lower urinary tract symptoms due to benign prostatic hyperplasia 12/10/2022 Hypertensive heart disease without congestive he art failure 12/10/2022 Hypertension 12/10/2022 Hyperlipidemia 12/10/2022 History of coronary artery bypass surgery 2022 Erectile dysfunction 12/10/2022 Diabetic neuropathy 12/10/2022 Posttraumatic stress disorder 12/10/2022 Bilateral pseudophakia 12/10/2022 Atherosclerosis of [place] co ronary artery of [place] heart with stable angina pectoris 12/10/2022 Type 2 diabetes mellitus wit h circulatory disorder, without long-term current use of insulin 12/10/2022 Encounters Date Type Department Care Team Description 05/24/2025 External Device Data STL ABSTRACTION Provider, Abstract from Last 3 Months Immunizations Immunization Administration Dates Next Due (ADACEL/BOOSTRIX)(10 YR UP) TDAP VACCINE, 0.5ML, IM 07/30/2018 (AREXVY)(60 YR UP) RSV, PARESH MBINANT, PROTEIN SUBUNIT RSVPREF, ADJUVANT RECONSTITUTED, 0.5 ML, PF 10/24/2023 (PNEUMOVAX 23)(50 YRS UP) PN EUMOCOCCAL POLYSACCHARIDE (PPV23) 0.5 ML, IM 11/07/2021,06/24/2019,05/23/2009 (PREVNAR 13)(6 WKS UP) PNEUM OCOCCAL CONJUGATE (PCV13) 0.5 ML, IM 05/23/2016,01/16/2016 (SHINGRIX)(50 YRS UP) ZOSTER VACCINE RECOMBINANT, 0.5 ML, IM 11/02/2020,11/02/2019,08/03/2019 (SPIKEVAX) (12 YRS UP PRIMAR Y SERIES) COVID-19 VACCINE - MRNA-1273(PF) 100 MCG/0.5 ML IM SUSP 05/09/2022,08/09/2021,12/02/2020,11/04 (SPIKEVAX)(12YR UP) COVID-19 VACCINE, MRNA (PF)50 MCG/0.5 ML, IM SYRINGE 08/11/2024,06/17/2023 INFLUENZA VACCINE HIGH DOSE QUADRIVALENT 65 YR UP PF IM 06/17/2023,07/05/2022,06/26/2018,08/14 INFLUENZA VACCINE QUADRIVALE NT 6 MOS UP PF IM 06/10/2020,07/17/2017 INFLUENZA VACCINE QUADRIVALE NT ADJ 65 YR UP PF IM 06/07/2021 Influenza Seasonal Unspecifi ed Formulation IM 06/06/2024,06/17/2023,05/23/2018,07/23,09/02/2001 Influenza Seasonal Unspecifi ed Formulation PF IM 06/20/2014 Influenza Vaccine High Dose 65+ Yrs IM 4 Influenza Vaccine Tri Adjuva nted 65+ PF IM 07/14/2019 Influenza, Unspecified Formulation 05/23,07/07/2016,06/26/2015,06/20,07/21/2013,07/03/2012,07/24/2011 ,07/06/2010,09/22/2009,09/20/2009,05/2009,07/22/2008,09/04/2007, 6,06/28/2005,08/01/2004,07/22/2003,09/2001,09/02/2001 Novel [id number], All Formulations 07/06/2010 PREVNAR (PCV13) pneumococcal 13-valent conjugate Vaccine 06/26/2018 Pneumococcal vaccine, unspec ified formulation 07/12/2009,08/01/2004 Td(adult) Unspecified Formulation 07/12/2009,09/1996 Social History Tobacco Use Types Packs/Day Years Used Date Smoking Tobacco: Never Smokeless Tobacco: Never Tobacco Cessation:Counseling Given: No Alcohol Use Standard Drinks/Week Comments Not Currently 0 (1 standard drink = 0.6 oz pur e alcohol) Sex and Gender Information Value Date Recorded Sex Assigned at Not on file Legal Sex Male 4:40 PM CDT Gender Identity Not on file Sexual Orientation Not on file Last Filed Vital Signs Vital Sign Reading Time Taken Comments Blood Pressure 141/80 04/05/2025 11:22 AM CDT Pulse 81 04/05/2025 11:12 AM CDT Temperature 36.4 C (97.6 F) 04/05/2025 11:12 AM CDT Respiratory Rate 20 04/05/2025 11:1 2 AM CDT Oxygen Saturation 96% 04/05/2025 11: 12 AM CDT Inhaled Oxygen Concentration - - Weight 139.6 kg (307 lb 12.8 oz) 2024 11:12 AM CDT Height 188 cm (6' 2 ) 04/05/2025 11:12 AM CDT Body Mass Index 39.52 04/05/2025 11:12 AM CDT Plan of Treatment Health Maintenance Due Date Last Done Comments COLORECTAL SCREENING 1995 FIT/FOBT Q 1 year 1995 Flex Sig/CT Colonography Q 5 years 1995 DIABETES ANNUAL FOOT EXAM 09/03/2024 09/03/2023 DIABETES MICROALBUMIN ANNUAL SCREEN 01/11/2025 01/12/2024, 09/03/2023 LDL CHOLESTEROL ANNUAL 01/11/2025 , 11/24/2023, 11/24/2023 DIABETES ANNUAL RETINAL EXAM 01/28/2025 01/29/2024 COVID-19 Vaccine (7 - 4-2 5 season) 2025 08/11/2024, 06/17/2023, 05/09/2022, Additional history exists DIABETES HBA1C Q 6 MONTHS 06/18/20252024, 01/12/2024, 11/24/2023, Additional history exists Colorectal Cancer Screening 06/17/2026 FIT-DNA Q 3 years 06/17/2026 06/17/2023 DTAP/TDAP/TD VACCINES (2 - T d or Tdap) 07/30/2028 07/30/2018, 07/12/2009, 09/22/1996 ZOSTER VACCINE Completed 11/02/2020, 10/23, 08/03/2019 PNEUMOCOCCAL VACCINE 50+ YEARS Completed 0 11/07/2021, 06/24/2019, 06/26/2018, Additional history exists RSV VACCINE (60+ or ) Completed 10/24/2023 INFLUENZA VACCINE Completed 06/24/2025, , 05/28/2024, Additional history exists Procedures Procedure Name Priority Date/Time Associated Diagnosis Comments DIABETES EYE EXAM Routine 01/29/2024 12:41 PM CDT MICROALBUMIN/CREATI NINE RATIO, RANDOM UR Routine 01/12/2024 2:46 PM CDT Type 2 diabetes mellitus with other circulatory complication, without long-term current use of insulin (CMS/HCC) Diabetic polyneuropathy associated with type 2 diabetes mellitus (CMS/HCC) LIPID PANEL Routine 01/12/2024 2:46 PM CDT Atherosclerosis of [place] coronary artery of [place] heart with stable angina pectoris HEMOGLOBIN A1C Routine 01/12/2024 2:46 PM CDT Type 2 diabetes mellitus with other circulatory complication, without long-term current use of insulin (CMS/HCC) Diabetic polyneuropathy associated with type 2 diabetes mellitus (CMS/HCC) COLON CANCER SCREEN, STOOL DNA Routine 06/17/2023 3:05 AM CDT Encounter for colorectal cancer screening from Last 3 Months or Most Recently Relevant to Health Maintenance Results * DIABETES EYE EXAM (01/29/2024 12:41 PM CDT) DIABETIC RETINOPATHY SCREENING Negative [facility] us Abstract Provider HEALTH MAINTENANCE Edited Resu lt - Final Performing Organization Address City/[facility]/ZIP Co de Phone Number [facility] CLIA #[id number] [address] [place] [phone] * MICROALBUMIN/CREATININE RATIO, RANDOM UR (01/12/2024 2:46 PM CDT) Creatinine, Urine 125 20 - 320 mg/dL [facility] MICROALBUMIN, URINE 0.6 See Note: mg/dL [facility] Comment: Reference Range: Reference Range Not established MICROALBUMIN/CREAT RATIO, UR 5 <30 mg/g creat [facility] Comment: The ADA defines abnormalities in albumin excretion as follows: Albuminuria Category Result (mg/g creatinine) Normal to Mildly increased <30 Moderately increased 30-299 Severely increased > OR = 300 The ADA recommends that at least two of three specimens collected within a 3-6 month period be abnormal before considering a patient to be within a diagnostic category. Test Performed at: [facility] [id number] [id number] Wanda Xavier MD Urine URINE SPECIMEN OBTAINED BY CLEAN CATCH PROCEDURE / Unknown 01/12/2024 2:46 PM CDT 01/14/2024 3:06 AM CDT Elodia DANIELP URINE ORDERABLES Final Result Performing Organization Address City/[facility]/ZIP Co de Phone Number [facility] [phone] [facility] [address] [address] [address] * (ABNORMAL) HEMOGLOBIN A1C (01/12/2024 2:46 PM CDT) HEMOGLOBIN A1C 7.3(H) <5.7 % of total Hgb [facility] Comment: For someone without known diabetes, a hemoglobin A1c value of 6.5% or greater indicates that they may have diabetes and this should be confirmed with a follow-up test. For someone with known diabetes, a value <7% indicates that their diabetes is well controlled and a value greater than or equal to 7% indicates suboptimal control. A1c targets should be individualized based on duration of diabetes, age, comorbid conditions, and other considerations. Currently, no consensus exists regarding use of hemoglobin A1c for diagnosis of diabetes for children. ESTIMATED AVERAGE GLUCOSE (MG/DL) 163 mg/dL [facility] ESTIMATED AVERAGE GLUCOSE (MMOL/L) 9.0 mmol/L [facility] Comment: This test was performed on the Jak janine c503 platform. Effective 12/08/23, a change in test platforms from the [employer] to the Jak janine c503 may have shifted HbA1c results compared to historical results. Based on laboratory validation testing conducted at [facility], the Jak platform relative to the [employer]ell platform had an average increase in HbA1c value of < or = 0.3%. This difference is within accepted variability established by the National Glycohemoglobin Standardization Program. Note that not all individuals will have had a shift in their results and direct comparisons between historical and current results for testing conducted on different platforms is not recommended. Test Performed at: [facility] [address] [place] [address] Wanda Xavier MD Blood 01/12/2024 2:46 PM CDT 01/14/2024 4:29 AM CDT us Elodia Lee AIR TUBE RELEASER CHEMISTRY ORDERABLES Final Resul t [facility] [phone] [facility] [address] [place] [address] * (ABNORMAL) LIPID PANEL (01/12/2024 2:46 PM CDT) CHOLESTEROL 132 <200 mg/dL [facility] HDL 31(L) > OR = 40 mg/dL [facility] TRIGLYCERIDE 261(H) <150 mg/dL [facility] Comment: If a non-fasting specimen was collected, consider repeat triglyceride testing on a fasting specimen if clinically indicated. Celestino et al. J. of Clin. Lipidol. 2015;9:129-169. LDL CALCULATED 67 mg/dL (calc) [facility] Comment: Reference range: <100 Desirable range <100 mg/dL for primary prevention; <70 mg/dL for patients with CHD or diabetic patients with > or = 2 CHD risk factors. LDL-C is now calculated using the Karishma calculation, which is a validated novel method providing better accuracy than the Friedewald equation in the estimation of LDL-C. Ben SS et al. SAVITA. 2013;310(19): 0453-6803 (http://education.Squareknot/faq/CAH734) CHOL/HDL RATIO 4.3 <5.0 (calc) [facility] TOTAL NON-HDL CHOL(LDL+VLDL) 101 <130 mg/dL (calc) [facility] Comment: For patients with diabetes plus 1 major ASCVD risk factor, treating to a non-HDL-C goal of <100 mg/dL (LDL-C of <70 mg/dL) is considered a therapeutic option. Test Performed at: [facility] [address] [place] [address] Wanda Xavier MD Blood 01/12/2024 2:46 PM CDT 01/14/2024 4:29 AM CDT Elodia Lee AIR TUBE RELEASER CHEMISTRY ORDERABLES Final Resul t [facility] [phone] [facility] [address] [facility] [place] [address] * COLON CANCER SCREEN, STOOL DNA (06/17/2023 3:05 AM CDT) COLOGUARD RESULT Negative Negative [facility] Comment: NEGATIVE TEST RESULT. A negative Cologuard result indicates a low likelihood that a colorectal cancer (CRC) or advanced adenoma (adenomatous polyps with more advanced pre-malignant features) is present. The chance that a person with a negative Cologuard test has a colorectal cancer is less than 1 in 1500 (negative predictive value >99.9%) or has an advanced adenoma is less than 5.3% (negative predictive value 94.7%). These data are based on a prospective cross-sectional study of 10,000 individuals at average risk for colorectal cancer who were screened with both Cologuard and colonoscopy. (Kelsie Ibrahim al, N Engl J Med 2014;370(14):8561-8989) The normal value (reference range) for this assay is negative. COLOGUARD RE-SCREENING RECOMMENDATION: Periodic colorectal cancer screening is an important part of preventive healthcare for asymptomatic individuals at average risk for colorectal cancer. Following a negative Cologuard result, the [place] Cancer Society and U.S. Multi-Society Task Force screening guidelines recommend a Cologuard re-screening interval of 3 years. References: [place] [employer] Society Guideline for Colorectal Cancer Screening: https://www.cancer.org/cancer/tenxk-knzzja-aujiwz/idwqcvpye-tchjyedkg-zrxbprp/ac s-rec ommendations.html.; Francisco J DK, Colin HERCULES, Kimberlyn JuarezK, Colorectal Cancer Screening: Recommendations for Physicians and Patients from the U.S. Multi-Society Task Force on Colorectal Cancer Screening , Am J Gastroenterology 2017; 112:9593-9289. TEST DESCRIPTION: Composite algorithmic analysis of stool DNA-biomarkers with hemoglobin immunoassay. Quantitative values of individual biomarkers are not reportable and are not associated with individual biomarker result reference ranges. Cologuard is intended for colorectal cancer screening of adults of either sex, 45 years or older, who are at average-risk for colorectal cancer (CRC). Cologuard has been approved for use by the U.S. FDA. The performance of Cologuard was established in a cross sectional study of average-risk adults aged 50-84. Cologuard performance in patients ages 45 to 49 years was estimated by sub-group analysis of near-age groups. Colonoscopies performed for a positive result may find as the most clinically significant lesion: colorectal cancer [4.0%], advanced adenoma (including sessile serrated polyps greater than or equal to 1cm diameter) [20%] or non- advanced adenoma [31%]; or no colorectal neoplasia [45%]. These estimates are derived from a prospective cross-sectional screening study of 10,000 individuals at average risk for colorectal cancer who were screened with both Cologuard and colonoscopy. (Kelsie Puckett, N Engl J Med 2014;370(14):9080-2689.) Cologuard may produce a false negative or false positive result (no colorectal cancer or precancerous polyp present at colonoscopy follow up). A negative Cologuard test result does not guarantee the absence of CRC or advanced adenoma (pre-cancer). The current Cologuard screening interval is every 3 years. ([place] Cancer Society and U.S. Multi-Society Task Force). Cologuard performance data in a 10,000 patient pivotal study using colonoscopy as the reference method can be accessed at the following location: www.[employer]/results. Additional description of the Cologuard test process, warnings and precautions can be found at www.[employer] TechnologyogCooleafrd.[address]. Stool STOOL SPECIMEN / Unknown 06/17/2023 3:05 AM CDT 06/18/2023 11:58 PM CDT us Elodia Lee AIR TUBE RELEASER BODY FLUIDS AND STOOLS Final Res ult [employer] CLIA # [id number] [address] , [address] [place] [address] from Last 3 Months or Most Recently Relevant to Health Maintenance Insurance [facility] [place] [address] [place] [address] [employer] [facility] [place] [address] [place] [address] [employer]
--- OUTSIDE RECORDS SUMMARY | 2025-08-11 15:16 | XMS_ITS | Encounter Summary ---
Author Organization [facility] Address [address] [place] [address] Care Team Providers Care Stave Hewer Name Role Phone Katharine Back MD Primary Care Provider [phone] Encounter Details Date Type Department Care Team (Late st Contact Info) Description 12/22/2021 Digital Self COVID-1 9 Monitoring STL ABSTRACTION [...] on filedocumented in this encounter Care Teams Stave Hewer Relationship Specialty Start Date End Date Katharine Back MD [address] [facility] [address] [place] [address] PCP - General Family Practice 03/18/24 09/26/24 documented as of this encounter
--- OUTSIDE RECORDS SUMMARY | 2025-08-11 15:16 | XMS_ITS | Patient Health Record ---
Author Organization [facility] Address [address] [place] [address] Care Team Providers Care Pie Topper Name Role Phone Brant Oviedo MD Primary Care Provider Stanley Hallmeetaedvin Raymundo Unavailable [phone] Reason For Referral No Information Medications Medication SIG (Take, Route, Frequency, Duration) Notes Start Date End Date Status Tamsulosin HCl 0.4 MG Capsule 1 capsule Orally Once a day Active Doxepin HCl 75 MG Capsule 1 capsule at b edtime Orally Once a day Active Aspirin Adult Low Dose 81 MG Tablet Delayed Release 1 tablet Orally Once a day Active Lyrica 300 MG Capsule 1 capsule in the e vening 1 to 3 hours before bedtime Orally Once a day Active Simvastatin 40 MG Tablet 1 tablet in the evening Orally Once a day Active Citalopram Hydrobromide 40 MG Tablet 0.5 tablet Orally Once a day Active glipiZIDE 5 MG Tablet 1 tablet 30 minute s before breakfast Orally twice daily Active metFORMIN HCl 1000 MG Tablet 1 tablet with a meal Orally twice a day Active Lisinopril-hydroCHLOROthiaz pao 20-25 MG Tablet 1 tablet Orally Once a day Active Isosorbide Mononitrate ER 60 MG Tablet Extended Release 24 Hour 1 tablet in the morning Orally Once a day Active Social History Tobacco Use: Social History Observation Description Date Details (start date - stop date) Never Smoker NA - NA Social History Tobacco Use: Social Info Question Answer Notes xTobacco Use/Smoking Are you a nonsmoker Plan Of Treatment Pending Test Test Name Order Date US Doppler Aorta, IVC, [id number] 01/16 US Doppler Aorta, IVC, [id number] 01/16 Insurance Providers Payer Name Payer Address Payer Phone Subscriber Number Group Number Insured Name Patient Relationship to Insured Coverage Start Date Coverage End Date VACCN [employer]UM [address] [place] [phone] [id number] GREER CALIX Self - patient is the insured Medical (General) History Medical History History ICD Code CAD HTN DM hyper cholestrolemia Surgical History Surgery Date(Month/Year) CABG x #
--- OUTSIDE RECORDS SUMMARY | 2025-08-11 15:16 | XMS_ITS | Encounter Summary ---
Author Organization [facility] Address [address] [place] [address] Care Team Providers Care Gold Frame Assembler Name Role Phone Katharine Back MD Primary Care Provider Encounter Details Date Type Department Care Team (Late st Contact Info) Description 12/23/2021 Digital Self COVID-1 9 Monitoring STL ABSTRACTION [...] on filedocumented in this encounter Care Teams Gold Frame Assembler Relationship Specialty Start Date End Date Katharine Back MD [address] [facility] [address] [place] [phone] PCP - General Family Practice 03/18/24 09/26/24 documented as of this encounter
--- OUTSIDE RECORDS SUMMARY | 2025-08-11 15:16 | XMS_ITS | Encounter Summary ---
Author Organization [facility] Address [address] [place] [address] Care Team Providers Care Maori Physiotherapist Name Role Phone Katharine Back MD Primary Care Provider Encounter Details Date Type Department Care Team (Late st Contact Info) Description 12/19/2021 Digital Self COVID-1 9 Monitoring STL ABSTRACTION [...] on filedocumented in this encounter Care Teams Maori Physiotherapist Relationship Specialty Start Date End Date Katharine Back MD [address] [facility] [address] [place] [address] PCP - General Family Practice 03/18/24 09/26/24 documented as of this encounter
--- OUTSIDE RECORDS SUMMARY | 2025-08-11 15:16 | XMS_ITS | Encounter Summary ---
Author Organization [facility] Address [address] [place] [address] Care Team Providers Care Wheat Combine Driver Name Role Phone Katharine Back MD Primary Care Provider [phone] Encounter Details Date Type Department Care Team [...] on filedocumented in this encounter Care Teams Wheat Combine Driver Relationship Specialty Start Date End Date Katharine Back MD [address] [facility] [address] [place] [address] PCP - General Family Practice 03/18/24 09/26/24 documented as of this encounter
--- OUTSIDE RECORDS SUMMARY | 2025-08-11 15:16 | XMS_ITS | Encounter Summary ---
Author Organization [facility] Address [address] [place] [address] Care Team Providers Care Body Cleaner Name Role Phone Katharine Back MD Primary [...] on filedocumented in this encounter Care Teams Body Cleaner Relationship Specialty Start Date End Date Katharine Back MD [address] [facility] [address] [place] [phone] PCP - General Family Practice 03/18/24 09/26/24 documented as of this encounter
--- OUTSIDE RECORDS SUMMARY | 2025-08-11 15:16 | XMS_ITS | Encounter Summary ---
Author Organization [facility] Address [address] [place] [address] Care Team Providers Care Environmental Adviser Name Role Phone Katharine Back MD Primary Care Provider Encounter Details Date Type Department Care Team (Late st Contact Info) Description 12/20/2021 Digital Self COVID-1 9 Monitoring STL ABSTRACTION [...] on filedocumented in this encounter Care Teams Environmental Adviser Relationship Specialty Start Date End Date Katharine Back MD [address] [facility] [address] [place] [address] PCP - General Family Practice 03/18/24 09/26/24 documented as of this encounter
--- OUTSIDE RECORDS SUMMARY | 2025-08-11 15:16 | XMS_ITS | Encounter Summary ---
Author Organization [facility] Address [address] [place] [address] Care Team Providers Care Prescription Benefit Specialist Name Role Phone Katharine Back MD Primary Care Provider [phone] Encounter Details Date Type Department Care Team [...] on filedocumented in this encounter Care Teams Prescription Benefit Specialist Relationship Specialty Start Date End Date Katharine Back MD [address] [facility] [address] [place] [address] PCP - General Family Practice 03/18/24 09/26/24 documented as of this encounter
--- OUTSIDE RECORDS SUMMARY | 2025-08-11 15:17 | XMS_ITS | Encounter Summary ---
Author Organization [facility] Address [address] [place] [address] Care Team Providers Care Poured Pipe Maker Name Role Phone Katharine Back MD Primary [...] on filedocumented in this encounter Care Teams Poured Pipe Maker Relationship Specialty Start Date End Date Katharine Back MD [address] [facility] 60 [place] [address] PCP - General Family Practice 03/18/24 09/26/24 documented as of this encounter
--- OUTSIDE RECORDS SUMMARY | 2025-08-11 15:17 | XMS_ITS | Patient Health Record ---
Author Organization [facility] Address [address] [place] [address] Care Team Providers Care Care Clinician Name Role Phone Anna Brunner Primary Care Provider Reason For Referral No Information Medications Medication SIG (Take, Route, Frequency, Duration) Notes Start Date End Date Status Doxepin HCl 50 MG as directed qd Active metFORMIN HCl tablet 1 tablet BID Active Bactrim DS 800-160 MG Tablet 1 tablet Orally Twice a day; Duration: 10 day(s) 06/03/2018 Active Aspirin 325 MG Tablet 1 tablet Orally On ce a day; Duration: 30 day(s) Active Lisinopril 10 Tablet 1 tablet Orally qd; Duration: 30 Active Adak 7.5-325 MG Tablet 1 tablet as need ed Orally Twice a day; Duration: 1 as needed 04/22/2016 Active Niacin Active Atenolol 50 MG TABLET 0.5 (1/2) TABLET Q D (every day) ORAL QD (every day) 08/23/2009 Active Clindamycin HCl 300 MG Capsule 1 capsule Orally TID; Duration: 7 days 01/22/2018 Not-Taking NIFEdipine 60 MG Tablet Extended Release Orally Active Lyrica 25 MG Capsule 2 capsules Orally T hree times a day Active Simvastatin 80 MG Tablet 1 tablet in the evening Orally Once a day Active Tamsulosin HCl 0.4 MG Capsule Extended Release Orally Act sarahy Immunizations Vaccine Route Administration Date Status Comme nts Boostrix Tdap Unknown 09/02/2013 Administered Influenza Unknown 09/13/2015 Administered given a [employer] reens Influenza Unknown 08/17/2016 Administered Influenza Unknown 06/26/2018 Administered Prevnar 13 Unknown 06/26/2018 Administered Social History Tobacco Use: Social History Observation Description Date Details (start date - stop date) Never Smoker NA - NA Social History Tobacco Use: Social Info Question Answer Notes Tobacco Use/Smoking Status: nonsmoker Section Notes: He is a . , Dionne murillo. His son, age 30, is an officer in the army, which is stressful for him. He is a . Ev. His son, age 30, is an officer in the army, which is stressful for him. 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 Ev. His son, age 30, is an officer in the army, which is stressful for him. 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 , Dionne murillo. He is a . Ev. His son, age 30, is an officer in the army, which is stressful for him. jesus Escobedo He is a . Ev. His son, age 30, is an officer in the army, which is stressful for him. jesus Escobedo He is a . Ev. His son, age 30, is an officer in the army, which is stressful for him. 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 Ev. His son, age 30, is an officer in the army, which is stressful for him. 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 Ev. His son, age 30, is an officer in the army, which is stressful for him. 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 Ev. His son, age 30, is an officer in the army, which is stressful for him. 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 , Ev. His son, age 30, is an officer in the army, which is stressful for him. 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 , Ev. His son, age 30, is an officer in the army, which is stressful for him. [place] He is a . , Dionne thy. His son, age 30, is an officer in the army, which is stressful for him. He is a . , Ka thy. He is a . , Ka thy. He is a . , Ka thy. He is a . , Ka thy. He is a . , Ka thy. He is a . , Ka thy. He is a . He is a . He is a . He is a . He is a . , Ev. His son, age 30, is an officer in the army, which is stressful for him. 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 , Ev. His son, age 30, is an officer in the army, which is stressful for him. 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 He is a . Problems Problem Type SNOMED Code ICD Code Onset Dates Problem Status W/U Status Risk Notes Problem Hypertension (53962318) Hypertension (I10) Active confirmed Problem Depression (423109111) Depression (F32.9) Active confirmed Problem Peripheral neuropathy (850729756) Peripheral neuropathy (G62.9) Active confirmed Problem Diabetes mellitus type 2 (disorder) (86379630) DM2 (diabetes mellitus, type 2) (E11.9) Active confirmed Problem Localized, primary osteoarthritis of the pelvic region and thigh (920975824) Osteoarthritis of right hip (M16.11) Active confirmed Problem Heart disease (26019224) Heart disease (I51.9) Active confirmed Problem Skin sensation disturbance (30529410) Right hand paresthesia (R20.2) Active confirmed Problem Seasonal allergic rhinitis (397362153) Seasonal allergic rhinitis, unspecified allergic rhinitis trigger (J30.2) Active confirmed Plan Of Treatment No Information Insurance Providers Payer Name Payer Address Payer Phone Subscriber Number Group Number Insured Name Patient Relationship to Insured Coverage Start Date Coverage End Date MEDICARE [address] [place] [address] [id number] German Carreon Self - patient is the insured 5 Medications Administered Medication Instructions Date of Administration Dosage Notes Celestone (Betamethasone Sodium Phosphate) 01/13/2013 1 mL combo with depo-medrol Celestone (Betamethasone Sodium Phosphate) 08/03/2015 1 mL Celestone (Betamethasone Sodium Phosphate) 06/19/2016 1 mL Celestone (Betamethasone Sodium Phosphate) 01/08/2017 1.0 mL Depo Medrol 80mg 01/13/2013 1 mL combo wi th celestone Depo Medrol 80mg 08/03/2015 1 mL Depo Medrol 80mg 06/19/2016 1 mL Depo Medrol 80mg 01/08/2017 1.0 mL Medical (General) History Medical History History ICD Code CAD Melanoma X2, back Depression Hyperlipidemia December 2016 - normal CT brain for dizzine ss March 2017 - admitted to [facility] for sepsis and right lower extremety cellulitis. normal echo and RLE venous doppler May 2017 - essentially normal MRI brain , no CVA Surgical History Surgery Date(Month/Year) right shoulder surgery for rotator cuff BPH surgery, benign 20 years ago Triple bypass surgery in [place], [place] 2010 Hospitalization History Reason Date(Month/Year) right leg cellulitis 2016
== END 2025-08-11 13:23 | disposition home or self-care (01) ==
PROVIDERS: Emergency Provider Emergency Medicine; PCP Family Medicine
DX: S62.633A Displaced fracture of distal phalanx of left middle finger, initial encounter for closed fracture (principal); S52.125A Nondisplaced fracture of head of left radius, initial encounter for closed fracture; W54.0XXA Bitten by dog, initial encounter; S61.313A Laceration without foreign body of left middle finger with damage to nail, initial encounter; Z79.82 Long term (current) use of aspirin; Z79.84 Long term (current) use of oral hypoglycemic drugs; Z79.02 Long term (current) use of antithrombotics/antiplatelets
CPT/HCPCS: 12002; 73080; 73130; 90471; 90715; 99283; J3490

== ENCOUNTER 2025-08-22 12:25 | Day surgery (SDC) | payer OTHER, SELFPAY ==
--- OUTSIDE RECORDS SUMMARY | 2017-04-06 07:04 | XMS_ITS | Continuity of Care Document ---
Author Organization [facility] Address [address] [place] [phone] Phone Care Team Providers Care Filenet Architect Name Role Phone MD Joyce, Ethan Unavailable Unavailable Procedures Procedure Date H Echo Advance Directives Directive Yes / No Effective Date File Name No Information Encounters Encounter Description Practice Location Reason(s) For Visit Diagnoses Date Provider Providers Copied on Encounter [facility] [place], [address] [place] [address], [id number], tel:[phone] [place] No Information 7 MD Ethan Cook. [address] [place] [address], [id number] , . tel:[phone] [facility], [address] [place] [address], [id number], tel:[phone] [place] No Information 7 MD Ethan Cook. [address] [place] [address], [id number] , . tel:[phone] Referring Provider: Ethan Cook MD, [address] [place] [address], [id number] . tel:[phone] Family History Family Member Type Diagnosis Age At Onset No Information Payers Payer name Insurance type Covered constitution party ID Authoriza tion(s) No Information Social History [...]
--- NOTE | 2025-08-22 12:40 | XR_ITS ---
WS: [id number] Exam: XR hand LT min 3V* [id number] Date/Time of Exam: 08/22/2025 1:02 PM Reason For Exam: trauma DLP: There is a comminuted fracture of the distal end of the third distal phalanx with separation and displacement of fracture fragments. Extensive soft tissue laceration noted in this region. No other fractures of the hand are identified. The joints are preserved. Ring obscures parts of the fourth proximal phalanx. XR/XR hand LT min 3V* [id number] IMPRESSION: 1. Comminuted displaced fracture of the distal end of the third distal phalanx with associated soft tissue laceration.
[2025-08-22 12:42] VITALS: BP 114/74; PULSE 81; TEMP 36.7; O2SAT 93; BMI 38.5
--- OUTSIDE RECORDS SUMMARY | 2025-08-22 12:54 | XMS_ITS | Clinical Summary ---
Author Organization [facility] Address [address] [facility] [address] [place] [address] Phone Care Team Providers Care Cotton Tier Name Role Phone Unavailable Primary Care Provider [...] Pulse Oximeter reading goes below 90% call [employer] at [phone] or if you are in distress, please [...] - repeat 3 monthsOct 2018 Entered By: AKZ COATES Comment: Chest CT 03/10 stable repeat [...] disorder 12/10/2022 Bilateral pseudophakia 12/10/2022 Atherosclerosis of [place] co ronary artery of [place] heart with stable angina pectoris 12/10/2022 Type [...] Influenza, Unspecified Formulation 05/23,07/07/2016,06/26/2015,06/20,07/21/2013,07/03/2012,07/24/2011 ,07/06/2010,09/22/2009,09/20/2009,05/2009,07/22/2008,09/04/2007, 6,06/28/2005,08/01/2004,07/22/2003,09/2001,09/02/2001 Novel [id number], All Formulations 07/06/2010 PREVNAR (PCV13) pneumococcal 13-valent [...] EXAM 01/28/2025 01/29/2024 COVID-19 Vaccine (7 - 2024-2 6 season) 2025 08/11/2024, 06/17/2023, 05/09/2022, Additional history [...] Routine 01/12/2024 2:46 PM CDT Atherosclerosis of [place] coronary artery of [place] heart with stable angina pectoris HEMOGLOBIN A1C [...] 12:41 PM CDT) DIABETIC RETINOPATHY SCREENING Negative [facility] us Abstract Provider HEALTH MAINTENANCE Edited Resu lt - Final Performing Organization Address City/[facility]/ZIP Co de Phone Number [facility] CLIA #[id number] [address] [place] [address] * MICROALBUMIN/CREATININE RATIO, RANDOM UR (01/12/2024 2:46 [...] within a diagnostic category. Test Performed at: [facility] [address] [address] Wanda Xavier MD Urine URINE SPECIMEN OBTAINED BY CLEAN CATCH PROCEDURE / Unknown 01/12/2024 2:46 PM CDT 01/14/2024 3:06 AM CDT Elodia DANIELP URINE ORDERABLES Final Result Performing Organization Address City/[facility]/ZIP Co de Phone Number [facility] [phone] [facility] [address] [address] [facility] [address] * (ABNORMAL) HEMOGLOBIN A1C (01/12/2024 2:46 PM CDT) HEMOGLOBIN A1C 7.3(H) <5.7 % of total Hgb [facility] Comment: For someone without known diabetes, [...] children. ESTIMATED AVERAGE GLUCOSE (MG/DL) 163 mg/dL [facility] ESTIMATED AVERAGE GLUCOSE (MMOL/L) 9.0 mmol/L [facility] Comment: This test was performed on the Jak janine c503 platform. Effective 12/08/23, a change in test platforms from the Howell Microchip Specialist to the Jak janine c503 may have shifted HbA1c results compared to historical results. Based on laboratory validation testing conducted at [facility], the Jak platform relative to the Howell [...] platforms is not recommended. Test Performed at: [facility] [address] [place] [address] Wanda Xavier MD Blood 01/12/2024 2:46 PM CDT 01/14/2024 4:29 AM CDT us Elodia Lee INSPECTOR PUBLICATIONS CHEMISTRY ORDERABLES Final Resul t [facility] [phone] [facility] [address] [place] [address] * (ABNORMAL) LIPID PANEL (01/12/2024 2:46 PM CDT) CHOLESTEROL 132 <200 mg/dL [facility] HDL 31(L) > OR = 40 mg/dL [facility] TRIGLYCERIDE 261(H) <150 mg/dL [facility] Comment: If a non-fasting specimen was collected, consider repeat triglyceride testing on a fasting specimen if clinically indicated. Celestino et al. J. of Clin. Lipidol. 2015;9:129-169. LDL CALCULATED 67 mg/dL (calc) [facility] Comment: Reference range: <100 Desirable range <100 mg/dL for primary prevention; <70 mg/dL for patients with CHD or diabetic patients with > or = 2 CHD risk factors. LDL-C is now calculated using the Karishma calculation, which is a validated novel method providing better accuracy than the Friedewald equation in the estimation of LDL-C. Ben SS et al. SAVITA. 2013;310(19): 2123-2465 (http://education.Petnet/faq/JRY470) CHOL/HDL RATIO 4.3 <5.0 (calc) [facility] TOTAL NON-HDL CHOL(LDL+VLDL) 101 <130 mg/dL (calc) [facility] Comment: For patients with diabetes plus 1 major ASCVD risk factor, treating to a non-HDL-C goal of <100 mg/dL (LDL-C of <70 mg/dL) is considered a therapeutic option. Test Performed at: [facility] [address] [place] [address] Wanda Xavier MD Blood 01/12/2024 2:46 PM CDT 01/14/2024 4:29 AM CDT Elodia Lee INSPECTOR PUBLICATIONS CHEMISTRY ORDERABLES Final Resul t [facility] [phone] [facility] [address] [facility] [place] [address] * COLON CANCER SCREEN, STOOL DNA (06/17/2023 3:05 AM CDT) COLOGUARD RESULT Negative Negative [facility] Comment: NEGATIVE TEST RESULT. A negative [...] (Kelsie Ibrahim al, N Engl J Med 2014;370(14):4341-7658) The normal value (reference range) for this assay is negative. COLOGUARD RE-SCREENING RECOMMENDATION: Periodic colorectal cancer screening is an important part of preventive healthcare for asymptomatic individuals at average risk for colorectal cancer. Following a negative Cologuard result, the [place] Cancer Society and U.S. Multi-Society Task Force screening guidelines recommend a Cologuard re-screening interval of 3 years. References: [place] [employer] Society Guideline for Colorectal Cancer Screening: https://www.cancer.org/cancer/zblrn-uixhcm-xpxgmb/iscrfpqbk-frsrppbgo-utnmtjw/ac s-rec ommendations.html.; Francisco J DK, Colin HERCULES, Kimberlyn JuarezK, Colorectal Cancer Screening: Recommendations for Physicians and Patients from the U.S. Multi-Society Task Force on Colorectal Cancer Screening , Am J Gastroenterology 2017; 112:2559-4403. TEST DESCRIPTION: Composite algorithmic analysis of stool [...] colonoscopy. (Kelsie Puckett, N Engl J Med 2014;370(14):2429-7092.) Cologuard may produce a false negative or false positive result (no colorectal cancer or precancerous polyp present at colonoscopy follow up). A negative Cologuard test result does not guarantee the absence of CRC or advanced adenoma (pre-cancer). The current Cologuard screening interval is every 3 years. ([place] Cancer Society and U.S. Multi-Society Task Force). Cologuard performance data in a 10,000 patient pivotal study using colonoscopy as the reference method can be accessed at the following location: www.[employer]/results. Additional description of the Cologuard test process, warnings and precautions can be found at www.[facility].comrd.seniorshelf.com. Stool STOOL SPECIMEN / Unknown 06/17/2023 3:05 AM CDT 06/18/2023 11:58 PM CDT us Elodia Lee INSPECTOR PUBLICATIONS BODY FLUIDS AND STOOLS Final Res ult [facility] [place] CLIA # [id number] [address] , [address] [place] [address] from Last 3 Months or Most Recently Relevant to Health Maintenance Insurance [facility] [place] [address] [address] [facility] [place] [address] [place] [address] [employer]
--- OUTSIDE RECORDS SUMMARY | 2025-08-22 12:54 | XMS_ITS | Encounter Summary ---
Author Organization [facility] Address [address] [place] [address] Care Team Providers Care Street Light Cleaner Name Role Phone Katharine Back MD [...] on filedocumented in this encounter Care Teams Street Light Cleaner Relationship Specialty Start Date End Date Katharine Back MD [address] [facility] [address] [place] [address] PCP - General Family Practice 03/18/24 09/26/24 documented as of this encounter
--- OUTSIDE RECORDS SUMMARY | 2025-08-22 12:54 | XMS_ITS | Encounter Summary ---
Author Organization [facility] Address [address] [place] [address] Care Team Providers Care Director Of Scout Work Name Role Phone Katharine Back MD Primary [...] on filedocumented in this encounter Care Teams Director Of Scout Work Relationship Specialty Start Date End Date Katharine Back MD [address] [facility] [address] [place] [address] PCP - General Family Practice 03/18/24 09/26/24 documented as of this encounter
--- OUTSIDE RECORDS SUMMARY | 2025-08-22 12:54 | XMS_ITS | Encounter Summary ---
Author Organization [facility] Address [address] [place] [address] Care Team Providers Care Mule Tender Name Role Phone Katharine Back MD Primary [...] on filedocumented in this encounter Care Teams Mule Tender Relationship Specialty Start Date End Date Katharine Back MD [address] [facility] [address] [place] [address] PCP - General Family Practice 03/18/24 09/26/24 documented as of this encounter
--- OUTSIDE RECORDS SUMMARY | 2025-08-22 12:54 | XMS_ITS | Encounter Summary ---
Author Organization [facility] Address [address] [place] [address] Care Team Providers Care Vertical Roll Operator Name Role Phone Katharine Back MD Primary [...] on filedocumented in this encounter Care Teams Vertical Roll Operator Relationship Specialty Start Date End Date Katharine Back MD [address] [facility] 60 [place] [address] PCP - General Family Practice 03/18/24 09/26/24 documented as of this encounter
--- OUTSIDE RECORDS SUMMARY | 2025-08-22 12:54 | XMS_ITS | Encounter Summary ---
Author Organization [facility] Address [address] [place] [address] Care Team Providers Care Academic Affairs Coordinator Name Role Phone Katharine Back MD Primary Care Provider [phone] Encounter Details Date Type Department Care Team [...] on filedocumented in this encounter Care Teams Academic Affairs Coordinator Relationship Specialty Start Date End Date Katharine Back MD [address] [facility] [address] [place] [address] PCP - General Family Practice 03/18/24 09/26/24 documented as of this encounter
--- OUTSIDE RECORDS SUMMARY | 2025-08-22 12:54 | XMS_ITS | Encounter Summary ---
Author Organization [facility] Address [address] [place] [address] Care Team Providers Care Mill Supervisor Name Role Phone Katharine Back MD Primary Care Provider [phone] Encounter Details Date Type Department Care Team [...] on filedocumented in this encounter Care Teams Mill Supervisor Relationship Specialty Start Date End Date Katharine Back MD [address] [facility] 60 [place] [address] PCP - General Family Practice 03/18/24 09/26/24 documented as of this encounter
--- OUTSIDE RECORDS SUMMARY | 2025-08-22 12:54 | XMS_ITS | Encounter Summary ---
Author Organization [facility] Address [address] [place] [address] Care Team Providers Care City Routeman Name Role Phone Katharine Back MD Primary [...] on filedocumented in this encounter Care Teams City Routeman Relationship Specialty Start Date End Date Katharine Back MD [address] [facility] 60 [place] [address] PCP - General Family Practice 03/18/24 09/26/24 documented as of this encounter
--- OUTSIDE RECORDS SUMMARY | 2025-08-22 12:54 | XMS_ITS | Encounter Summary ---
Author Organization [facility] Address [address] [place] [address] Care Team Providers Care Grade Teacher Name Role Phone Katharine Back MD Primary [...] on filedocumented in this encounter Care Teams Grade Teacher Relationship Specialty Start Date End Date Katharine Back MD [address] [facility] [address] [place] [address] PCP - General Family Practice 03/18/24 09/26/24 documented as of this encounter
--- OUTSIDE RECORDS SUMMARY | 2025-08-22 12:54 | XMS_ITS | Encounter Summary ---
Author Organization [facility] Address [address] [place] [address] Care Team Providers Care Lacrosse Player Name Role Phone Katharine Back MD Primary [...] on filedocumented in this encounter Care Teams Lacrosse Player Relationship Specialty Start Date End Date Katharine Back MD [address] [facility] [address] [place] [address] PCP - General Family Practice 03/18/24 09/26/24 documented as of this encounter
--- OUTSIDE RECORDS SUMMARY | 2025-08-22 12:54 | XMS_ITS | Encounter Summary ---
Author Organization [facility] Address [address] [place] [address] Care Team Providers Care Centrifuge Operator Name Role Phone Katharine Back MD [...] on filedocumented in this encounter Care Teams Centrifuge Operator Relationship Specialty Start Date End Date Katharine Back MD [address] [facility] [address] [place] [address] PCP - General Family Practice 03/18/24 09/26/24 documented as of this encounter
--- NOTE | 2025-08-22 13:03 | W.ED.EXTPRO ---
HPI - Extremity Problem General: Chief complaint: Extremity Injury, Upper Stated complaint: L hand middle finger pain, redness, from dog bite Time Seen by Provider: 08/22/25 13:02 History of Present Illness: 75-year-old man who presents emergency room with continued finger pain. Worsening swelling. He was seen in the emergency room at 10 days for a dog bite. The dog had taken large portions of tissue away and he had a fracture on the tip of his finger. He finished antibiotics yesterday and says pain and swelling have continued. Related Data Home Medications ?Medication ?Instructions ?Recorded ?Confirmed aspirin 81 mg tablet,delayed 81 mg PO DAILY 07/13/21 08/10/25 release atenolol 100 mg tablet 50 mg PO DAILY 07/13/21 08/10/25 pregabalin 150 mg capsule 150 mg PO BEDTIME 07/13/21 08/10/25 simvastatin 80 mg tablet 80 mg PO DAILY 07/13/21 08/10/25 tamsulosin 0.4 mg capsule 0.4 mg PO DAILY 07/13/21 08/10/25 alpha lipoic acid 600 mg capsule 600 mg PO BID 01/21/22 08/10/25 glipizide 5 mg tablet 5 mg PO BID 01/21/22 08/10/25 fluticasone propionate 50 2 spray intranasal DAILY PRN 08/07/23 08/10/25 mcg/actuation nasal allergy symptoms spray,suspension (Allergy Relief (fluticasone)) doxepin 75 mg capsule 150 mg PO DAILY 04/07/24 08/10/25 metformin 1,000 mg tablet 1,000 mg PO BID 06/10/24 08/10/25 Held on 06/25/25. Instructions: Resume on 06/27/25. pregabalin 200 mg capsule 200 mg PO BEDTIME 06/10/24 08/10/25 finasteride 5 mg tablet 5 mg PO DAILY 10/01/24 08/10/25 Previous Rx's ?Medication ?Instructions ?Recorded CAM walker #1 ea 04/07/25 custom orthotic inserts A5513 #2 ea 04/19/25 1 pair Diabetic shoes- A5500 #1 ea 05/25/25 clopidogrel 75 mg tablet 75 mg PO DAILY #90 tabs 07/22/25 isosorbide mononitrate 60 mg 90 mg (1.5 x 60 mg) PO DAILY #135 10/31/25 tablet,extended release 24 hr tabs lisinopril 10 1 tab PO DAILY #90 tabs 07/22/25 mg-hydrochlorothiazide 12.5 mg tablet ranolazine 1,000 mg 1,000 mg PO BID #270 tabs 07/22/25 tablet,extended release,12 hr amoxicillin 500 mg-potassium 1 tab PO BID #14 tabs 08/11/25 clavulanate 125 mg tablet (Augmentin) amoxicillin 875 mg-potassium 1 tab PO BID 10 days #20 tabs 08/22/25 clavulanate 125 mg tablet hydrocodone 5 mg-acetaminophen 325 1 tab PO Q8H PRN pain #14 tabs 08/22/25 mg tablet polyethylene glycol 3350 17 17 g PO DAILY #510 grams 08/22/25 gram/dose oral powder (Miralax) Allergies Allergy/AdvReac Type Severity Reaction Status Date / Time No Known Allergies Allergy Verified 08/22/25 12:48 Review of Systems Narrative: Constitutional symptoms: Negative except as documented in HPI. Skin symptoms: Negative except as documented in HPI. Eye symptoms: Negative except as documented in HPI. ENMT symptoms: Negative except as documented in HPI. Respiratory symptoms: Negative except as documented in HPI. Cardiovascular symptoms: Negative except as documented in HPI. Gastrointestinal symptoms: Negative except as documented in HPI. Genitourinary symptoms: Negative except as documented in HPI. Musculoskeletal symptoms: Negative except as documented in HPI. Neurologic symptoms: Negative except as documented in HPI. Psychiatric symptoms: Negative except as documented in HPI. Endocrine symptoms: Negative except as documented in HPI. PFSH ED PFSH: Medical History (Updated 08/22/25 @ 15:39 by Dariela Price MD) History of nonmelanoma skin cancer History of malignant melanoma Atherosclerotic heart disease of [place] coronary artery with unspecified angina pectoris Benign prostatic hyperplasia with lower urinary tract symptoms Carpal tunnel syndrome Hypertension Hyperlipidemia Major depressive disorder Male erectile dysfunction Multiple nodules of lung PTSD (post-traumatic stress disorder) Type 2 diabetes mellitus Alcohol abuse Opioid abuse Malignant neoplasm of skin Thoracic aortic aneurysm without rupture Surgical History Hx of coronary artery bypass surgery Social History Smoking and tobacco/nicotine status: never used tobacco/nicotine Alcohol intake: former Physical Exam Narrative: EXAM NARRATIVE: General: Alert, no acute distress. Skin: warm and dry Head: Normocephalic Neck: Trachea midline Eye: Extraocular movements are intact. Ears, nose, mouth and throat: Oral mucosa moist Respiratory: Respirations are non-labored Musculoskeletal: Swelling redness to the distal end of the left third digit. See photo below. Does appear to maybe have some fluid collection below the fingernail or where it used to be. Gastrointestinal: Abdomen does not appear distended Neurological: Alert and oriented, No focal neurological deficit observed. Psychiatric: Cooperative, appropriate mood & affect. Course Vital Signs: Vital signs: Vital Signs Temperature 97.9 F 08/22/25 21:16 Pulse Rate 75 08/22/25 21:16 Respiratory Rate 18 08/22/25 21:16 Blood Pressure 141/90 08/22/25 21:16 Pulse Oximetry 91 08/22/25 21:16 Oxygen Delivery Me thod Room Air 08/22/25 21:16 MDM - Extremity (Nontraumatic) Medical Decision Making Medical decision making Patient's reason for coming to the emergency room: Continued finger pain and swelling after dog bite Social determinants: Patient is retired and . I reviewed the patient's medical record. Patient had been placed on Augmentin and treated here in the emergency room recently. I reviewed the patient's current home meds Patient not currently on any anticoagulation. Alternate historians: None Differential diagnosis: including but not limited to and based on the above HPI, review of systems and physical exam: Concern for abscess and sepsis. Basic lab work ordered to evaluate for inflammation or a high white count. Orders placed to evaluate differential diagnosis based on the above differential, HPI and physical exam X-ray of the left hand: Comminuted displaced fracture of the distal end of the third distal phalanx with associated soft tissue laceration. This was reviewed and interpreted by myself the emergency room physician. I also reviewed the radiology report. Lab Review: Laboratory results were reviewed and interpreted by myself the emergency room physician. No leukocytosis. ESR and CRP are normal. Consultation: I spoke with Dr. Eid who is on for orthopedics. He is taking the patient to the OR incision and drainage and possible revision. Assessment and plan: Dog bite Finger infection ? IV Zosyn in the emergency room. - Discharged home - Discussed plan with patient. Answered any questions. - Evaluation and treatment of this problem were appropriate in the emergency setting. Lab Data 08/22/25 13:05 08/22/25 13:05 Radiology Impressions Hand X-Ray 08/22/25 12:40 IMPRESSION: 1. Comminuted displaced fracture of the distal end of the third distal phalanx with associated soft tissue laceration. Laboratory Results WBC 8.21 10^3/uL (3.29-11.43) 08/22/25 13:05 RBC 5.28 10^6/uL (3.85-5.65) 08/22/25 13:05 Hgb 16.20 g/dL (11.27-16.99) 08/22/25 13:05 Hct 48.3 % (37-53) 08/22/25 13:05 MCV 91.5 fl (82-101) 08/22/25 13:05 MCH 30.7 pg (27-33) 08/22/25 13:05 MCHC 33.5 g/dL (30-55) 08/22/25 13:05 RDW 12.8 % (12.1-15.1) 08/22/25 13:05 Plt Count 191 10^3/cmm (157-399) 08/22/25 13:05 MPV 9.7 fL (7.4-10.4) 08/22/25 13:05 Neut % (Auto) 59.9 % 08/22/25 13:05 Lymph % (Auto) 28.5 % 08/22/25 13:05 [place] % (Auto) 7.8 % 08/22/25 13:05 Eos % (Auto) 3.0 % 08/22/25 13:05 Baso % (Auto) 0.7 % 08/22/25 13:05 Neut # (Auto) 4.91 10^3/uL (1.8-7.7) 08/22/25 13:05 Lymph # (Auto) 2.3 10^3/uL (0.8-4.8) 08/22/25 13:05 [place] # (Auto) 0.6 10^3/uL (0.2-0.9) 08/22/25 13:05 Eos # (Auto) 0.3 10^3/uL (0.0-0.8) 08/22/25 13:05 Baso # (Auto) 0.1 10^3/uL (0.0-0.1) 08/22/25 13:05 Nucleated RBC % (auto) 0 % 08/22/25 13:05 Nucleated RBCs # 0.0 /100WBC 08/22/25 13:05 ESR 1 mm/hr (0-10) 08/22/25 13:05 Sodium 137 mmol/L (136-145) 08/22/25 13:05 Potassium 4.4 mmol/L (3.5-5.1) 08/22/25 13:05 Chloride 100 mmol/L (98-107) 08/22/25 13:05 Carbon Dioxide 29 mmol/L (22-29) 08/22/25 13:05 Anion Gap 12.4 (5-19) 08/22/25 13:05 BUN 19 mg/dL (8-23) 08/22/25 13:05 Creatinine 0.9 mg/dL (0.7-1.2) 08/22/25 13:05 GFR Calculation Not Reportable 08/22/25 13:05 Glucose 139 mg/dL (65-115) H 08/22/25 13:05 Calculated Osmolality 289 mOsm/kg (285-295) 08/22/25 13:05 Calcium 9.1 mg/dL (8.5-10.5) 08/22/25 13:05 Total Bilirubin 0.4 mg/dL (0.15-1.2) 08/22/25 13:05 AST 11 U/L (0-40) 08/22/25 13:05 ALT 15 U/L (0-41) 08/22/25 13:05 Alkaline Phosphatase 82 U/L (40-130) 08/22/25 13:05 C-Reactive Protein 4.2 mg/L (0.0-4.9) 08/22/25 13:05 Total Protein 6.8 g/dL (6.6-8.7) 08/22/25 13:05 Albumin 4.0 g/dL (3.5-5.2) 08/22/25 13:05 Globulin 2.8 g/dL (1.3-4.6) 08/22/25 13:05 All radiology interpretation(s) finalized by discharge Discharge Plan Discharge Patient Disposition: Home Clinical Impression: Finger infection Condition: Stable Discharge Orders: Discharge Order (Routine); Ordered 08/22/25 Ordered By: Jermaine Eid Discharge ED (Routine); Ordered 08/22/25 Ordered By: Dariela Price Discharge Diet: Regular Discharge Activity: Limit activity as instructed Coding Level of Care Code ED Bankruptcy Manager for Daniella Mosquera
[2025-08-22 13:10] LABS: Hematocrit 48.3 % (37-53); Hemoglobin 16.20 g/dL (11.27-16.99); Mean Corpuscular HGB Conc 33.5 g/dL (30-55); Mean Corpuscular Hemoglobin 30.7 pg (27-33); Mean Corpuscular Volume 91.5 fl (82-101); Nucleated Red Blood Cells % 0 %; Platelet Count 191 10^3/cmm (157-399); Red Blood Count 5.28 10^6/uL (3.85-5.65); White Blood Count 8.21 10^3/uL (3.29-11.43)
[2025-08-22 13:28] LABS: Alanine Aminotransferase 15 U/L (0-41); Albumin Level 4.0 g/dL (3.5-5.2); Alkaline Phosphatase 82 U/L (40-130); Anion Gap 12.4 (5-19); Aspartate Amino Transferase 11 U/L (0-40); Blood Urea Nitrogen 19 mg/dL (8-23); Calcium 9.1 mg/dL (8.5-10.5); Carbon Dioxide 29 mmol/L (22-29); Chloride 100 mmol/L (98-107); Globulin 2.8 g/dL (1.3-4.6); Glucose 139 mg/dL (65-115); Osmolality Calculated 289 mOsm/kg (285-295); Potassium 4.4 mmol/L (3.5-5.1); Sodium 137 mmol/L (136-145); Total Protein 6.8 g/dL (6.6-8.7)
[2025-08-22] MEDS: piperacillin-tazobactam 4.5 GM in sodium chloride 0.9% (plus) 50 ML IV (14:04)
[2025-08-22 14:15] VITALS: BP 91/51; PULSE 79; O2SAT 89
[2025-08-22 16:07] VITALS: PULSE 69; RESP 17; O2SAT 91
[2025-08-22 16:37] VITALS: BP 122/78; PULSE 88; O2SAT 93
--- NOTE | 2025-08-22 16:37 | PM.CONSULT ---
Documented by User: JESSIKA Ervin 08/23/25 11:55 Providers/Reason For Consult Consulting Physician/Specialty*: Dr. Stanton DO/orthopedic surgeon Reason for Consult*: Left middle finger traumatic amputation. Attending Physician: Jermaine Eid DO Primary Care Provider: Hoa Villeda MD History of Present Illness History of Present Illness German Carreon is a 75-year-old man who presents emergency room with left middle finger pain post dog bite injury. he was seen in the emergency room at 10 days for a dog bite. The dog had taken large portions of tissue away and he had a distal phalanx fracture as well on the middle finger. He finished antibiotics yesterday and says pain and swelling have continued. Orthopedics was consulted on worsening finger Review of Systems Narrative: Constitutional symptoms: Negative except as documented in HPI. Skin symptoms: Negative except as documented in HPI. Eye symptoms: Negative except as documented in HPI. ENMT symptoms: Negative except as documented in HPI. Respiratory symptoms: Negative except as documented in HPI. Cardiovascular symptoms: Negative except as documented in HPI. Gastrointestinal symptoms: Negative except as documented in HPI. Genitourinary symptoms: Negative except as documented in HPI. Musculoskeletal symptoms: Negative except as documented in HPI. Neurologic symptoms: Negative except as documented in HPI. Psychiatric symptoms: Negative except as documented in HPI. Endocrine symptoms: Negative except as documented in HPI. Medications/Allergies Home Medications ?Medication ?Instructions ?Recorded ?Confirmed ?Last Taken ?Type aspirin 81 mg tablet,delayed 81 mg PO DAILY 07/13/21 08/10/25 06/24/25 07:00 History release atenolol 100 mg tablet 50 mg PO DAILY 07/13/21 08/10/25 06/24/25 07:00 History pregabalin 150 mg capsule 150 mg PO BEDTIME 07/13/21 08/10/25 06/23/25 20:30 History simvastatin 80 mg tablet 80 mg PO DAILY 07/13/21 08/10/25 06/24/25 07:00 History tamsulosin 0.4 mg capsule 0.4 mg PO DAILY 07/13/21 08/10/25 06/23/25 20:30 History alpha lipoic acid 600 mg capsule 600 mg PO BID 01/21/22 08/10/25 11/15/24 History glipizide 5 mg tablet 5 mg PO BID 01/21/22 08/10/25 06/23/25 20:30 History fluticasone propionate 50 2 spray intranasal DAILY PRN 08/07/23 08/10/25 11/15/24 History mcg/actuation nasal allergy symptoms spray,suspension (Allergy Relief (fluticasone)) doxepin 75 mg capsule 150 mg PO DAILY 04/07/24 08/10/25 06/23/25 20:30 History metformin 1,000 mg tablet 1,000 mg PO BID 06/10/24 08/10/25 06/23/25 20:30 History Held on 06/25/25. Instructions: Resume on 06/27/25. pregabalin 200 mg capsule 200 mg PO BEDTIME 06/10/24 08/10/25 06/23/25 20:30 History finasteride 5 mg tablet 5 mg PO DAILY 10/01/24 08/10/25 06/23/25 20:30 History CAM walker #1 ea 04/07/25 08/10/25 Unknown Rx custom orthotic inserts A5513 #2 ea 04/19/25 08/10/25 Unknown Rx 1 pair Diabetic shoes- A5500 #1 ea 05/25/25 08/10/25 Unknown Rx clopidogrel 75 mg tablet 75 mg PO DAILY #90 tabs 07/22/25 08/10/25 Unknown Rx isosorbide mononitrate 60 mg 90 mg (1.5 x 60 mg) PO DAILY #135 07/22/25 08/10/25 Unknown Rx tablet,extended release 24 hr tabs lisinopril 10 1 tab PO DAILY #90 tabs 07/22/25 08/10/25 Unknown Rx mg-hydrochlorothiazide 12.5 mg tablet ranolazine 1,000 mg 1,000 mg PO BID #270 tabs 07/22/25 08/10/25 Unknown Rx tablet,extended release,12 hr amoxicillin 500 mg-potassium 1 tab PO BID #14 tabs 08/11/25 Unknown Rx clavulanate 125 mg tablet (Augmentin) amoxicillin 875 mg-potassium 1 tab PO BID 10 days #20 tabs 08/22/25 Unknown Rx clavulanate 125 mg tablet hydrocodone 5 mg-acetaminophen 325 1 tab PO Q8H PRN pain #14 tabs 08/22/25 Unknown Rx mg tablet polyethylene glycol 3350 17 17 g PO DAILY #510 grams 08/22/25 Unknown Rx gram/dose oral powder (Miralax) Allergies Allergy/AdvReac Type Severity Reaction Status Date / Time No Known Allergies Allergy Verified 08/22/25 12:48 PFSH Acute PFSH: Medical History (Updated 08/22/25 @ 15:39 by Dariela Price MD) History of nonmelanoma skin cancer History of malignant melanoma Atherosclerotic heart disease of [place] coronary artery with unspecified angina pectoris Benign prostatic hyperplasia with lower urinary tract symptoms Carpal tunnel syndrome Hypertension Hyperlipidemia Major depressive disorder Male erectile dysfunction Multiple nodules of lung PTSD (post-traumatic stress disorder) Type 2 diabetes mellitus Alcohol abuse Opioid abuse Malignant neoplasm of skin Thoracic aortic aneurysm without rupture Surgical History Hx of coronary artery bypass surgery Social History Smoking and tobacco/nicotine status: never used tobacco/nicotine Alcohol intake: former Vitals/I&O/Wt Last Vital Signs Temp 98.0 F 08/22/25 12:42 Pulse 69 08/22/25 16:07 Resp 17 08/22/25 16:07 BP 91/51 08/22/25 14:15 Pulse Ox 91 08/22/25 16:07 O2 Del Method Room Air 08/22/25 16:07 Weight last 48 hrs Weight 300 lb Physical Exam Const: COMMON NORMALS: no acute distress and alert Resp: COMMON NORMALS: normal respiratory effort and No retractions Cardio: COMMON NORMALS: Peripheral pulses 2+ throughout PERIPHERAL PULSES: Peripheral pulses 2+ throughout Extremity: NARRATIVE EXTREMITY EXAM: Left hand?middle finger distal end of finger has extensive soft tissue damage with no nail plate present and nailbed laceration seen. Sutures intact. No purulent drainage but distal end of finger is red and swollen. No streaking seen up in the hand or arm. Tenderness to palpation over distal end of finger. Neuro: SENSORIUM/ORIENTATION: Yes alert Skin: GENERAL SKIN EXAM: dry skin Data 08/22/25 13:05 08/22/25 13:05 Xray Ortho: Radiologist's impression: Patient: German Carreon Unit #: [id number] : 1950 Age/Sex: 75 / M ADM Date: 08/22/25 Loc: ER Room/Bed: Attending: Ordering Provider/Ordering MD: Sam Elizabeth DO Date of Service: 08/22/25 Procedure(s): XR hand LT min 3V* 88090 Accession Number(s): [id number] Report Number: [id number] WS: [id number] Exam: XR hand LT min 3V* 41132 Date/Time of Exam: 08/22/2025 1:02 PM Reason For Exam: trauma DLP: There is a comminuted fracture of the distal end of the third distal phalanx with separation and displacement of fracture fragments. Extensive soft tissue laceration noted in this region. No other fractures of the hand are identified. The joints are preserved. Ring obscures parts of the fourth proximal phalanx. XR/XR hand LT min 3V* [id number] IMPRESSION: 1. Comminuted displaced fracture of the distal end of the third distal phalanx with associated soft tissue laceration. Dictated By: [place], DO A&P Assessment and plan 1. Open fracture of tuft of distal phalanx of finger: 2. Dog bite: 3. Finger infection: Plan: Plan: - Patient will be taken to the OR today for a left middle finger I&D with possible revision amputation. Patient is a 75-year-old male had a dog bite on distal end of left middle finger with extensive damage and distal phalanx fracture and that injury occurred 10 days ago and he was seen in the emergency department at that time. Finger was cleaned out and sutured and he was put on a 10-day course of Augmentin. Patient returned to the emergency department today because patient's finger has gotten more painful red and swollen and he has failed conservative treatment. Upon exam patient does have some swelling erythema and warmth to the distal end of finger with extensive tissue damage and failed conservative treatment. He also has an open fracture of the distal phalanx of the left middle finger so he is at risk of a worsening infection and possible increased risk of developing osteomyelitis, so left middle finger I&D with possible revision amputation would be the next best treatment option. PDMP PDMP Reviewed: Not Reviewed Coding Level of Care Code Acute Code for [facility] Diagnoses Open fracture of tuft of distal phalanx of finger S62.639B Dog bite W54.0XXA Finger infection L08.9 Documented by User: Jermaine Eid DO 08/26/25 23:23 History of Present Illness History of Present Illness German Carreon is a 75-year-old man who presents emergency room with left middle finger pain post dog bite injury. he was seen in the emergency room at 10 days for a dog bite. The dog had taken large portions of tissue away and he had a distal phalanx fracture as well on the middle finger. He finished antibiotics yesterday and says pain and swelling have continued. Orthopedics was consulted on worsening finger Patient and complaining of some foul odor and some drainage at the tip of the finger. Medications/Allergies Home Medications ?Medication ?Instructions ?Recorded ?Confirmed ?Last Taken ?Type aspirin 81 mg tablet,delayed 81 mg PO DAILY 07/13/21 08/10/25 06/24/25 07:00 History release atenolol 100 mg tablet 50 mg PO DAILY 07/13/21 08/10/25 06/24/25 07:00 History pregabalin 150 mg capsule 150 mg PO BEDTIME 07/13/21 08/10/25 06/23/25 20:30 History simvastatin 80 mg tablet 80 mg PO DAILY 07/13/21 08/10/25 06/24/25 07:00 History tamsulosin 0.4 mg capsule 0.4 mg PO DAILY 07/13/21 08/10/25 06/23/25 20:30 History alpha lipoic acid 600 mg capsule 600 mg PO BID 01/21/22 08/10/25 11/15/24 History glipizide 5 mg tablet 5 mg PO BID 01/21/22 08/10/25 06/23/25 20:30 History fluticasone propionate 50 2 spray intranasal DAILY PRN 08/07/23 08/10/25 11/15/24 History mcg/actuation nasal allergy symptoms spray,suspension (Allergy Relief (fluticasone)) doxepin 75 mg capsule 150 mg PO DAILY 04/07/24 08/10/25 06/23/25 20:30 History metformin 1,000 mg tablet 1,000 mg PO BID 06/10/24 08/10/25 06/23/25 20:30 History Held on 06/25/25. Instructions: Resume on 06/27/25. pregabalin 200 mg capsule 200 mg PO BEDTIME 06/10/24 08/10/25 06/23/25 20:30 History finasteride 5 mg tablet 5 mg PO DAILY 10/01/24 08/10/25 06/23/25 20:30 History CAM walker #1 ea 04/07/25 08/10/25 Unknown Rx custom orthotic inserts A5513 #2 ea 04/19/25 08/10/25 Unknown Rx 1 pair Diabetic shoes- A5500 #1 ea 05/25/25 08/10/25 Unknown Rx clopidogrel 75 mg tablet 75 mg PO DAILY #90 tabs 07/22/25 08/10/25 Unknown Rx isosorbide mononitrate 60 mg 90 mg (1.5 x 60 mg) PO DAILY #135 07/22/25 08/10/25 Unknown Rx tablet,extended release 24 hr tabs lisinopril 10 1 tab PO DAILY #90 tabs 07/22/25 08/10/25 Unknown Rx mg-hydrochlorothiazide 12.5 mg tablet ranolazine 1,000 mg 1,000 mg PO BID #270 tabs 07/22/25 08/10/25 Unknown Rx tablet,extended release,12 hr amoxicillin 500 mg-potassium 1 tab PO BID #14 tabs 08/11/25 Unknown Rx clavulanate 125 mg tablet (Augmentin) amoxicillin 875 mg-potassium 1 tab PO BID 10 days #20 tabs 08/22/25 Unknown Rx clavulanate 125 mg tablet hydrocodone 5 mg-acetaminophen 325 1 tab PO Q8H PRN pain #14 tabs 08/22/25 Unknown Rx mg tablet polyethylene glycol 3350 17 17 g PO DAILY #510 grams 08/22/25 Unknown Rx gram/dose oral powder (Miralax) Allergies Allergy/AdvReac Type Severity Reaction Status Date / Time No Known Allergies Allergy Verified 08/22/25 12:48 PFSH Acute PFSH: Medical History (Updated 08/22/25 @ 15:39 by Dariela Price MD) History of nonmelanoma skin cancer History of malignant melanoma Atherosclerotic heart disease of [place] coronary artery with unspecified angina pectoris Benign prostatic hyperplasia with lower urinary tract symptoms Carpal tunnel syndrome Hypertension Hyperlipidemia Major depressive disorder Male erectile dysfunction Multiple nodules of lung PTSD (post-traumatic stress disorder) Type 2 diabetes mellitus Alcohol abuse Opioid abuse Malignant neoplasm of skin Thoracic aortic aneurysm without rupture Surgical History Hx of coronary artery bypass surgery Social History Smoking and tobacco/nicotine status: never used tobacco/nicotine Alcohol intake: former Physical Exam Extremity: NARRATIVE EXTREMITY EXAM: Left hand?middle finger distal end of finger has extensive soft tissue damage with no nail plate present and nailbed laceration seen. Sutures intact. No purulent drainage but mild drainage noted and distal end of finger is red and swollen. No streaking seen up in the hand or arm. Tenderness to palpation over distal end of finger. No TTP over flexor tendon sheath Data 08/22/25 13:05 08/22/25 13:05 Other Labs: ESR 1 CRP 4.2 A&P Assessment and plan 1. Open fracture of tuft of distal phalanx of finger: 2. Dog bite: 3. Finger infection: Plan: Plan: - Patient will be taken to the OR today for a left middle finger I&D with possible revision amputation. Patient is a 75-year-old male had a dog bite on distal end of left middle finger with extensive damage and distal phalanx fracture and that injury occurred 10 days ago and he was seen in the emergency department at that time. Finger was cleaned out and sutured and he was put on a 10-day course of Augmentin. Patient returned to the emergency department today because patient's finger has gotten more painful red and swollen and he has failed conservative treatment. Upon exam patient does have some swelling erythema and warmth to the distal end of finger with extensive tissue damage and failed conservative treatment. He also has an open fracture of the distal phalanx of the left middle finger so he is at risk of a worsening infection and possible increased risk of developing osteomyelitis, so left middle finger I&D with possible revision amputation would be the next best treatment option. Orthopedic attending addendum: Patient at this point in time has a left middle finger injury tip with open distal phalanx fracture was treated emergency department with bedside I&D repair patient has finished antibiotics outpatient setting is increased erythema subtle drainage they are complaining of some foul odor at this point in time given the clinical presentation patient currently at this point there is no white count and inflammatory markers are still normal but from a clinical this appears to be getting infected after patient's failed respond to conservative treatment is having worsening pain at this point in time shared decision making we talked about his treatment options in detail with patient and as far as nonoperative intervention through shared decision making patient like proceed with surgical intervention for left middle finger irrigation debridement with possible revision amputation. Risk of surge include but not limited to make a better make it worse, injure nerves also or tendons nail deformity failure of nail to regrow, worsening infection, possible amputation. Understanding risk of surgery patient elects proceed with surgical intervention all questions answered at this time. Plan will be to do this under local only anesthesia. Once again patient understands and agrees all questions answered at this time. Agree with PAs assessment and plan will proceed to the OR today from the emergency department patient be taken to the OR today plan of discharging home. Will send a new p.o. antibiotic prescription postoperatively. PDMP PDMP Reviewed: Not Reviewed Coding Level of Care Code Acute Code for [facility] Diagnoses Open fracture of tuft of distal phalanx of finger S62.639B Dog bite W54.0XXA Finger infection L08.9
[2025-08-22 16:53] VITALS: BP 159/98; PULSE 69; RESP 17; TEMP 36.2; O2SAT 95
--- NOTE | 2025-08-22 16:57 | SC_ITS ---
WS: [id number] Exam: C-arm Mini [id number] Date/Time of Exam: 08/22/2025 4:57 PM Reason For Exam: Left middle finger distal phalanx open fracture DLP: Limited AP C-arm images of the distal third finger are submitted. Images were obtained for intraoperative visualization purposes.
[2025-08-22] MEDS: ROPivacaine 0.5% SDV 30 mL 15 MG INJECTION (19:53)
--- NOTE | 2025-08-22 20:30 | P.BOP_ITS ---
Date of Procedure: [08/26/25] Surgeon: [Jermaine Eid DO] Clinical Quality Assurance Specialist(s): none Procedure(s) performed: Left middle finger irrigation and debridement (1.5 x 2 x 1 cm) Left middle finger nailbed repair Findings of the procedure(s): patient underwent procedure as per without issues or complications did culture the wound intraoperatively. Estimated blood loss: [3 mL ] Specimen(s) removed: [cultures taken of wound] Post-operative diagnosis: [Left middle finger dog bite with distal phalanx fracture, nailbed injury, infection]
[2025-08-22] MEDS: neomycin-poly-bacitracin oint 28 gm 1 APPLIC TOPICAL (20:33)
--- NOTE | 2025-08-22 20:35 | PM.OP ---
Operative Report Date of procedure: August 22, 2025 Pre-op diagnosis: Left middle finger status post dog bite with nailbed injury, open distal phalanx fracture, infection Post-op diagnosis: Same Procedure done: Left middle finger irrigation and debridement (1.5 x 2 x 1 cm) Left middle finger nailbed repair Specimens removed/disposition: Cultures taken of the wound aerobic and anaerobic and sent for micro Surgeon: Jermaine Eid DO Front Office Secretary: None Anesthesia: Local Estimated blood loss: 3mL Finger tourniquet 36 minutes IV fluids: 100 mL Complications: None Findings: See operative report narrative Condition: stable Disposition: same day Brief History: Patient is 75-year-old male had a dog bite to the left middle finger sustaining that wrist initially evaluated emergency department underwent bedside I&D and lack repair and was on antibiotics unfortunately this is started to have some foul odor and some subtle drainage no significant lab findings of this being severely infected but clinically he does have presentation of this with some drainage he is already been on antibiotics at this point time talked about case for her as well as they consulted orthopedics and as result orthopedics consulted for evaluation discussion with patient and talked about treatment options in detail and through shared decision making agreed to receive surgical invention for left middle finger irrigation debridement possible revision amputation. Understanding of the procedure risk benefits complication alternatives surgical nonsurgical treatment options currently around surgery patient like to proceed with surgical invention all questions answered. Will Procedure: Patient was seen evaluate in the preoperative holding area. Consent was reviewed and signed with patient. Correct digit/extremity was then subsequently marked. Patient was then seen evaluated once cleared for surgery patient was taken back to the operative suite. Patient was kept on hospital [place] and armboard was applied to Left upper extremity. Patient planned for local anesthesia. Left upper extremity was then prepped and draped in standard orthopedic fashion. Final timeout performed. Patient received appropriate preoperative antibiotics. Then under sterile aseptic technique performed a digital block to the left middle finger once patient was appropriately anesthetized proceed with the procedure. Finger turnicot was placed over the Left middle finger and started the insufflation of finger turnicot. This point in time I then subsequently evaluated Left middle finger patient's crush injury and open laceration around the finger pulp was inspected.? Previous areas where this has been stitched as well as patient was having some drainage and fibrinous slough tissue throughout. subsequently the sutures and then subsequently there was a small remnant of the nail plate distally which [place] was then released and then subsequently inspected the wound and traumatically injure directly down into the bone. I then noted that there was some subtle murky fluid in this area which was then subsequently cultured with aerobic and anaerobic cultures and sent for micro. The bone fragments were noted distally any loose fragments or then subsequently removed with rongeur which was confirmed to being with mini C arm throughout the procedure. And total area of I&D was 1.5 cm x 2 cm x 1 cm area this area of irrigation and debridement was removed with sharp scalpel incision and there is send this subcutaneous tissue fascia and bone. Care was to leave the main bone fragments of the distal pieces this was helping somewhat matrix. There was a horizontal/transverse disruption of the laceration through the nailbed. At this point in time this did appear to be salvageable and there was no need for any type of revision amputation. Once this was done I then subsequently performed thorough irrigation and had all devitalized tissue removed and was to viable tissue. At this point in time I then subsequently reapproximated the nailbed with chromic suture. I did make small incisions in the eponychial folds in the corners just to have a good visualization there did appear to be intact germinal matrix. At this point in time I did utilize chromic suture to repair any of the lacerations around the finger as well. Once this was then subsequently performed I then had satisfactory repair of the nailbed and then subsequently removed the finger turnicot, hemostasis satisfactory I then placed triple antibiotic ointment and then subsequently placed a nonstick Xeroform gauze up underneath the eponychial fold and closed the eponychial fold lacerations with chromic suture. At this point time I was satisfied with the irrigation debridement as well as my repair.? I then dressed this with a bulky soft dressing of Xeroform 4 x 4's Cee wrap Toni wrap and a finger splint. Patient was then awake from anesthesia taken PACU in stable condition. Disposition: Patient taken PACU in stable condition,recovered well patient tolerated procedure without issue complication will complete postoperative antibiotics, given appropriate discharge instruction as well as pain medication will follow-up in the office in 2 weeks. Patient understands agrees to current plan. Questions answered
[2025-08-22] MEDS: ampicillin-sulbactam 3 GM in sodium chloride 0.9% (plus) 50 ML IV (21:09)
[2025-08-22 21:16] VITALS: BP 141/90; PULSE 75; RESP 18; TEMP 36.6; O2SAT 91
--- NOTE | 2025-08-22 21:37 | SUR.PHASEII ---
Patient given 2 hydrocodone 5/325mg tabs to take home with him per dr cho since his pharmacy does not open until tomorrow morning.
== END 2025-08-22 21:45 | disposition home or self-care (01) ==
LOC: ER 15:40 → OR 16:37
PROVIDERS: Family Medicine; Emergency Provider Emergency Medicine; PCP Family Medicine; Visit Provider Student in an Organized Health Care Education/Training Program
PROC: (CPT 11012; principal; 2025-08-22 19:20)
DX: S61.353A Open bite of left middle finger with damage to nail, initial encounter (principal); L08.9 Local infection of the skin and subcutaneous tissue, unspecified; W54.0XXA Bitten by dog, initial encounter; E11.9 Type 2 diabetes mellitus without complications; Z79.82 Long term (current) use of aspirin; Z79.84 Long term (current) use of oral hypoglycemic drugs; Z79.02 Long term (current) use of antithrombotics/antiplatelets; Z79.891 Long term (current) use of opiate analgesic; Z85.828 Personal history of other malignant neoplasm of skin; I10 Essential (primary) hypertension; E78.5 Hyperlipidemia, unspecified; F43.10 Post-traumatic stress disorder, unspecified; I25.118 Atherosclerotic heart disease of native coronary artery with other forms of angina pectoris; Z95.1 Presence of aortocoronary bypass graft
CPT/HCPCS: 11012; 11760; 73130; 76000; 80053; 85025; 85651; 86140; 87070; 87075; 87205; J0295; J2543; J2795; J3372; J9999

== ENCOUNTER → 2025-08-29 10:45 | Outpatient (BNVA) | payer OTHER, SELFPAY | PROVIDERS: PCP Family Medicine; Visit Provider Podiatrist Foot & Ankle Surgery | DX: E11.42 Type 2 diabetes mellitus with diabetic polyneuropathy (principal); M20.21 Hallux rigidus, right foot; L97.512 Non-pressure chronic ulcer of other part of right foot with fat layer exposed; E11.621 Type 2 diabetes mellitus with foot ulcer; Z79.84 Long term (current) use of oral hypoglycemic drugs; M21.611 Bunion of right foot; M21.612 Bunion of left foot | CPT/HCPCS: 99213 ==

== ENCOUNTER 2025-09-01 12:32 | Outpatient (RCR) | payer OTHER, SELFPAY | END 2025-09-21 23:59 | disposition home or self-care (01) | LOC: SOT 12:32 | PROVIDERS: PCP Family Medicine; Visit Provider Student in an Organized Health Care Education/Training Program | DX: L08.9 Local infection of the skin and subcutaneous tissue, unspecified (principal) | CPT/HCPCS: 97760; L3935 ==

== ENCOUNTER → 2025-09-07 10:31 | Outpatient (BNVA) | payer OTHER, SELFPAY | PROVIDERS: PCP Family Medicine; Visit Provider Physician Assistant | DX: Z98.890 Other specified postprocedural states (principal); L08.9 Local infection of the skin and subcutaneous tissue, unspecified | CPT/HCPCS: 99024 ==

== ENCOUNTER → 2025-09-09 09:37 | Outpatient (BNVA) | payer OTHER, SELFPAY | PROVIDERS: PCP Family Medicine; Visit Provider Nurse Practitioner Family | DX: R07.89 Other chest pain (principal); I25.10 Atherosclerotic heart disease of native coronary artery without angina pectoris; J44.9 Chronic obstructive pulmonary disease, unspecified; I10 Essential (primary) hypertension; Z95.1 Presence of aortocoronary bypass graft | CPT/HCPCS: 99214 ==